=== PATIENT | female | born 1955 | race Two or more races ===

== ENCOUNTER → 2020-06-17 09:55 | Outpatient (BNVA) | payer MEDICARE, SELFPAY | PROVIDERS: PCP Physician Assistant; Referring Provider Physician Assistant; Visit Provider Internal Medicine Gastroenterology | DX: K57.30 Diverticulosis of large intestine without perforation or abscess without bleeding (principal); K63.5 Polyp of colon; E53.8 Deficiency of other specified B group vitamins; Z98.890 Other specified postprocedural states | CPT/HCPCS: 99212 ==

== ENCOUNTER 2021-03-23 10:27 | Outpatient (REF) | payer MEDICARE, SELFPAY ==
--- NOTE | ~2021-03-23 | CT_ITS ---
EXAMINATION: CT CHEST SCREENING CLINICAL INFORMATION: Personal history of nicotine dependence. COMPARISON: 10/29/2019 TECHNIQUE: Multidetector volumetric CT imaging of the chest was performed without contrast using low-dose technique. Additional 2D coronal and sagittal reformatted images and axial 3D maximum intensity projection (MIP) images were generated on the CT workstation. This CT examination was performed using dose optimization techniques as appropriate, variously including the following: *Automated exposure control *Adjustment of mA and/or kV according to patient size (this includes techniques or standardized protocols for targeted exams where dose is matched to indication/reason for exam; i.e. extremities or head) *Use of iterative reconstruction technique DLP: 39 mGy-cm FINDINGS: LUNGS: Central airways are patent. No confluent airspace disease is identified. Mild changes of centrilobular emphysema seen in the upper lobes bilaterally. No significant interstitial thickening is seen. No bronchiectasis noted. Calcified granulomas are noted bilaterally. There are some sub-4 mm densities present. The patient has developed multiple bilateral small peripheral regions of ground-glass opacity which are likely due to endobronchial disease. Some of these densities/nodules are listed below: 5 mm noncalcified nodule within the right upper lobe on image 203 of 441. 6 mm noncalcified nodule posterior aspect of the right upper lobe on image 171 of 441. 4 mm noncalcified density within the right lower lobe on image 240 of 441. Subpleural 6 mm noncalcified density within the right upper lobe adjacent to the major fissure on image 139 of 441. 4 mm left upper lobe noncalcified density on image 149 of 441. 4 mm noncalcified nodule along the major fissure on the left on image 282 of 441. 4 mm noncalcified nodule within the left upper lobe on image 132 of 441. MEDIASTINUM: Heart normal size. No pericardial effusion. There are some coronary artery calcifications seen. Thyroid gland appears unremarkable. No evidence of mediastinal or hilar lymphadenopathy. No thoracic aortic aneurysm. PLEURA: There is no pleural effusion. No pleural mass or thickening. AXILLAE: No lymphadenopathy. UPPER ABDOMEN: Unremarkable. OSSEOUS STRUCTURES: No suspicious destructive bony lesions identified. CT/CT lung screening IMPRESSION: Old granulomatous disease. Numerous peripheral somewhat ill-defined densities, likely related to endobronchial disease, which may be inflammatory or infectious in etiology. ASSESSMENT: Lung-RADS category 4A: Suspicious. RECOMMENDATION: Short interval 3 month follow up low dose CT chest.
== END 2021-03-23 10:28 | disposition home or self-care (01) ==
LOC: HO.CT 10:27
PROVIDERS: Visit Provider Physician Assistant Medical
DX: Z12.2 Encounter for screening for malignant neoplasm of respiratory organs (principal); Z87.891 Personal history of nicotine dependence
CPT/HCPCS: 71271

== ENCOUNTER → 2021-04-13 08:45 | Outpatient (BNVA) | payer MEDICARE, SELFPAY | PROVIDERS: PCP Internal Medicine; Visit Provider Hospitalist | DX: J41.8 Mixed simple and mucopurulent chronic bronchitis (principal); R91.8 Other nonspecific abnormal finding of lung field; F17.200 Nicotine dependence, unspecified, uncomplicated; Z71.6 Tobacco abuse counseling; Z79.899 Other long term (current) drug therapy | CPT/HCPCS: 99202 ==

== ENCOUNTER 2021-04-15 10:21 | Outpatient (REF) | payer MEDICARE, SELFPAY ==
--- NOTE | ~2021-04-15 | MM_ITS ---
EXAMINATION: MM SCREENING DIGITAL BREAST TOMOSYNTHESIS, BILATERAL CLINICAL INFORMATION: Screening. Asymptomatic. Left stereotactic biopsy 11/12/2018 (Benign breast parenchyma with dense stroma and scattered foci of ductal hyperplasia, associated with a single, small focus showing microcalcification; deeper levels evaluated). The lifetime risk of breast cancer based on the Tyrer-Cuzick Model is 3%. COMPARISON: Mammography: 10/30/2019, 04/28/2019, 11/06/2018, 10/30/2018, 11/29/2015, 11/12/2015 TECHNIQUE: Digital breast tomosynthesis is performed in both the craniocaudal and mediolateral oblique views along with computer-aided detection (CAD). Synthesized 2D images are generated from the tomosynthesis. FINDINGS: There are scattered areas of fibroglandular density (ACR BI-RADS breast composition Category b). Breast tissue composition borders on heterogeneously dense. Parenchymal pattern is similar to prior studies. There is no developing density or interval mass or architectural abnormality. There is a biopsy clip marker anterior 12:00 left breast with stable adjacent calcifications. The axilla and skin contours are unremarkable. MM/MM tomosynthesis screening BI IMPRESSION: No significant changes from prior studies. ASSESSMENT: BI-RADS 2: Benign RECOMMENDATION: Routine annual mammography screening. This patient's information was entered into a reminder system with a target due date for their next mammogram.
== END 2021-04-15 10:22 | disposition home or self-care (01) ==
LOC: HO.MAMMO 10:21
PROVIDERS: Visit Provider Internal Medicine
DX: Z12.31 Encounter for screening mammogram for malignant neoplasm of breast (principal)
CPT/HCPCS: 77063; 77067

== ENCOUNTER 2021-07-06 09:00 | Outpatient (RCR) | payer MEDICARE, SELFPAY ==
--- NOTE | 2021-06-20 09:04 | MHC.PT.EP ---
[facility] [place] Office [place] Office [place] Office [address] [place] Peñaloza [address] [phone] F: [phone] F: [phone] F: [phone] F: [phone] Physical Therapy Plan of Care Date of Evaluation: Date of Surgery: Diagnosis: dizziness Assessment: The patient was + for upbeating torsional nystagmus. She tolerated CRM well for the right side. Pt will benefit from balance assessment and vor assessment once BPPV is resolved. Frequency and Duration: The patient will be seen 1x/week x 4 weeks. Short Term Goals: 1.Pt to be negative for nystagmus in all diagnostic positions for BPPV to facilitate improved functional movements. Stopboard Assembler Goals: 1. For the patient to be negative for nystagmus or reports of vertigo in all diagnostic positions bilaterally to resolution of BPPV in 4 weeks. 2. For the patient to be able to functionally move in all planes and directions without provocation of dizziness to show return to PLOF. 3.For the patient to be educated on symptoms and indications to return to therapy when needed in 4 weeks. Treatment Plan: Modalities to reduce pain, spasms and effusion. Manual therapy to restore motion and function. Therapeutic exercise to improve strength and flexibility. Neuromuscular re-education for posture and balance. Therapeutic activities to return to functional activities of daily living. Electronically signed by: Gauri Escoto PT DPT Please sign and return to therapist. Thank you for your referral.
== END 2021-07-10 08:00 | disposition home or self-care (01) ==
LOC: HO.PT 09:00
PROVIDERS: PCP Internal Medicine; Visit Provider Internal Medicine
DX: R42 Dizziness and giddiness (principal)
CPT/HCPCS: 95992; 97033; 97112; 97161

== ENCOUNTER 2021-07-11 10:57 | Outpatient (REF) | payer MEDICARE, SELFPAY ==
--- NOTE | ~2021-07-11 | CT_ITS ---
EXAMINATION: CT CHEST SCREENING CLINICAL INFORMATION: Nicotine dependence. COMPARISON: CT lung screening 03/23/2021. TECHNIQUE: Multidetector volumetric CT imaging of the chest is performed without contrast using low-dose technique. Additional 2D coronal and sagittal reformatted images and axial 3D maximum intensity projection (MIP) images are generated on the CT workstation. This CT examination was performed using dose optimization techniques as appropriate, variously including the following: *Automated exposure control *Adjustment of mA and/or kV according to patient size (this includes techniques or standardized protocols for targeted exams where dose is matched to indication/reason for exam; i.e. extremities or head) *Use of iterative reconstruction technique DLP: 38 mGy-cm FINDINGS: LUNGS: Mild emphysematous lungs or hyperinflation seen. No acute pneumonic consolidation. There are a few calcified scattered granulomas seen in the left lower lobe and lingular segments. Previously described noncalcified pulmonary nodules in the right upper lobe and right lower lobe are not visualized at this time. MEDIASTINUM: The thyroid lobes are symmetric and normal. The central trachea and the bronchi are widely patent. Heart size and the great vessels are normal caliber. No pericardial effusion is seen. No abnormal mediastinal or hilar lymph nodes are visualized. PLEURA: There is no pleural effusion. No pleural mass or thickening. AXILLAE: No lymphadenopathy. UPPER ABDOMEN: Visualized liver, spleen, pancreas and bilateral adrenal glands are unremarkable. OSSEOUS STRUCTURES: There is mild spondylosis of the dorsal spine. No lytic or sclerotic process is seen. CT/CT lung screen follow up IMPRESSION: Interval resolution of several 4 mm noncalcified nodules in both upper lobes and the right lower lobe. Those were inflammatory nodules and have resolved. No change in the punctate calcified granulomas in left lower lobe. No new pulmonary nodules seen. No abnormal mediastinal or hilar lymphadenopathy. ASSESSMENT: Lung-RADS category 2: Benign RECOMMENDATION: Low-dose annual CT chest.
== END 2021-07-11 10:58 | disposition home or self-care (01) ==
LOC: HO.CT 10:57
PROVIDERS: PCP Internal Medicine; Visit Provider Physician Assistant Medical
DX: Z12.2 Encounter for screening for malignant neoplasm of respiratory organs (principal); Z87.891 Personal history of nicotine dependence
CPT/HCPCS: 71250

== ENCOUNTER → 2021-07-22 10:27 | Outpatient (BNVA) | payer MEDICARE, SELFPAY | PROVIDERS: PCP Internal Medicine; Visit Provider Surgery | DX: R91.8 Other nonspecific abnormal finding of lung field (principal); Z79.899 Other long term (current) drug therapy; F17.210 Nicotine dependence, cigarettes, uncomplicated | CPT/HCPCS: 99212 ==

== ENCOUNTER 2021-09-15 10:29 | Outpatient (REF) | payer MEDICARE, SELFPAY ==
[2021-09-15 10:54] LABS: MANUAL DIFF FLAG NO
[2021-09-15 11:35] LABS: Basophils Percent Auto 0.5 % (0-2); Eosinophils Absolute Auto 1.2 X10*3/uL (0.0-0.4); Eosinophils Percent Auto 15.2 % (0-4); Hematocrit 41.9 % (37.0-47.0); Hemoglobin 13.8 g/dl (12.0-16.0); Imm Gran Abs Auto 0.02 X10*3/uL (0.00-0.03); Imm Gran Pct Auto 0.3 % (0.0-0.4); Lymphocytes Absolute Auto 2.4 X10*3/uL (1.2-4.9); Lymphocytes Percent Auto 30.7 % (20-40); Mean Corpuscular HGB Conc 32.9 g/dl (31.0-35.0); Mean Corpuscular Hemoglobin 32.2 pg (27.0-33.0); Mean Corpuscular Volume 97.9 fL (80.0-98.0); Mean Platelet Volume 11.9 fL (9.4-12.3); Monocytes Absolute Auto 0.4 X10*3/uL (0.1-1.2); Monocytes Percent Auto 5.3 % (2-11); Neutrophils Absolute Auto 3.7 x10*3/uL (2.0-8.3); Platelet Count 263 X10*3/uL (160-400); Red Blood Count 4.28 X10*6/uL (4.20-5.50); Red Cell Distribution Width 14.4 % (11.0-16.0); White Blood Count 7.8 X10*3/uL (4.8-10.8)
[2021-09-15 11:44] LABS: Estimated Average Glucose 114 mg/dL; Hemoglobin A1c % 5.6 %
[2021-09-15 12:02] LABS: Alanine Aminotransferase 11 U/L (0-31); Albumin Level 4.3 g/dL (3.5-5.0); Alkaline Phosphatase 110 U/L (39-117); Anion Gap 12 (12-20); Aspartate Amino Transferase 14 U/L (5-31); Bilirubin Total 0.3 mg/dL (0.0-1.0); Blood Urea Nitrogen 14 mg/dL (9-16); Carbon Dioxide 28 mmol/L (22-29); Chloride 103 mmol/L (96-108); Cholesterol 240 mg/dL; Estimated Glomerular Filt Rate 60; Glucose Random 97 mg/dL (60-115); HDL Cholesterol 56 mg/dL; LDL Cholesterol Calculated 145 mg/dl; Potassium 4.5 mmol/L (3.3-5.1); Sodium 138 mmol/L (135-145); Total Protein 7.6 g/dL (6.5-8.0); Triglycerides 199 mg/dL
[2021-09-15 12:25] LABS: Free T4 (Free Thyroxine) 0.85 ng/dL (0.71-1.85); Thyroid Stimulating Hormone 3.38 uIU/mL (0.32-4.0); Vitamin D 25-OH Total 14.7 ng/mL (>30)
[2021-09-15 12:33] LABS: Folate 14.2 ng/mL (> or = 4.0); Vitamin B12 199 pg/mL (200-900)
[2021-09-19 22:47] LABS: Intrinsic Factor Antibodies Negative (Negative)
[2021-09-21 14:07] LABS: Parietal Cell Antibody <=20.0 Unit (<=20.0)
== END 2021-09-15 10:30 | disposition home or self-care (01) ==
LOC: HO.LAB 10:29
PROVIDERS: Internal Medicine Gastroenterology; PCP Internal Medicine; Visit Provider Internal Medicine
DX: E78.00 Pure hypercholesterolemia, unspecified (principal); R73.02 Impaired glucose tolerance (oral)
CPT/HCPCS: 36415; 80053; 80061; 82306; 82607; 82746; 83036; 83516; 84439; 84443; 85025; 86340

== ENCOUNTER 2021-09-23 13:28 | Outpatient (REF) | payer MEDICARE, SELFPAY ==
--- NOTE | ~2021-09-23 | MM_ITS ---
EXAMINATION: BONE DENSITOMETRY CLINICAL INDICATION: Osteoporosis. COMPARISON: Previous BD dated 05/30/2019 and baseline BD dated 06/18/2009. TECHNIQUE: Using a [employer] DXA System (software version: 13.1) manufactured by [employer], dual-energy x-ray absorptiometry was performed of the lumbar spine and left hip. The images are of good technical quality. Summary results are attached. FINDINGS: AP SPINE L1-L4: Current: BMD 0.859 g/cm2, Z-score -0.9, T-score -2.7, osteoporosis, 1.7% decrease from previous, 2.3% increase from baseline (<5% change is not significant). Prior: BMD 0.874 g/cm2. Baseline: BMD 0.840 g/cm2. LEFT FEMUR, NECK: Current: BMD 0.653 g/cm2, Z-score -1.1, T-score -2.8, osteoporosis. Prior: BMD 0.658 g/cm2. Baseline: BMD 0.670 g/cm2. LEFT FEMUR, TOTAL: Current: BMD 0.701 g/cm2, Z-score -1.0, T-score -2.4, osteopenia, 0.6% decrease from previous, 0.1% decrease from baseline (<5% change is not significant). Prior: BMD 0.705 g/cm2. Baseline: BMD 0.702 g/cm2. IDENTIFIED RISK FACTORS: Early menopause, family history (parent hip fracture), osteoporosis, secondary osteoporosis. HISTORY OF FRACTURE: None listed. MEDICATIONS: None listed. MM/XR DEXA axial skeleton IMPRESSION: 1. DIAGNOSIS: Osteoporosis based on the lowest T-score value of -2.8 in the femoral neck applying World Health Organization criteria. 2. 10-YEAR FRACTURE RISK PREDICTION, FRAX: Major osteoporotic fracture (clinical spine, forearm, hip or shoulder) 15.6%. Hip fracture 4.4%. 3. Treatment Recommendations: NOF guidelines recommend consideration for treatment in postmenopausal women and men age 50 and older presenting with the following: -A hip or vertebral (clinical or morphometric) fracture. -T-score less than or equal to -2.5 at the femoral neck or spine after appropriate evaluation to exclude secondary causes. -Low bone mass at the hip or spine and a 10-year fracture probability by FRAX of greater than or equal to 3% for hip fracture or greater than or equal to 20% for major osteoporotic fracture based on the [place] adapted WHO algorithm. 4. Other Recommendations: All treatment decisions require clinical judgment and consideration of individual patient factors, including patient preferences, comorbidities, previous drug use, risk factors not captured in the FRAX model (e.g. frailty, falls, vitamin D deficiency, increased bone turnover, interval significant decline in bone density) and possible under or overestimation of fracture risk by FRAX. Additional medical evaluation for secondary cause of low bone mineral density may be appropriate. FUTURE SCAN RECOMMENDATION: People with diagnosed cases of osteoporosis or at high risk for fracture should have regular bone mineral density tests. For patients eligible for Medicare, routine testing is allowed once every 2 years. The testing frequency can be increased to one year for patients who have rapidly progressing disease, those who are receiving or discontinuing medical therapy to restore bone mass, or have additional risk factors.
== END 2021-09-23 13:29 | disposition home or self-care (01) ==
LOC: HO.MAMMO 13:28
PROVIDERS: PCP Internal Medicine; Visit Provider Internal Medicine
DX: Z13.820 Encounter for screening for osteoporosis (principal); M81.0 Age-related osteoporosis without current pathological fracture; Z78.0 Asymptomatic menopausal state; Z87.81 Personal history of (healed) traumatic fracture
CPT/HCPCS: 77080

== ENCOUNTER 2021-11-07 12:06 | Emergency (ER) | payer MEDICARE, SELFPAY ==
--- NOTE | ~2021-11-07 | CT_ITS ---
EXAMINATION: CT HEAD WITHOUT CONTRAST CLINICAL INFORMATION: Headache. Numbness in left hand. COMPARISON: None TECHNIQUE: Contiguous axial imaging was performed from the skull base to vertex without intravenous administration of contrast. Coronal and sagittal reformatted images are performed at CT scanner This CT examination was performed using dose optimization techniques as appropriate, variously including the following: *Automated exposure control *Adjustment of mA and/or kV according to patient size (this includes techniques or standardized protocols for targeted exams where dose is matched to indication/reason for exam; i.e. extremities or head) *Use of iterative reconstruction technique DLP: 721 mGy-cm FINDINGS: There is no evidence of acute intracranial hemorrhage or territorial infarction. No abnormal mass effect or midline shift is seen. Baeza to white matter differentiation is well preserved. No extra-axial fluid collections are identified. The ventricles are normal in size. There is no abnormal attenuation within the brain parenchyma. The osseous structures and soft tissues are normal. The mastoid air cells and visualized portions of the paranasal sinuses are well aerated. CT/CT head/brain wo con IMPRESSION: No acute intracranial pathology.
[2021-11-07 14:06] VITALS: BP 165/95; PULSE 90; RESP 18; TEMP 36.6; O2SAT 96; BMI 28.0
[2021-11-07 14:24] LABS: MANUAL DIFF FLAG NO
[2021-11-07 14:25] LABS: Basophils Absolute Auto 0.1 X10*3/uL (0.0-0.2); Eosinophils Absolute Auto 0.7 X10*3/uL (0.0-0.4); Eosinophils Percent Auto 7.8 % (0-4); Hematocrit 40.6 % (37.0-47.0); Hemoglobin 13.6 g/dl (12.0-16.0); Imm Gran Abs Auto 0.02 X10*3/uL (0.00-0.03); Imm Gran Pct Auto 0.2 % (0.0-0.4); Lymphocytes Absolute Auto 3.4 X10*3/uL (1.2-4.9); Lymphocytes Percent Auto 36.1 % (20-40); Mean Corpuscular HGB Conc 33.5 g/dl (31.0-35.0); Mean Corpuscular Hemoglobin 32.2 pg (27.0-33.0); Mean Platelet Volume 10.9 fL (9.4-12.3); Monocytes Absolute Auto 0.5 X10*3/uL (0.1-1.2); Monocytes Percent Auto 5.1 % (2-11); Neutrophils Absolute Auto 4.6 x10*3/uL (2.0-8.3); Neutrophils Percent Auto 49.8 % (45-73); Platelet Count 308 X10*3/uL (160-400); Red Blood Count 4.23 X10*6/uL (4.20-5.50); Red Cell Distribution Width 14.5 % (11.0-16.0); White Blood Count 9.3 X10*3/uL (4.8-10.8)
[2021-11-07 14:43] LABS: Anion Gap 17 (12-20); Blood Urea Nitrogen 14 mg/dL (9-16); Calcium 9.7 mg/dL (8.4-10.2); Carbon Dioxide 20 mmol/L (22-29); Chloride 104 mmol/L (96-108); Creatinine Clr Calc Pharmacy 48.3; Estimated Glomerular Filt Rate > 60; Glucose Random 93 mg/dL (60-115); Potassium 4.7 mmol/L (3.3-5.1); Sodium 136 mmol/L (135-145)
== END 2021-11-07 21:01 | disposition left against medical advice (07) ==
PROVIDERS: Emergency Provider Emergency Medicine; PCP Internal Medicine
DX: R20.0 Anesthesia of skin (principal); R51.9 Headache, unspecified; I10 Essential (primary) hypertension; F17.200 Nicotine dependence, unspecified, uncomplicated
CPT/HCPCS: 36415; 70450; 80048; 85025; 99282; 99284

== ENCOUNTER 2021-11-23 10:45 | Outpatient (REF) | payer MEDICARE, SELFPAY ==
[2021-11-23 12:24] LABS: Cholesterol 223 mg/dL; HDL Cholesterol 53 mg/dL; LDL Cholesterol Calculated 136 mg/dl; Triglycerides 172 mg/dL
== END 2021-11-23 10:46 | disposition home or self-care (01) ==
LOC: HO.LAB 10:45
PROVIDERS: PCP Internal Medicine; Visit Provider Nurse Practitioner Family
DX: E78.00 Pure hypercholesterolemia, unspecified (principal)
CPT/HCPCS: 36415; 80061

== ENCOUNTER 2022-02-09 11:47 | Emergency (ER) | payer MEDICARE, SELFPAY ==
--- NOTE | ~2022-02-09 | XR_ITS ---
EXAMINATION: XR CHEST CLINICAL INFORMATION: Cough COMPARISON: Play Back Operator film from CT dated 07/11/2021, chest film dated 10/23/2019 TECHNIQUE: 2 views of the chest were obtained. FINDINGS: There is no acute finding. The lung vee are felt to be grossly clear. No infiltrate. There is no effusion. The cardiac silhouette is comparable to previous. Tortuous versus ectatic arch and descending aorta. XR/XR chest 2V IMPRESSION: No acute finding.
[2022-02-09 12:08] VITALS: BP 104/80; PULSE 78; RESP 18; TEMP 36.9; O2SAT 100; BMI 26.9
--- NOTE | 2022-02-09 12:58 | ED_ITS ---
HPI - URI/Sore Throat General Chief Complaint: Upper Respiratory Symptoms Stated Complaint: headache, cold Time Seen by Provider: 02/09/22 12:39 Source: patient Mode of arrival: ambulatory Limitations: no limitations History of Present Illness HPI Narrative: 66-year-old female with a past medical history of COPD who is still smoking, history of generalized anxiety disorder and hyperlipidemia presents for 2 weeks of worsening cough. Patient also has had runny nose. Patient is using her albuterol inhaler 4 times a day, she does not usually uses this frequently. Patient denies fevers, sore throat, body aches, abdominal pain, vomiting, diarrhea, chest pain, shortness of breath. Patient saw her PCP on January 26, she had a cough then, PCP attributed this to her COPD. Related Data Previous Rx's Medication Instructions Recorded mecobalamin (vitamin B12) 1,000 1,000 mcg sublingual DAILY 30 days 06/17/20 mcg disintegrating #30 tabs tablet,sublingual albuterol sulfate 90 mcg/actuation 2 inh inhalation Q6H PRN shortness 09/27/21 aerosol inhaler of breath or wheezing 30 days #18 grams fluticasone furoate 100 1 inh inhalation DAILY 30 days #60 09/27/21 mcg-vilanterol 25 mcg/dose ea inhalation powder (Breo Ellipta) hydroxyzine HCl 25 mg tablet 25 mg PO TID PRN itching #30 tabs 09/27/21 sertraline 50 mg tablet 50 mg PO DAILY #90 tabs 09/27/21 melatonin 3 mg tablet 3 mg PO BEDTIME PRN sleep #30 tabs 11/24/21 alendronate 70 mg tablet 70 mg PO QWEEK #12 tabs 12/19/21 cholecalciferol (vitamin D3) 50 50 mcg PO DAILY #90 caps 12/30/21 mcg (2,000 unit) capsule (Vitamin D3) lisinopril 5 mg tablet 5 mg PO DAILY #90 tabs 01/26/22 trazodone 50 mg tablet 50 mg PO BEDTIME PRN sleep #30 tabs 01/26/22 albuterol sulfate 90 mcg/actuation 2 puff inhalation Q4-6H PRN 02/09/22 aerosol inhaler shortness of breath or wheezing #8.5 grams benzonatate 200 mg capsule 200 mg PO TID 5 days #15 caps 02/09/22 codeine 10 mg-guaifenesin 100 mg/5 5 ml PO Q6H PRN cough #120 mL 02/09/22 mL oral liquid doxycycline hyclate 100 mg tablet 100 mg PO BID 10 days #20 tabs 02/09/22 prednisone 20 mg tablet 40 mg PO DAILY 5 days #10 tabs 02/09/22 Allergies Allergy/AdvReac Type Severity Reaction Status Date / Time No Known Allergies Allergy Verified 01/26/22 13:01 [No Known Allergies*] Review of Systems Constitutional: Constitutional: Denies body ache(s), Denies chills, Denies fatigue, Denies fever(s), Denies headache(s), Denies malaise and Denies weakness Eyes: Eyes: Denies diplopia ENT: Denies vertigo, Denies dizziness, Denies otalgia, Denies headache(s), Denies mouth pain, Reports nasal congestion, Reports nasal discharge, Denies sinus pain, Denies sinus pressure, Denies sore throat and Denies throat swelling Cardiovascular: Cardiovascular: Denies chest pain, Denies syncope, Denies leg edema, Denies lightheadedness, Denies Loss of Consciousness, Denies palpitations and Denies dyspnea Respiratory: Respiratory: Denies chest congestion, Reports cough, Reports excessive phlegm production, Denies pain on inspiration, Denies pain with cough, Denies dyspnea, Denies stridor and Denies wheezing Gastrointestinal: Gastrointestinal: Denies abdominal pain, Denies hematochezia, Denies constipation, Denies diarrhea and Denies vomiting Musculoskeletal: Musculoskeletal: Reports no additional musculoskeletal complaints Neurologic: Denies confusion, Denies vertigo, Denies dizziness, Denies syncope, Denies headache(s) and Denies weakness Psychiatric: Psychiatric: Denies anxiety, Denies confusion and Denies depression Endocrine: Endocrine: Denies fatigue and Denies palpitations Allergic/Immunologic: Allergic/Immunologic: Denies throat swelling and Denies wheezing PMFSH Past Medical History Medical History Diverticulosis Insomnia Surgical History History of colonoscopy History of left breast biopsy Family History Family History Daughter Hx of cervical cancer Father Family hx of prostate cancer Mother Myocardial infarct Maternal Aunt Pancreatic cancer, Onset Age: 55 Social History Social History Household Members: Spouse Housing: Apartment Alcohol intake: current Alcohol intake frequency: holidays/special occasions only Patient Tobacco Use Status: Current everyday Tobacco user Tobacco use type: Cigarette Cigarettes Per Day: 5 Years Smoked: 17 years e-Cigarette/Vaping Use: Never Used Second Hand Smoke Exposure: Yes Advance Directives: No Advance Directives Information Provided: No service: No Current occupational status: retired Current occupational exposures/hazards: No Cognitive needs: No Hearing needs: No Vision needs: Yes Physical Exam Vital Signs: Vital Signs: Last Vital Signs Temp 98.4 F 02/09/22 12:08 Pulse 70 02/09/22 13:41 Resp 18 02/09/22 13:41 BP 104/80 02/09/22 12:08 Pulse Ox 100 02/09/22 12:08 O2 Del Method 02/09/22 12:08 BMI result Body Mass Index 26.9 Const: General: No confusion Nutritional Appearance: well nourished Orientation/consciousness: No confusion Limitations: no limitations HEENT: Head: Yes normal to inspection, Yes normocephalic and Yes atraumatic Ears: hearing grossly normal bilaterally, external ears normal, TM's normal bilaterally and EAC's normal General nose exam: Normal external nose present Face and sinus: Yes normal facial exam and Yes sinuses nontender Mouth: Normal oral and palatal mucosa present Throat: Yes posterior oropharynx normal Eyes: Conjunctivae: conjunctivae normal Pupils: Equal, round and reactive pupils present EOM: EOMs intact bilaterally Neck: Neck: Yes full ROM, Yes no lymphadenopathy and Yes supple Resp: Effort & Inspection: normal respiratory effort and able to speak in complete sentences Auscultation: no crackles, no rales, no rhonchi, no wheezes and diminished lung sounds (Mildly bilaterally) Cardio: Rate: regular rate Rhythm: regular rhythm Heart sounds: S1 normal heart sound present and S2 normal heart sound present GI: Inspection: Yes normal to inspection Palpation (GI): Soft to palpation, nontender, no guarding and not rigid Percussion: Yes normal to percussion Auscultation: normal bowel sounds Skin: General skin exam: no rashes or lesions noted Neuro: General: No confusion Cranial nerves: Yes Equal, round and reactive pupils present Extrem: General: Yes normal to inspection and Yes full ROM Psych: Appearance: grossly normal Affect: normal affect Attitude: cooperative Thought process: Normal thought process present Course Course Course Narrative: 66-year-old female presents with 2 weeks of worsening cough and runny nose, patient has past history of COPD and continues to smoke. Patient has had to use her inhalers more frequently. No fevers. On exam, patient has no wheezes or rhonchi, lungs are mildly diminished bilaterally, ENT exam is benign The patient has stable vitals, satting 100% on room air, not tachypneic Will get COVID, flu, chest x-ray, give nebulizer Anticipate COPD exacerbation, will treat accordingly Reevaluation(s) Reevaluation #1: On reexamination, patient is moving a little more air after her breathing treatment. Chest x-ray is negative. COVID and flu are negative. Because patient has had a persistent cough for over 2 weeks will treat with antibiotics, will also treat with prednisone, albuterol inhaler, Tessalon Perles, cough syrup for night Patient should call her primary care provider for follow-up appointment from today's emergency room visit FINDINGS: There is no acute finding. The lung vee are felt to be grossly clear. No infiltrate. There is no effusion. The cardiac silhouette is comparable to previous. Tortuous versus ectatic arch and descending aorta. XR/XR chest 2V IMPRESSION: No acute finding. MDM - URI/Sore Throat Lab Data Labs: Lab Results 02/09/22 02/09/22 Range/Units 12:43 12:43 COVID-19 (RAJESH) Negative (Negative) COVID-19 Clin Com See Note Influenza Type A (KYRA) Negative (Negative) Influenza Type B (KYRA) Negative (Negative) Influenza A & B Note See Note Discharge Plan Discharge Clinical Impression: Bronchitis, Acute exacerbation of chronic obstructive pulmonary disease Patient Disposition: Home, Self-Care Instructions: Acute Bronchitis (ED), COPD (Chronic Obstructive Pulmonary Disease) (ED) Additional Instructions: Please use your albuterol inhaler, 2 puffs every 4 hours while you are awake. Please take the benzonatate 3 times a day, these are pills for cough. Please take the cough syrup at nights he can sleep. Please start the antibiotic doxycycline today. Please take the prednisone I prescribed starting tomorrow, y ou had your prednisone today. Please call your primary care provider for follow-up appointment. If you have any worsening shortness of breath, cough, fevers, please return to emergency room Prescriptions: New doxycycline hyclate 100 mg tablet 100 mg PO BID 10 Days Qty: 20 0RF albuterol sulfate 90 mcg/actuation HFA aerosol inhaler 2 puff inhalation Q4-6H PRN (Reason: shortness of breath or wheezing) Qty: 8.5 0RF codeine-guaifenesin 10-100 mg/5 mL liquid 5 ml PO Q6H PRN (Reason: cough) Qty: 120 0RF prednisone 20 mg tablet 40 mg PO DAILY 5 Days Qty: 10 0RF benzonatate 200 mg capsule 200 mg PO TID 5 Days Qty: 15 0RF No Action alendronate 70 mg tablet 70 mg PO QWEEK Qty: 12 0RF Rx Instructions: every Sunday cholecalciferol (vitamin D3) [Vitamin D3] 50 mcg (2,000 unit) capsule 50 mcg PO DAILY Qty: 90 0RF lisinopril 5 mg tablet 5 mg PO DAILY Qty: 90 2RF trazodone 50 mg tablet 50 mg PO BEDTIME PRN (Reason: sleep) Qty: 30 3RF albuterol sulfate 90 mcg/actuation HFA aerosol inhaler 2 inh inhalation Q6H PRN (Reason: shortness of breath or wheezing) 30 Days Qty: 18 2RF Breo Ellipta 100-25 mcg/dose blister with device 1 inh inhalation DAILY 30 Days Qty: 60 2RF hydroxyzine HCl 25 mg tablet 25 mg PO TID PRN (Reason: itching) Qty: 30 0RF sertraline 50 mg tablet 50 mg PO DAILY Qty: 90 0RF melatonin 3 mg tablet 3 mg PO BEDTIME PRN (Reason: sleep) Qty: 30 0RF mecobalamin (vitamin B12) 1,000 mcg tablet,disintegrating 1,000 mcg sublingual DAILY 30 Days Qty: 30 3RF Rx Instructions: place tablet under tongue and allow to dissolve for at least30 secs before swallowing
[2022-02-09 13:30] LABS: Influenza A Negative (Negative); Influenza B2 Negative (Negative)
[2022-02-09 13:31] LABS: COVID-19 Test Negative (Negative); IDNOW Serial# 16C4AD1C
[2022-02-09] MEDS: Albuterol/Iprat 2.5/0.5MG 3 ML AMPUL.NEB INHALE (13:39)
[2022-02-09 13:41] VITALS: PULSE 70; RESP 18; O2SAT 98
[2022-02-09] MEDS: guaiFENesin 200 MG/10 ML 10 ML LIQUID PO (14:35)
[2022-02-09] MEDS: predniSONE 20 MG TABLET 60 MG PO (15:15)
== END 2022-02-09 15:40 | disposition home or self-care (01) ==
PROVIDERS: Physician Assistant; Emergency Provider Student in an Organized Health Care Education/Training Program; PCP Internal Medicine
DX: J44.1 Chronic obstructive pulmonary disease with (acute) exacerbation (principal); F17.210 Nicotine dependence, cigarettes, uncomplicated; Z20.822 Contact with and (suspected) exposure to COVID-19
CPT/HCPCS: 71046; 87502; 87635; 94640; 99284

== ENCOUNTER 2022-03-09 09:51 | Outpatient (REF) | payer MEDICARE, SELFPAY ==
--- NOTE | 2022-03-09 10:00 | EMG_ITS ---
Left median and ulnar motor and sensory studies were performed. Left radial sensory study was performed. Paraspinal muscles were tested with a needle. IMPRESSION: Mild left median neuropathy across carpal tunnel. MD KING Mejia/DUANE / [id number]
== END 2022-03-09 09:52 | disposition home or self-care (01) ==
LOC: HO.NEURO 09:51
PROVIDERS: PCP Internal Medicine; Visit Provider Nurse Practitioner Family
DX: R20.0 Anesthesia of skin (principal)
CPT/HCPCS: 95886; 95909

== ENCOUNTER 2022-04-17 10:12 | Outpatient (REF) | payer MEDICARE, SELFPAY ==
--- NOTE | ~2022-04-17 | MM_ITS ---
EXAMINATION: MM SCREENING DIGITAL BREAST TOMOSYNTHESIS, BILATERAL CLINICAL INFORMATION: Screening. Asymptomatic. The lifetime risk of breast cancer based on the Tyrer-Cuzick Model is 3%. COMPARISON: Mammography: 04/15/2021, 10/30/2019, 04/28/2019, 11/06/2018, 10/30/2018 TECHNIQUE: Digital breast tomosynthesis is performed in both the craniocaudal and mediolateral oblique views along with computer-aided detection (CAD). Synthesized 2D images are generated from the tomosynthesis. FINDINGS: There are scattered areas of fibroglandular density (ACR BI-RADS breast composition Category b). Breast tissue composition borders on heterogeneously dense. Parenchymal pattern is similar to prior exams. There is no developing density or interval mass or architectural abnormality. Biopsy clip marker with stable adjacent calcifications again noted anterior 12:00 left breast. The axilla and skin contours are unremarkable. No significant changes. MM/MM tomosynthesis screening BI IMPRESSION: No mammographic evidence of malignancy. No significant changes from prior exams. ASSESSMENT: BI-RADS 2: Benign RECOMMENDATION: Routine annual mammography screening. This patient's information was entered into a reminder system with a target due date for their next mammogram.
== END 2022-04-17 10:13 | disposition home or self-care (01) ==
LOC: HO.MAMMO 10:12
PROVIDERS: Visit Provider Internal Medicine
DX: Z12.31 Encounter for screening mammogram for malignant neoplasm of breast (principal)
CPT/HCPCS: 77063; 77067

== ENCOUNTER 2022-06-30 13:12 | Outpatient (REF) | payer MEDICARE, SELFPAY ==
--- NOTE | ~2022-06-30 | CT_ITS ---
EXAMINATION: CT CHEST SCREENING CLINICAL INFORMATION: Current smoker. 1 pack per day x17 years. COMPARISON: CT chest 07/11/2021 and 10/29/2019. TECHNIQUE: Multidetector volumetric CT imaging of the chest was performed without contrast using low-dose technique. Additional 2D coronal and sagittal reformatted images and axial 3D maximum intensity projection (MIP) images were generated on the CT workstation. This CT examination was performed using dose optimization techniques as appropriate, variously including the following: *Automated exposure control *Adjustment of mA and/or kV according to patient size (this includes techniques or standardized protocols for targeted exams where dose is matched to indication/reason for exam; i.e. extremities or head) *Use of iterative reconstruction technique DLP: 41 mGy-cm FINDINGS: LUNGS: The lungs are well expanded and clear of acute pneumonic process. There are no noncalcified pulmonary nodules, mass or consolidation. There is a 2 mm calcified granuloma left lower lobe (axial image 220/6, 282/6) and several punctate, 1 mm calcified granulomas in both lower lobes and the lingula. MEDIASTINUM: Thyroid lobes are symmetrical and normal. The central trachea and the bronchi are widely patent. Heart size and the great vessels are normal caliber. No abnormal-sized mediastinal or hilar lymph nodes are seen. There is no pericardial effusion. CORONARY ARTERY CALCIFICATION: None visualized on this study. PLEURA: There is no pleural effusion. No pleural mass or thickening. AXILLA: No lymphadenopathy. There are bilateral dense breast tissues with punctate calcifications. UPPER ABDOMEN: Visualized liver, spleen, pancreas and bilateral adrenal glands are unremarkable. OSSEOUS STRUCTURES: No aggressive lytic or sclerotic process is seen. There is mild ventral spondylosis of the dorsal spine. CT/CT lung screen follow up IMPRESSION: There are punctate, calcified granulomas in both lungs but no noncalcified nodules, mass or consolidation. ASSESSMENT: Lung-RADS category 2: Benign. RECOMMENDATION: Low-dose annual CT chest.
== END 2022-06-30 13:13 | disposition home or self-care (01) ==
LOC: HO.CT 13:12
PROVIDERS: Visit Provider Surgery
DX: Z12.2 Encounter for screening for malignant neoplasm of respiratory organs (principal); Z87.891 Personal history of nicotine dependence
CPT/HCPCS: 71250

== ENCOUNTER 2022-12-20 11:16 | Outpatient (REF) | payer MEDICARE, SELFPAY ==
[2022-12-20 11:35] LABS: MANUAL DIFF FLAG NO
[2022-12-20 11:59] LABS: Basophils Percent Auto 0.5 % (0-2); Eosinophils Absolute Auto 0.6 X10*3/uL (0.0-0.4); Eosinophils Percent Auto 7.9 % (0-4); Hematocrit 41.5 % (37.0-47.0); Hemoglobin 13.5 g/dl (12.0-16.0); Imm Gran Abs Auto 0.06 X10*3/uL (0.00-0.03); Imm Gran Pct Auto 0.8 % (0.0-0.4); Lymphocytes Absolute Auto 2.5 X10*3/uL (1.2-4.9); Lymphocytes Percent Auto 31.7 % (20-40); Mean Corpuscular HGB Conc 32.5 g/dl (31.0-35.0); Mean Corpuscular Volume 95.2 fL (80.0-98.0); Mean Platelet Volume 11.1 fL (9.4-12.3); Monocytes Absolute Auto 0.5 X10*3/uL (0.1-1.2); Neutrophils Absolute Auto 4.2 x10*3/uL (2.0-8.3); Neutrophils Percent Auto 53.1 % (45-73); Platelet Count 291 X10*3/uL (160-400); Red Blood Count 4.36 X10*6/uL (4.20-5.50); Red Cell Distribution Width 14.4 % (11.0-16.0)
[2022-12-20 12:21] LABS: Estimated Average Glucose 117 mg/dL; Hemoglobin A1c % 5.7 %
[2022-12-20 12:33] LABS: Alanine Aminotransferase 7 U/L (0-31); Albumin Level 4.2 g/dL (3.5-5.0); Alkaline Phosphatase 106 U/L (39-117); Anion Gap 12 (12-20); Aspartate Amino Transferase 12 U/L (5-31); Bilirubin Total 0.3 mg/dL (0.0-1.0); Blood Urea Nitrogen 14 mg/dL (9-16); Calcium 9.8 mg/dL (8.4-10.2); Carbon Dioxide 29 mmol/L (22-29); Chloride 106 mmol/L (96-108); Cholesterol 238 mg/dL; Estimated Glomerular Filt Rate 58; Glucose Random 119 mg/dL (60-115); HDL Cholesterol 50 mg/dL; LDL Cholesterol Calculated 149 mg/dl; Potassium 4.7 mmol/L (3.3-5.1); Sodium 142 mmol/L (135-145); Total Protein 7.1 g/dL (6.5-8.0); Triglycerides 195 mg/dL
[2022-12-20 12:54] LABS: Folate 7.8 ng/mL (> or = 4.0); Free T4 (Free Thyroxine) 0.94 ng/dL (0.71-1.85); Thyroid Stimulating Hormone 2.65 uIU/mL (0.32-4.0); Vitamin B12 283 pg/mL (200-900); Vitamin D 25-OH Total 43.7 ng/mL (>30)
== END 2022-12-20 11:17 | disposition home or self-care (01) ==
LOC: HO.LAB 11:16
PROVIDERS: PCP Internal Medicine; Visit Provider Internal Medicine
DX: R73.02 Impaired glucose tolerance (oral) (principal); E78.00 Pure hypercholesterolemia, unspecified; I10 Essential (primary) hypertension; M81.0 Age-related osteoporosis without current pathological fracture
CPT/HCPCS: 36415; 80053; 80061; 82306; 82607; 82746; 83036; 84439; 84443; 85025

== ENCOUNTER 2023-01-16 10:07 | Outpatient (REF) | payer MEDICARE, SELFPAY ==
--- NOTE | ~2023-01-16 | XR_ITS ---
EXAMINATION: XR CHEST CLINICAL INFORMATION: Cough COMPARISON: 02/09/2022 TECHNIQUE: 2 views of the chest were obtained. FINDINGS: No significant abnormality is noted involving the heart, lungs, mediastinum, bony thorax or soft tissues. XR/XR chest 2V IMPRESSION: Unremarkable examination.
== END 2023-01-16 10:08 | disposition home or self-care (01) ==
LOC: HO.MAMMO 10:07
PROVIDERS: PCP Internal Medicine; Visit Provider Internal Medicine
DX: R05.9 Cough, unspecified (principal)
CPT/HCPCS: 71046

== ENCOUNTER 2023-05-17 10:33 | Outpatient (AMB) | payer MEDICARE, SELFPAY ==
[2023-05-17 10:37] VITALS: BP 130/82; PULSE 98; O2SAT 99; BMI 27.9
--- NOTE | 2023-05-17 10:37 | A.OFFPC_ITS ---
Vital Signs 05/17/23 10:37 Height 4 ft 11 in Weight 138 lb BMI 27.9 BP 130/82 Blood Pressure Location Lt brachial Position Sitting Pulse 98 Pulse Source Pulse Oximeter Pulse Oximetry (%) 99 Oxygen Delivery Method Room Air Intake Visit Reasons: 3 month f/u Allergies No Known Allergies [No Known Allergies*] Allergy (Verified 05/17/23 10:38) Medication List - Last Reconciled 05/17/23 by Sofía Gallo MD albuterol sulfate 90 mcg/actuation 2 inhalations inhalation Q6H PRN 30 days alendronate 70 mg PO QWEEK cetirizine (Zyrtec) 10 mg PO DAILY cholecalciferol (vitamin D3) (Vitamin D3) 50 mcg PO DAILY zvtslnteffr-rnxsnlcez-dyuqdhhc 200-62.5-25 mcg (Trelegy Ellipta) 1 inh inhalation DAILY hydroxyzine HCl 25 mg PO TID PRN lisinopril 5 mg PO DAILY mecobalamin (vitamin B12) 1,000 mcg sublingual DAILY 30 days melatonin 3 mg PO BEDTIME PRN olopatadine 0.7% (Pataday Once Daily Relief) 1 drp ophthalmic (eye) DAILY sertraline 50 mg PO DAILY trazodone 100 mg PO BEDTIME PRN Tobacco use date assessed: 11/14/22 Fall risk assessment: No Falls in past year Last assessed Fall Risk: 05/17/23 Dental Screening Dental Screen Date: 05/17/23 Did you have a dental visit in the last 12 months?: Yes Did you have a dental problem in the last 6 months where you did not have access to dental care?: No Was dental information given to patient?: Patient has dentist HPI 3 month f/u HPI Details 68-year-old overweight female smoker wit h COPD hypertension impaired glucose tolerance hypercholesterolemia and generalized anxiety disorder last seen in December 2022. Patient has mammogram is due up-to-date with bone density and colonoscopy. Patient complained of a cough the last time x-ray was done revealing negative results. Patient is up-to-date with a CT scan of the chest for lung cancer screening done in June 2022. still smoking - 4 cigarettes a day patient complains of feeling tired and reviewed medications patient states has not been able to sleep at night was given trazodone but did not help. Will give zolpidem to try. The other problem is hydroxyzine. Patient is taking it during the daytime and advised to stop it is because this can cause drowsiness. Patient's last complete blood work was in December. With the tiredness will just check. [facility] Medical History (Updated 05/17/23 @ 11:38 by Sofía Gallo MD) Breast cancer screening by mammogram Allergic conjunctivitis and rhinitis Difficulty sleeping Lip numbness Numbness of fingers Osteoporosis Hypercholesterolemia Generalized anxiety disorder Tobacco dependence Pulmonary nodules COPD (chronic obstructive pulmonary disease) Personal history of nicotine dependence Vitamin B12 deficiency Diverticulosis Insomnia Osteoporosis Surgical History History of left breast biopsy History of colonoscopy Family History (Updated 11/21/22 @ 14:13 by LINA Alvarado) Daughter Hx of cervical cancer Father Family hx of prostate cancer Mother Myocardial infarct Maternal Aunt Pancreatic cancer, Onset Age: 55 Social History Household Members: Spouse Housing: Apartment Alcohol intake: current Alcohol intake frequency: holidays/special occasions only Patient Tobacco Use Status: Former Tobacco user Quit Date: 2 months ago Tobacco use type: Cigarette Cigarettes Per Day: 3 Years Smoked: 17 years e-Cigarette/Vaping Use: Never Used Second Hand Smoke Exposure: Yes service: No Current occupational status: retired Current occupational exposures/hazards: No Cognitive needs: No Hearing needs: No Vision needs: Yes Questionnaire Thrive Questionnaire Date Thrive assessed: 11/14/22 AUDIT C Alcohol Use Questionnaire (AUDIT-C) 1. How often do you have a drink containing alcohol?: Monthly or less 2. How many drinks containing alcohol do you have on a typical day when you are drinking?: 1 or 2 3. How often do you have six or more drinks on one occasion?: Never Total Score: 1 MAN-7 AMB Questionnaire MAN-7 Date MAN - 7 assessed: 01/09/23 Source: Developed by Drs. Leobardo Campos, Charlene Stoll, Syed Burk and colleagues, with an educational guera from [employer]. Physical exam (Primary Care) Vital Signs: Last Vital Signs Pulse 98 05/17/23 10:37 BP 130/82 05/17/23 10:37 Pulse Ox 99 05/17/23 10:37 Oxygen Delivery Method Room Air 05/17/23 10:37 BMI result Body Mass Index 27.9 Tobacco/Smoking Status: Tobacco use Status Tobacco use date assessed 11/14/22 05/17/23 10:41 Patient Tobacco Use Status Former Tobacco user 05/17/23 10:41 Tobacco use type Cigarette 05/17/23 10:41 e-Cigarette/Vaping Use Never Used 05/17/23 10:41 Thrive Assessment: Date of Thrive Assessment Date Thrive assessed 11/14/22 05/17/23 10:41 Const General: alert; No acute distress Eyes Conjunctivae: conjunctivae normal Resp Auscultation: clear to auscultation bilaterally Cardio Rate: regular rate Rhythm: regular rhythm GI Inspection: Yes normal to inspection Extrem General: Yes normal to inspection and No edema Assessment and Plan Assessment & Plan (1) Cough: Code(s): R05.9 - Cough, unspecified Plan: Chest x-ray done revealing negative results and a CT scan is done yearly. June 2022 last 1 (2) Tobacco abuse: Comment: stopped smoking 10/2022 Code(s): Z72.0 - Tobacco use Plan: Patient has been strongly advised to stop smoking! (3) Hypertension: Code(s): I10 - Essential (primary) hypertension Plan: Continue with blood pressure medication. Decrease salt intake and exercise a patient on lisinopril 5 mg once a day (4) Impaired glucose tolerance: Code(s): R73.02 - Impaired glucose tolerance (oral) Plan: Decrease the amount of carbohydrate intake, pasta, bread, rice and potatoes are all sugar and that is aside from all the sweet stuff, remember that fruits are good but they are Sweet also. Continue to monitor December 2022 last blood work (5) Hypercholesterolemia: Code(s): E78.00 - Pure hypercholesterolemia, unspecified Plan: Avoid fried foods, chicken skin, eggs, butter margarine, pastries and meat. Be it pork or beef they have a lot of cholesterol LDL goal of less than 130 and triglyceride of less than 150. Patient is on diet control right now will need to repeat blood work (6) Generalized anxiety disorder: Code(s): F41.1 - Generalized anxiety disorder Plan: Continue with hydroxyzine and sertraline (7) Pulmonary nodules: Comment: March 2021 CT scan, June 2022 Code(s): R91.8 - Other nonspecific abnormal finding of lung field Plan: CT scan continue to be monitored June 2022 (8) COPD (chronic obstructive pulmonary disease): Comment: Stopped smoking 10/2022 Code(s): J44.9 - Chronic obstructive pulmonary disease, unspecified Qualifiers: COPD type: chronic bronchitis Chronic bronchitis type: mixed simple and mucopurulent Qualified Code(s): J41.8 - Mixed simple and mucopurulent chronic bronchitis Plan: Continue with the inhaler Trelegy to rinse mouth after using it (9) Breast cancer screening by mammogram: Code(s): Z12.31 - Encounter for screening mammogram for malignant neoplasm of breast (10) Insomnia: Code(s): G47.00 - Insomnia, unspecified Orders: Orders Comprehensive Met. Panel Today I10 - Essential (primary) hypertension Complete Blood Count Auto Diff Today I10 - Essential (primary) hypertension Free T4 (Free Thyroxine) Today I10 - Essential (primary) hypertension Thyroid Stimulating Hormone Today I10 - Essential (primary) hypertension Hemoglobin A1c Today R73.02 - Impaired glucose tolerance (oral) Medications: New zolpidem 5 mg PO BEDTIME 14 tabs 0RF G47.00 - Insomnia, unspecified Changed From hydroxyzine HCl 25 mg PO TID PRN 30 tabs 0RF itching G47.00 - Insomnia, unspecified To hydroxyzine HCl 25 mg PO BEDTIME PRN 30 tabs 0RF itching G47.00 - Insomnia, unspecified Refilled cholecalciferol (vitamin D3) (Vitamin D3) 50 mcg PO DAILY 90 caps 0RF M81.0 - Age-related osteoporosis without current pathological fracture pwjyremvtwr-ygcurlndm-sudeufbl 200-62.5-25 mcg (Trelegy Ellipta) 1 inh inhalation DAILY 60 ea 3RF J41.8 - Mixed simple and mucopurulent chronic bronchitis albuterol sulfate 90 mcg/actuation 2 inhalations inhalation Q6H PRN 18 grams 2RF shortness of breath or wheezing 30 days J44.9 - Chronic obstructive pulmonary disease, unspecified Discontinued trazodone Discontinued Reason: Patient Refused 100 mg PO BEDTIME PRN 90 tabs 3RF sleep G47.00 - Insomnia, unspecified Coding Level of Care Code Est Pt Level 4 (45728) Diagnoses Cough R05.9 Tobacco abuse Z72.0 Hypertension I10 Impaired glucose tolerance R73.02 Hypercholesterolemia E78.00 Generalized anxiety disorder F41.1 Pulmonary nodules R91.8 Mixed simple and mucopurulent chronic bronchitis J41.8 COPD type: chronic bronchitis Chronic bronchitis type: mixed simple and mucopurulent Breast cancer screening by mammogram Z12.31 Insomnia G47.00
== END 2023-05-17 11:49 | disposition home or self-care (01) ==
PROVIDERS: Visit Provider Internal Medicine
DX: R05.9 Cough, unspecified (principal); I10 Essential (primary) hypertension; R73.02 Impaired glucose tolerance (oral); J41.8 Mixed simple and mucopurulent chronic bronchitis; E78.00 Pure hypercholesterolemia, unspecified; F41.1 Generalized anxiety disorder; R91.8 Other nonspecific abnormal finding of lung field; G47.00 Insomnia, unspecified
CPT/HCPCS: 99214

== ENCOUNTER 2023-05-29 13:58 | Emergency (ER) | payer MEDICARE, SELFPAY ==
[2023-05-29 15:56] VITALS: BP 156/76; PULSE 84; RESP 18; TEMP 36; O2SAT 99; BMI 28.4
--- NOTE | 2023-05-29 15:57 | ED.GENADULT ---
HPI - General Adult General Chief complaint: Animal Bite Stated complaint: dog bite Time Seen by Provider: 05/29/23 16:12 Source: patient, RN notes reviewed and old records reviewed Mode of arrival: ambulatory History of Present Illness HPI narrative: 68-year-old female with a past medical history of osteoporosis, HLD, anxiety, COPD, diverticulosis, presenting to the ED complaining of increasing swelling, erythema and pain to right hand s/p being bitten by her dog yesterday. Admits she has a chihuahua, is up-to-date on vaccinations. Patient is unsure when her last tetanus was. Denies injury to other area, admits to mild drainage. Denies fever/chills, numbness/tingling Onset (ago): day(s) Related Data Previous Rx's Medication Instructions Recorded melatonin 3 mg tablet 3 mg PO BEDTIME PRN sleep #30 tabs 11/24/21 alendronate 70 mg tablet 70 mg PO QWEEK #12 tabs 12/19/21 lisinopril 5 mg tablet 5 mg PO DAILY #90 tabs 01/26/22 olopatadine 0.7 % eye drops 1 drp ophthalmic (eye) DAILY #2.5 11/14/22 (Pataday Once Daily Relief) mL cetirizine 10 mg capsule (Zyrtec) 10 mg PO DAILY #10 caps 11/21/22 sertraline 50 mg tablet 50 mg PO DAILY #90 tabs 01/08/23 mecobalamin (vitamin B12) 1,000 1,000 mcg sublingual DAILY 30 days 01/09/23 mcg disintegrating #30 tabs tablet,sublingual albuterol sulfate 90 mcg/actuation 2 inh inhalation Q6H PRN shortness 05/17/23 aerosol inhaler of breath or wheezing 30 days #18 grams cholecalciferol (vitamin D3) 50 50 mcg PO DAILY #90 caps 05/17/23 mcg (2,000 unit) capsule (Vitamin D3) fluticasone fur. 200 mcg-umeclid 1 inh inhalation DAILY #60 ea 05/17/23 62.5 mcg-vilant 25 mcg inhalat.powder (Trelegy Ellipta) hydroxyzine HCl 25 mg tablet 25 mg PO BEDTIME PRN itching #30 05/17/23 tabs zolpidem 5 mg tablet 5 mg PO BEDTIME #14 tabs 05/17/23 amoxicillin 875 mg-potassium 1 tab PO BID 7 days #14 tabs 05/29/23 clavulanate 125 mg tablet Allergies Allergy/AdvReac Type Severity Reaction Status Date / Time No Known Allergies Allergy Verified 05/17/23 10:38 [No Known Allergies*] Review of Systems Review of Systems: Constitutional: No Fever, No Chills ENT/Mouth: No Ear Pain, No Nasal Congestion, No sore throat, No Rhinorrhea, No Swallowing Difficulty Cardiovascular: No Chest Pain, No SOB Respiratory: No Cough, No Sputum Gastrointestinal: No Nausea, No Vomiting, No Abdominal pain Genitourinary: No Dysuria, No Urinary Frequency, No Hematuria, No Flank Pain Musculoskeletal: +joint pain, No Myalgias, +Joint Swelling Skin: + Skin Lesions, No rash Neuro: No Weakness, No Numbness, No Paresthesias Yes all other systems are reviewed and are negative Constitutional: Constitutional: Reports as per [facility] Past Medical History Attestation statement: The following information was validated with the patient. Source: old records reviewed Medical History Breast cancer screening by mammogram Allergic conjunctivitis and rhinitis Difficulty sleeping Lip numbness Numbness of fingers Osteoporosis Hypercholesterolemia Generalized anxiety disorder Tobacco dependence Pulmonary nodules COPD (chronic obstructive pulmonary disease) Personal history of nicotine dependence Vitamin B12 deficiency Diverticulosis Insomnia Osteoporosis Surgical History History of left breast biopsy History of colonoscopy Family History Family History Daughter Hx of cervical cancer Father Family hx of prostate cancer Mother Myocardial infarct Maternal Aunt Pancreatic cancer, Onset Age: 55 Social History Social History Household Members: Spouse Housing: Apartment Alcohol intake: current Alcohol intake frequency: holidays/special occasions only Patient Tobacco Use Status: Former Tobacco user Quit Date: 2 months ago Tobacco use type: Cigarette Cigarettes Per Day: 3 Years Smoked: 17 years e-Cigarette/Vaping Use: Never Used Second Hand Smoke Exposure: Yes Advance Directives: No Advance Directives Information Provided: No service: No Current occupational status: retired Current occupational exposures/hazards: No Cognitive needs: No Hearing needs: No Vision needs: Yes Physical Exam ED Vital Signs: Vital Signs - 24 hr 05/29/23 15:56 Temperature 96.8 F Pulse Rate 84 Respiratory Rate 18 Blood Pressure 156/76 H Pulse Oximetry 99 Oxygen Delivery Method Room Air BMI result Body Mass Index 28.4 Const General: cooperative, healthy appearing and no acute distress Orientation/consciousness: patient oriented x3 Limitations: no limitations HENMT Head: Yes normal to inspection and Yes atraumatic Ears: hearing grossly normal bilaterally General nose exam: Normal external nose present Face and sinus: Yes normal facial exam Eyes General: appearance normal, both eyes and all related structures EOM: EOMs intact bilaterally Neck Neck: Yes normal visual inspection and Yes no meningeal signs Resp Effort & Inspection: normal respiratory effort and no respiratory distress Cardio Rate: regular rate Peripheral pulses: radial pulses present and ulnar radial pulses present Skin Rashes: no rashes Neuro General: patient oriented x3, tone normal and no meningeal signs Cranial nerves: Yes CN's II-XII intact bilaterally Gait exam (Neuro): Normal gait present Extrem Other: Please refer to images above. Bite/puncture wound noted to 2nd MCP with surrounding swelling and erythema. Minimal drainage expressed. +ttp. No lymphangitis. Full range of motion to wrist and digits intact. Neurovascularly intact Course Course Course Narrative: This is an RME: Additional HPI, ROS, PE not included below will be deferred to primary provider. This is a [id number]-female presenting to the emergency department with a complaint of dog bite on right hand which occurred yesterday. Patient reports that her trauma bit her in the right hand. She has had increased swelling and pain to her right hand. She is right handed. Dogs rabies shots are up-to-date. Patient is unsure when her last tetanus shot was. Patient with tenderness to palpation over right second and third distal MCP. No fevers or chills. Plan: X-ray, Tdap -1641--case discussed with orthopedic OLAF Silverio who reports p.o. antibiotics are okay, recommended warm water soaks at home. Low suspicion for tenosynovitis at this time with swelling localized to the dorsum of hand -1720--mild leukocytosis of 11.5. CRP mildly elevated XR hand RT min 3V IMPRESSION: 1. No acute fractures or malalignment. 2. 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 Results discussed with patient including worrisome signs and symptoms and strict return precautions, and when to return to the emergency department. They verbalized understanding and feel safe for discharge at this time. Medical Decision Making Medical Decision Making [facility] Narrative: 68-year-old female with a past medical history of osteoporosis, HLD, anxiety, COPD, diverticulosis, presenting to the ED complaining of increasing swelling, erythema and pain to right hand s/p being bitten by her dog yesterday. On exam vital signs stable, NAD, nontoxic appearing, please refer to images above of noted puncture wound to right 2nd digit MCP with surrounding erythema and swelling. Minimal amount of drainage. Full range of motion and neurovascularly intact. Concern for cellulitis versus early tenosynovitis. Low suspicion for osteo, fracture, retained foreign body, septic joint/arthritis Plan: X-ray, labs including blood cultures, consult Orthopedics Please refer to course for remaining clinical decision making, interpretation of labs/imaging results, and discussions with consultants and/or family members. Differential Diagnosis Differential Diagnoses: The differential diagnosis associated with the presentation includes As above Admission/Observation Consideration of admission/observation: Escalation of care including admission/observation considered Consult Healthcare Provider Management of the patient was discussed with: Silo Operator (Orthopedics) Lab Data [facility] Lab Attestation statement: I reviewed the patient's lab results. 05/29/23 16:40 05/29/23 16:40 Labs: Lab Results 05/29/23 Range/Units 16:40 WBC 11.5 H (4.8-10.8) X10*3/uL RBC 4.28 (4.20-5.50) X10*6/uL Hgb 13.4 (12.0-16.0) g/dl Hct 41.4 (37.0-47.0) % MCV 96.7 (80.0-98.0) fL MCH 31.3 (27.0-33.0) pg MCHC 32.4 (31.0-35.0) g/dl RDW 14.4 (11.0-16.0) % Plt Count 304 (160-400) X10*3/uL MPV 11.2 (9.4-12.3) fL Immature Gran % (Auto) 0.3 (0.0-0.4) % Neut % (Auto) 48.7 (45-73) % Lymph % (Auto) 37.4 (20-40) % [place] % (Auto) 6.2 (2-11) % Eos % (Auto) 6.9 H (0-4) % Baso % (Auto) 0.5 (0-2) % Lymph # (Auto) 4.3 (1.2-4.9) X10*3/uL [place] # (Auto) 0.7 (0.1-1.2) X10*3/uL Eos # (Auto) 0.8 H (0.0-0.4) X10*3/uL Baso # (Auto) 0.1 (0.0-0.2) X10*3/uL Abs Immat Gran (auto) 0.03 (0.00-0.03) X10*3/uL Absolute Neuts (auto) 5.6 (2.0-8.3) x10*3/uL Absolute Nucleated RBC 0.000 (0.0-0.012) X10*3/uL Nucleated RBC % (auto) 0.0 (0.0-0.2) /100WBC Smear Tech's Comments VERIFIED Sodium 139 (135-145) mmol/L Potassium 4.2 (3.3-5.1) mmol/L Chloride 105 (96-108) mmol/L Carbon Dioxide 24 (22-29) mmol/L Anion Gap 14 (12-20) BUN 11 (9-16) mg/dL Creatinine 0.99 (0.5-1.4) mg/dL Estim Creat Clear Calc 42.8 Estimated GFR 55 Random Glucose 101 (60-115) mg/dL Calcium 9.8 (8.4-10.2) mg/dL C-Reactive Protein 1.08 H (< or = 0.50) mg/dL Radiology Impression Discussion of test interpretation with radiology: I have reviewed the radiologist's reading. External Record Review External record reviewed: Inpatient record, Office record, Outpatient record, Prior outpatient labs, Prior outpatient radiology, Primary care record and Outside ED record Tests considered The following testing was considered but not selected: As above Prescription Management I considered prescription management with: Pain Medication and Antibiotic Discharge Plan Discharge Clinical Impression: Dog bite, Cellulitis Patient Disposition: Home, Self-Care Instructions: Animal Bite (ED), Cellulitis (DC) Additional Instructions: IT IS IMPORTANT TO DO WARM WATER SOAKS AT HOME AUGMENTIN AN ANTIBIOTIC PLEASE TAKE PRESCRIBED YOU NEED TO HAVE CLOSE FOLLOW-UP WITH ORTHOPEDICS, CALL TOMORROW TO MAKE AN APPOINTMENT If area becomes more red, swollen, painful or has pus drainage or you have fever return to the ED immediately Take Tylenol and Motrin for pain Prescriptions: New amoxicillin-pot clavulanate 875-125 mg tablet 1 tab PO BID 7 Days Qty: 14 0RF No Action alendronate 70 mg tablet 70 mg PO QWEEK Qty: 12 0RF Rx Instructions: every Sunday sertraline 50 mg tablet 50 mg PO DAILY Qty: 90 1RF lisinopril 5 mg tablet 5 mg PO DAILY Qty: 90 2RF Hold Instructions: cough Zyrtec 10 mg capsule 10 mg PO DAILY Qty: 10 0RF Rx Instructions: Do not use Hydroxyzine when taking this medication. mecobalamin (vitamin B12) 1,000 mcg tablet,disintegrating 1,000 mcg sublingual DAILY 30 Days Qty: 30 3RF Rx Instructions: place tablet under tongue and allow to dissolve for at least30 secs before swallowing melatonin 3 mg tablet 3 mg PO BEDTIME PRN (Reason: sleep) Qty: 30 0RF Pataday Once Daily Relief 0.7 % drops 1 drp ophthalmic (eye) DAILY Qty: 2.5 0RF Rx Instructions: 1 Drop daily to both eyes for 7 days. cholecalciferol (vitamin D3) [Vitamin D3] 50 mcg (2,000 unit) capsule 50 mcg PO DAILY Qty: 90 0RF Trelegy Ellipta 200-62.5-25 mcg blister with device 1 inh inhalation DAILY Qty: 60 3RF albuterol sulfate 90 mcg/actuation HFA aerosol inhaler 2 inh inhalation Q6H PRN (Reason: shortness of breath or wheezing) 30 Days Qty: 18 2RF zolpidem 5 mg tablet 5 mg PO BEDTIME Qty: 14 0RF hydroxyzine HCl 25 mg tablet 25 mg PO BEDTIME PRN (Reason: itching) Qty: 30 0RF Referrals: [facility] Orth[facility] Surgeons [Provider Group] - 2 days
[2023-05-29 17:32] VITALS: BP 136/84; PULSE 88; RESP 16; TEMP 36.6; O2SAT 99
--- NOTE | 2023-05-29 17:38 | PC.NURSE ---
pt medicated per MAR, tdap given right deltoid, pt tolerated well.
== END 2023-05-29 17:39 | disposition home or self-care (01) ==
PROVIDERS: Emergency Provider Emergency Medicine Emergency Medical Services; PCP Internal Medicine
DX: S61.451A Open bite of right hand, initial encounter (principal); S60.511A Abrasion of right hand, initial encounter; L03.113 Cellulitis of right upper limb; W54.0XXA Bitten by dog, initial encounter; Y93.9 Activity, unspecified; Y92.9 Unspecified place or not applicable; Y99.9 Unspecified external cause status; Z79.899 Other long term (current) drug therapy; Z87.891 Personal history of nicotine dependence; Z23 Encounter for immunization
CPT/HCPCS: 36415; 73130; 80048; 85025; 85652; 86140; 87040; 90471; 90715; 96372; 99284; J1885

== ENCOUNTER 2023-06-05 09:43 | Outpatient (AMB) | payer MEDICARE, SELFPAY ==
--- NOTE | 2023-06-05 09:44 | MHC.OFFVIS ---
Intake Vital Signs 06/05/23 09:47 Height 4 ft 11 in Weight 140 lb BMI 28.3 Intake Visit Reasons: New Pt - right hand pain, DOI 05/28/23 Intake Note: Brittany is a 68 year old right hand dominant who presents today as a new patient for a evaluation of her right hand pain, DOI 05/28/23. Patient reports getting bit from her dog. She states that her wrist is feeling better no discomfort. Allergies No Known Allergies [No Known Allergies*] Allergy (Verified 06/05/23 09:44) HPI New Pt - right hand pain, DOI 05/28/23 HPI Details 68-year-old right hand dominant female who presents in the office today, as a new patient, for an evaluation of right hand pain. The patient presented to the ED on 05/29/2023 status post being bitten by her dog on 05/28/2023. X-rays of the right hand were obtained. She was prescribed amoxicillin-pot clavulanate 875-125 PO BID. She reports her wrist is feeling better with no discomfort. She denies numbness or tingling. She is still taking her antibiotic. [facility] Medical History Breast cancer screening by mammogram Allergic conjunctivitis and rhinitis Difficulty sleeping Lip numbness Numbness of fingers Osteoporosis Hypercholesterolemia Generalized anxiety disorder Tobacco dependence Pulmonary nodules COPD (chronic obstructive pulmonary disease) Personal history of nicotine dependence Vitamin B12 deficiency Diverticulosis Insomnia Osteoporosis Surgical History History of left breast biopsy History of colonoscopy Family History Daughter Hx of cervical cancer Father Family hx of prostate cancer Mother Myocardial infarct Maternal Aunt Pancreatic cancer, Onset Age: 55 Social History Household Members: Spouse Housing: Apartment Alcohol intake: current Alcohol intake frequency: holidays/special occasions only Patient Tobacco Use Status: Former Tobacco user Quit Date: 2 months ago Tobacco use type: Cigarette Cigarettes Per Day: 3 Years Smoked: 17 years e-Cigarette/Vaping Use: Never Used Second Hand Smoke Exposure: Yes service: No Current occupational status: retired Current occupational exposures/hazards: No Cognitive needs: No Hearing needs: No Vision needs: Yes Review of Systems Const All systems reviewed & are unremarkable except as noted in HPI and below Physical Exam Vital Signs: BMI result Body Mass Index 28.3 Const General: cooperative and no acute distress Orientation/consciousness: patient oriented x3 Resp Effort & Inspection: normal respiratory effort and able to speak in complete sentences Cardio Peripheral pulses: Peripheral pulses 2+ throughout Skin General skin exam: no rashes or lesions noted Neuro General: patient oriented x3 Extrem Other: Right hand: Normal to inspection. No ecchymosis, erythema, or edema. Able to perform full finger flexion, extension, abduction, adduction, finger cross, okay sign, and thumbs up without deficit. Able to make a closed fist. Sensation intact. Capillary refill is brisk. Radial pulse intact. Small puncture wound over the 2nd MCP with healing eschar tissue. No surround erythema or edema. Assessment & Plan Assessment & Plan (1) Puncture wound of right hand: Code(s): S61.431A - Puncture wound without foreign body of right hand, initial encounter Qualifiers: Encounter type: initial encounter Foreign body presence: without foreign body Qualified Code(s): S61.431A - Puncture wound without foreign body of right hand, initial encounter (2) Dog bite of hand: Code(s): S61.459A - Open bite of unspecified hand, initial encounter; W54.0XXA - Bitten by dog, initial encounter Plan Ms. Harris is a 68-year-old right hand dominant female who presents in the office today, as a new patient, for an evaluation of right hand pain. The patient presented to the ED on 05/29/2023 status post being bitten by her dog on 05/28/2023. X-rays of the right hand were obtained. She was prescribed amoxicillin-pot clavulanate 875-125 PO BID. She reports her wrist is feeling better with no discomfort. She denies numbness or tingling. She is still taking her antibiotic. She was instructed to complete the course of antibiotic she was prescribed in the ED. She was educated on signs of infection, which are as follows but not limited to erythema, edema, drainage, or warmth. If she is to experience any of these symptoms she is to contact the office immediately or present to the ED. Follow up will be PRN, or sooner if needed. Patient Instructions: Scribed for Yvonne Shannon PA-C by Daphnie Means, medical field representative, on 06/05/2023 at 9:48 am, EST. Quality Reporting (2019) Adult ([facility] 138/10/11/68) Smoking risk assessment performed?: Yes Patient Tobacco Use Status: Former Tobacco user Coding Level of Care Code New Pt Level 4 (80062) Diagnoses Puncture wound of right hand without foreign body, initial encounter S61.431A Encounter type: initial encounter Foreign body presence: without foreign body Dog bite of hand S61.459A; W54.0XXA
[2023-06-05 09:47] VITALS: BMI 28.3
== END 2023-06-05 10:00 | disposition home or self-care (01) ==
PROVIDERS: PCP Internal Medicine; Visit Provider Physician Assistant
DX: S61.431A Puncture wound without foreign body of right hand, initial encounter (principal); S61.451A Open bite of right hand, initial encounter; W54.0XXA Bitten by dog, initial encounter
CPT/HCPCS: 99204

== ENCOUNTER → 2023-06-05 09:43 | Outpatient (BNVA) | payer MEDICARE, SELFPAY | PROVIDERS: PCP Internal Medicine; Visit Provider Physician Assistant ==

== ENCOUNTER 2023-08-31 09:37 | Outpatient (AMB) | payer MEDICARE, SELFPAY ==
[2023-08-31 09:46] VITALS: BP 148/98; PULSE 82; O2SAT 99; BMI 28.5
--- NOTE | 2023-08-31 09:46 | MHC.PC.OV ---
Vital Signs 08/31/23 09:46 Height 4 ft 11 in Weight 141 lb 4 oz BMI 28.5 BP 148/98 H Blood Pressure Location Lt brachial Position Sitting Pulse 82 Pulse Source Pulse Oximeter Pulse Oximetry (%) 99 Oxygen Delivery Method Room Air Intake Visit Reasons: insomnia, tiredness Artificial Fly Tier Required: No Analytical Lab Technician: Not Required per policy Accompanied by: Self / Same As Patient Allergies No Known Allergies [No Known Allergies*] Allergy (Verified 08/31/23 09:47) Tobacco use date assessed: 08/31/23 Fall risk assessment: No Falls in past year Last assessed Fall Risk: 08/31/23 Dental Screening Dental Screen Date: 08/31/23 Did you have a dental visit in the last 12 months?: No Did you have a dental problem in the last 6 months where you did not have access to dental care?: No Was dental information given to patient?: Patient has dentist HPI insomnia, tiredness HPI Details 68-year-old overweight female smoker with hypertension impaired glucose tolerance test hypercholesterolemia generalized anxiety disorder COPD coming in for follow-up. Last seen in April 2023 review of the notes patient has seen Orthopedics May 2023 due to a dog bite on the hand showing a puncture wound was placed on amoxicillin lab. R hand is better.complains of weakness , no n no v coughing occ productive,no b.b sx. Patient has gone back to smoking and has been coughing specially at night. FOR[facility]LY [facility] Medical History Breast cancer screening by mammogram Allergic conjunctivitis and rhinitis Difficulty sleeping Lip numbness Numbness of fingers Osteoporosis Hypercholesterolemia Generalized anxiety disorder Tobacco dependence Pulmonary nodules COPD (chronic obstructive pulmonary disease) Personal history of nicotine dependence Vitamin B12 deficiency Diverticulosis Insomnia Osteoporosis Surgical History History of left breast biopsy History of colonoscopy Family History Daughter Hx of cervical cancer Father Family hx of prostate cancer Mother Myocardial infarct Maternal Aunt Pancreatic cancer, Onset Age: 55 Social History Household Members: Spouse Housing: Apartment Alcohol intake: current Alcohol intake frequency: holidays/special occasions only Patient Tobacco Use Status: Former Tobacco user Quit Date: 2 months ago Tobacco use type: Cigarette Cigarettes Per Day: 3 Years Smoked: 17 years e-Cigarette/Vaping Use: Never Used Second Hand Smoke Exposure: Yes service: No Current occupational status: retired Current occupational exposures/hazards: No Cognitive needs: No Hearing needs: No Vision needs: Yes Questionnaire PHQ-9 Over the last 2 weeks, how often have you been bothered by any of the following problems? 1. Little interest or pleasure in doing things: more than half the days 2. Feeling down, depressed, or hopeless: more than half the days 3. Trouble falling or staying asleep, or sleeping too much: nearly every day 4. Feeling tired or having little energy: nearly every day 5. Poor appetite or overeating: not at all 6. Feeling bad about yourself - or that you are a failure or have let yourself or your family down: not at all 7. Trouble concentrating on things, such as reading the newspaper or watching television: not at all 8. Moving or speaking so slowly that other people could have noticed. Or the opposite - being so fidgety or restless that you have been moving around a lot more than usual: not at all 9. Thoughts that you would be better off or of hurting yourself in some way: not at all Total score: 10 Depression Screening Interpretation: Positive Depression Screening Done: Yes 05221 - PHQ-9 Billing: Yes Source: Developed by Drs. Leobardo Campos, Charlene Stoll, Syed Burk and colleagues, with an educational guera from [employer]. Thrive Questionnaire Date Thrive assessed: 08/31/23 I am a: Patient What is your living situation today?: I have a steady place to live Within the past 12 months, did the food you bought not last and you didn't have the money to get more?: Never true Within the past 12 months, did you worry whether your food would run out before you got money to buy more?: Never true Do you have trouble paying for medicines?: No Do you have trouble getting transportation to medical appointments?: No Do you have trouble paying your heating and electricity bill?: No Do you have trouble taking care of your child, family member or friend?: No Do you have trouble with day-to-day activities such as bathing, preparing meals, shopping, managing finances, etc.?: No Are you currently unemployed and looking for a job?: No Are you interested in more education?: No Please select the resources that you would like help with: None AUDIT C Alcohol Use Questionnaire (AUDIT-C) 1. How often do you have a drink containing alcohol?: Monthly or less 2. How many drinks containing alcohol do you have on a typical day when you are drinking?: 1 or 2 3. How often do you have six or more drinks on one occasion?: Never Total Score: 1 MAN-7 AMB Questionnaire MAN-7 Date MAN - 7 assessed: 08/31/23 Feeling nervous, anxious, or on edge: 0 = Not at all Not being able to stop or control worryin = Not at all Worrying too much about different things: 0 = Not at all Trouble relaxin = Not at all Being so restless that it is hard to sit still: 0 = Not at all Becoming easily annoyed or irritable: 0 = Not at all Feeling afraid as if something awful might happen: 0 = Not at all Total MAN-7 score (0-4 normal; 5-9 mild; 10-14 moderate; 15-21 severe): 0 Source: Developed by Drs. Leobardo Campos, Charlene Stoll, Syed Burk and colleagues, with an educational guera from [employer]. Physical exam (Primary Care) Vital Signs: Last Vital Signs Pulse 82 08/31/23 09:46 BP 148/98 H 08/31/23 09:46 Pulse Ox 99 08/31/23 09:46 Oxygen Delivery Method Room Air 08/31/23 09:46 BMI result Body Mass Index 28.5 Tobacco/Smoking Status: Tobacco use Status Tobacco use date assessed 08/31/23 08/31/23 09:48 Patient Tobacco Use Status Former Tobacco user 08/31/23 09:48 Tobacco use type Cigarette 08/31/23 09:48 e-Cigarette/Vaping Use Never Used 08/31/23 09:48 PHQ-9: PHQ-9 Score PHQ-9: Total score 10 08/31/23 10:18 Depression Screening Interpretation: Positive Thrive Assessment: Date of Thrive Assessment Date Thrive assessed 08/31/23 08/31/23 09:48 Const General: alert; No acute distress Eyes Conjunctivae: conjunctivae normal Resp Other: Decreased breath sounds with basal crackles Cardio Rate: regular rate Rhythm: regular rhythm GI Inspection: Yes normal to inspection Extrem General: Yes normal to inspection and No edema Assessment and Plan Assessment & Plan (1) Puncture wound of right hand: Code(s): S61.431A - Puncture wound without foreign body of right hand, initial encounter Qualifiers: Encounter type: initial encounter Foreign body presence: without foreign body Qualified Code(s): S61.431A - Puncture wound without foreign body of right hand, initial encounter Plan: Patient was seen by ortho and had antibiotics given. Resolved (2) Breast cancer screening by mammogram: Code(s): Z12.31 - Encounter for screening mammogram for malignant neoplasm of breast Plan: Patient is reminded about mammogram (3) Tobacco abuse: Comment: still smoking 08/2023 Code(s): Z72.0 - Tobacco use Plan: Patient has been enrolled in lung cancer screening program reminded about the CT scan that needs to be done. Patient has gone back to smoking and had a long discussion on the need to stop smoking (4) Hypertension: Code(s): I10 - Essential (primary) hypertension Plan: Continue with blood pressure medication. Decrease salt intake and exercise patient on lisinopril 5 mg once a day. Advised to monitor blood pressure at home and if the blood pressure continues to be elevated will need to adjust medication (5) Impaired glucose tolerance: Code(s): R73.02 - Impaired glucose tolerance (oral) Plan: Decrease the amount of carbohydrate intake, pasta, bread, rice and potatoes are all sugar and that is aside from all the sweet stuff, remember that fruits are good but they are Sweet also. (6) Hypercholesterolemia: Code(s): E78.00 - Pure hypercholesterolemia, unspecified Plan: Avoid fried foods, chicken skin, eggs, butter margarine, pastries and meat. Be it pork or beef they have a lot of cholesterol LDL goal of less than 130 and triglyceride of less than 150 presently diet controlled only (7) Pulmonary nodules: Comment: March 2021 CT scan, June 2022 Code(s): R91.8 - Other nonspecific abnormal finding of lung field Plan: Reminded about the CT scan that needs to be done for lung cancer screening (8) Generalized anxiety disorder: Code(s): F41.1 - Generalized anxiety disorder Plan: Continue with therapy (9) COPD (chronic obstructive pulmonary disease): Comment: still smoking 4 a day Code(s): J44.9 - Chronic obstructive pulmonary disease, unspecified Qualifiers: COPD type: chronic bronchitis Chronic bronchitis type: mixed simple and mucopurulent Qualified Code(s): J41.8 - Mixed simple and mucopurulent chronic bronchitis Plan: Albuterol inhaler as needed. Had a long discussion with the patient on the need to stop smoking. (10) Osteoporosis: Comment: (Bone Dexa - T-Score -2.7 femoral - 05/30/2019) September 2021 Code(s): M81.0 - Age-related osteoporosis without current pathological fracture Plan: Reminded about bone density test for September (11) Knee pain, left: Code(s): M25.562 - Pain in left knee Plan: X-ray requested discussed about most often problem is osteoarthritis. (12) Cough: Code(s): R05.9 - Cough, unspecified Plan: Chest x-ray requested concern about COPD exacerbation Zithromax prescription sent inhalers sent. Orders: Orders XR knee LT 2V Today M25.562 - Pain in left knee XR chest 2V Today J41.8 - Mixed simple and mucopurulent chronic bronchitis Free T4 (Free Thyroxine) Today J41.8 - Mixed simple and mucopurulent chronic bronchitis Thyroid Stimulating Hormone Today J41.8 - Mixed simple and mucopurulent chronic bronchitis XR DEXA axial skeleton 1 Month M81.0 - Age-related osteoporosis without current pathological fracture Complete Blood Count Auto Diff Today J41.8 - Mixed simple and mucopurulent chronic bronchitis Comprehensive Met. Panel Today J41.8 - Mixed simple and mucopurulent chronic bronchitis Magnesium Today J41.8 - Mixed simple and mucopurulent chronic bronchitis SARS-CoV2/FLU/RSV Today J41.8 - Mixed simple and mucopurulent chronic bronchitis Medications: New diclofenac sodium 1% (Voltaren Arthritis Pain) apply to single knee, ankle, foot; for foot includes sole/toes/top of foot 4 grams topical QID 100 grams 3RF M25.562 - Pain in left knee azithromycin (Zithromax) For 250 mg dose pack: take 500 mg today (day 1), then 250 mg for 4 days (days 2-5) PO 6 tabs 0RF J41.8 - Mixed simple and mucopurulent chronic bronchitis nicotine 1 patch transdermal DAILY 28 ea 0RF Z72.0 - Tobacco use nicotine (Nicoderm CQ) 1 patch transdermal Q24H 28 ea 1RF Z72.0 - Tobacco use Refilled albuterol sulfate 90 mcg/actuation 2 inhalations inhalation Q6H 30 days PRN 18 grams 0RF shortness of breath or wheezing J44.9 - Chronic obstructive pulmonary disease, unspecified cholecalciferol (vitamin D3) (Vitamin D3) 50 mcg PO DAILY 90 caps 0RF M81.0 - Age-related osteoporosis without current pathological fracture [id number] 200-62.5-25 mcg (Trelegy Ellipta) 1 inh inhalation DAILY 60 ea 3RF J41.8 - Mixed simple and mucopurulent chronic bronchitis Coding Level of Care Code Est Pt Level 4 (94921) Diagnoses Puncture wound of right hand without foreign body, initial encounter S61.431A Encounter type: initial encounter Foreign body presence: without foreign body Breast cancer screening by mammogram Z12.31 Tobacco abuse Z72.0 Hypertension I10 Impaired glucose tolerance R73.02 Hypercholesterolemia E78.00 Pulmonary nodules R91.8 Generalized anxiety disorder F41.1 Mixed simple and mucopurulent chronic bronchitis J41.8 COPD type: chronic bronchitis Chronic bronchitis type: mixed simple and mucopurulent Osteoporosis M81.0 Knee pain, left M25.562 Cough R05.9
== END 2023-08-31 10:45 | disposition home or self-care (01) ==
PROVIDERS: PCP Internal Medicine; Visit Provider Internal Medicine
DX: S61.431A Puncture wound without foreign body of right hand, initial encounter (principal); J41.8 Mixed simple and mucopurulent chronic bronchitis; Z12.31 Encounter for screening mammogram for malignant neoplasm of breast; Z72.0 Tobacco use; I10 Essential (primary) hypertension; R73.02 Impaired glucose tolerance (oral); E78.00 Pure hypercholesterolemia, unspecified; R91.8 Other nonspecific abnormal finding of lung field; F41.1 Generalized anxiety disorder; M81.0 Age-related osteoporosis without current pathological fracture; M25.562 Pain in left knee; R05.9 Cough, unspecified
CPT/HCPCS: 99214

== ENCOUNTER 2023-08-31 11:00 | Outpatient (REF) | payer MEDICARE, SELFPAY ==
--- NOTE | ~2023-08-31 | XR_ITS ---
EXAMINATION: XR KNEE, LEFT CLINICAL INFORMATION: Left knee pain COMPARISON: None available. TECHNIQUE: Four views of the left knee. FINDINGS: No fracture, dislocation or joint effusion. Mild patellar spurring. Mild medial knee joint narrowing. Vascular calcifications. XR/XR knee LT 2V IMPRESSION: No acute bony pathology
--- NOTE | ~2023-08-31 | XR_ITS ---
EXAMINATION: XR CHEST CLINICAL INFORMATION: Mixed simple and mucopurulent chronic bronchitis COMPARISON: 01/16/2023 TECHNIQUE: 2 views of the chest were obtained. FINDINGS: Heart, mediastinum and vascularity within normal limits. Mild diffusely increased interstitial markings. No vascular congestion, consolidations or effusions. Bony structures are intact. XR/XR chest 2V IMPRESSION: No acute cardiopulmonary disease or interval change.
[2023-08-31 11:19] LABS: MANUAL DIFF FLAG NO
[2023-08-31 12:08] LABS: Influenza A PCR NEGATIVE (Negative); Influenza B PCR NEGATIVE (Negative); Resp Syncy Virus RNA Qual PCR NEGATIVE (Negative); SARS COV2 PCR INHOUSE NEGATIVE (Negative)
[2023-08-31 13:32] LABS: Basophils Absolute Auto 0.1 X10*3/uL (0.0-0.2); Basophils Percent Auto 0.6 % (0-2); Eosinophils Absolute Auto 0.7 X10*3/uL (0.0-0.4); Hematocrit 40.8 % (37.0-47.0); Hemoglobin 13.2 g/dl (12.0-16.0); Imm Gran Abs Auto 0.02 X10*3/uL (0.00-0.03); Imm Gran Pct Auto 0.2 % (0.0-0.4); Lymphocytes Absolute Auto 4.5 X10*3/uL (1.2-4.9); Lymphocytes Percent Auto 46.4 % (20-40); Mean Corpuscular HGB Conc 32.4 g/dl (31.0-35.0); Mean Corpuscular Hemoglobin 30.8 pg (27.0-33.0); Mean Corpuscular Volume 95.1 fL (80.0-98.0); Mean Platelet Volume 12.2 fL (9.4-12.3); Monocytes Absolute Auto 0.5 X10*3/uL (0.1-1.2); Monocytes Percent Auto 5.4 % (2-11); Neutrophils Absolute Auto 3.9 x10*3/uL (2.0-8.3); Neutrophils Percent Auto 40.4 % (45-73); Platelet Count 274 X10*3/uL (160-400); Red Blood Count 4.29 X10*6/uL (4.20-5.50); Red Cell Distribution Width 14.6 % (11.0-16.0); White Blood Count 9.6 X10*3/uL (4.8-10.8)
[2023-08-31 14:17] LABS: Estimated Average Glucose 117 mg/dL; Hemoglobin A1c % 5.7 % (<6.0)
[2023-08-31 14:36] LABS: Alanine Aminotransferase 12 U/L (0-31); Albumin Level 4.2 g/dL (3.5-5.0); Alkaline Phosphatase 105 U/L (39-117); Anion Gap 12 (12-20); Aspartate Amino Transferase 17 U/L (5-31); Bilirubin Total 0.2 mg/dL (0.0-1.0); Blood Urea Nitrogen 10 mg/dL (9-16); Calcium 9.3 mg/dL (8.4-10.2); Carbon Dioxide 27 mmol/L (22-29); Chloride 105 mmol/L (96-108); Estimated Glomerular Filt Rate > 60; Glucose Random 96 mg/dL (60-115); Magnesium 1.9 mg/dL (1.6-2.6); Sodium 140 mmol/L (135-145); Total Protein 7.8 g/dL (6.5-8.0)
[2023-08-31 14:55] LABS: Free T4 (Free Thyroxine) 0.84 ng/dL (0.71-1.85); Thyroid Stimulating Hormone 0.84 uIU/mL (0.32-4.0)
== END 2023-08-31 11:01 | disposition home or self-care (01) ==
LOC: HO.XRAY 11:00
PROVIDERS: PCP Internal Medicine; Visit Provider Internal Medicine
DX: I10 Essential (primary) hypertension (principal); J41.8 Mixed simple and mucopurulent chronic bronchitis; R73.02 Impaired glucose tolerance (oral); M25.562 Pain in left knee; Z11.52 Encounter for screening for COVID-19; Z20.828 Contact with and (suspected) exposure to other viral communicable diseases
CPT/HCPCS: 0241U; 71046; 73560; 80053; 83036; 83735; 84439; 84443; 85025

== ENCOUNTER 2023-10-15 09:05 | Outpatient (REF) | payer MEDICARE, SELFPAY ==
--- NOTE | ~2023-10-15 | MM_ITS ---
EXAMINATION: MM SCREENING DIGITAL BREAST TOMOSYNTHESIS, BILATERAL CLINICAL INFORMATION: Screening. Asymptomatic. COMPARISON: Mammography: This study is compared with prior exams dating back to 2019. TECHNIQUE: Digital breast tomosynthesis is performed in both the craniocaudal and mediolateral oblique views along with computer-aided detection (CAD). Synthesized 2D images are generated from the tomosynthesis. FINDINGS: The breasts are heterogeneously dense, which may obscure small masses (ACR BI-RADS breast composition Category c). There are no significant masses, abnormal calcifications, or other abnormalities. There is a coarse, benign calcifications superior aspect of each breast. There is a tissue marker in the 12:00 region of the left breast from prior benign percutaneous biopsy. MM/MM tomosynthesis screening BI IMPRESSION: No mammographic evidence of malignancy. ASSESSMENT: BI-RADS BI-RADS 2 - Benign Findings RECOMMENDATION: Routine annual mammography screening. 1 year F/U This examination should not preclude the clinical evaluation of a suspicious palpable abnormality. This patient's information was entered into a reminder system with a target due date for their next mammogram.
== END 2023-10-15 09:06 | disposition home or self-care (01) ==
LOC: HO.MAMMO 09:05
PROVIDERS: Visit Provider Internal Medicine
DX: Z12.31 Encounter for screening mammogram for malignant neoplasm of breast (principal)
CPT/HCPCS: 77063; 77067

== ENCOUNTER → 2023-10-15 09:15 | Outpatient (BNV) | payer MEDICARE, SELFPAY | PROVIDERS: Visit Provider Radiology Diagnostic Radiology | DX: Z12.31 Encounter for screening mammogram for malignant neoplasm of breast (principal) | CPT/HCPCS: 77063; 77067 ==

== ENCOUNTER 2023-12-03 13:26 | Outpatient (AMB) | payer MEDICARE, SELFPAY ==
--- NOTE | 2023-12-03 13:27 | MHC.PC.OV ---
Vital Signs 12/03/23 13:28 Height 4 ft 11 in Weight 141 lb BMI 28.5 BP 138/88 Blood Pressure Location Lt brachial Position Sitting Pulse 87 Pulse Source Pulse Oximeter Pulse Oximetry (%) 94 Oxygen Delivery Method Room Air Intake Visit Reasons: COPD Allergies No Known Allergies [No Known Allergies*] Allergy (Verified 12/03/23 13:28) Medication List - Last Reconciled 12/03/23 by Sofía Gallo MD albuterol sulfate 90 mcg/actuation 2 inhalations inhalation Q6H PRN 30 days alendronate 70 mg PO QWEEK benzonatate 200 mg PO BID-TID PRN cetirizine (Zyrtec) 10 mg PO DAILY cholecalciferol (vitamin D3) (Vitamin D3) 50 mcg PO DAILY diclofenac sodium 1% (Voltaren Arthritis Pain) 4 grams topical QID [id number] 200-62.5-25 mcg (Trelegy Ellipta) 1 inh inhalation DAILY hydroxyzine HCl 25 mg PO BEDTIME PRN lisinopril 5 mg PO DAILY mecobalamin (vitamin B12) 1,000 mcg sublingual DAILY 30 days melatonin 3 mg PO BEDTIME PRN nicotine 1 patch transdermal DAILY nicotine (Nicoderm CQ) 1 patch transdermal Q24H sertraline 50 mg PO DAILY zolpidem 5 mg PO BEDTIME Tobacco use date assessed: 12/03/23 Fall risk assessment: No Falls in past year Last assessed Fall Risk: 12/03/23 Dental Screening Dental Screen Date: 12/03/23 Did you have a dental visit in the last 12 months?: Yes Did you have a dental problem in the last 6 months where you did not have access to dental care?: No Was dental information given to patient?: Patient has dentist HPI COPD HPI Details 68-year-old overweight female smoker with hypertension impaired glucose tolerance hypercholesterolemia generalized anxiety disorder COPD coming in for follow-up. Last seen in August 2023. Mammograms up-to-date, bone density is due. And colonoscopy is up-to-date 2019.. still smoking 3 cigarette a day PFSH Medical History Breast cancer screening by mammogram Allergic conjunctivitis and rhinitis Difficulty sleeping Lip numbness Numbness of fingers Osteoporosis Hypercholesterolemia Generalized anxiety disorder Tobacco dependence Pulmonary nodules COPD (chronic obstructive pulmonary disease) Personal history of nicotine dependence Vitamin B12 deficiency Diverticulosis Insomnia Osteoporosis Surgical History History of left breast biopsy History of colonoscopy Family History Daughter Hx of cervical cancer Father Family hx of prostate cancer Mother Myocardial infarct Maternal Aunt Pancreatic cancer, Onset Age: 55 Social History Household Members: Spouse Housing: Apartment Alcohol intake: current Alcohol intake frequency: holidays/special occasions only Patient Tobacco Use Status: Former Tobacco user Quit Date: 2 months ago Tobacco use type: Cigarette Cigarettes Per Day: 3 Years Smoked: 17 years e-Cigarette/Vaping Use: Never Used Second Hand Smoke Exposure: Yes service: No Current occupational status: retired Current occupational exposures/hazards: No Cognitive needs: No Hearing needs: No Vision needs: Yes Questionnaire PHQ-9 Over the last 2 weeks, how often have you been bothered by any of the following problems? 1. Little interest or pleasure in doing things: more than half the days 2. Feeling down, depressed, or hopeless: more than half the days 3. Trouble falling or staying asleep, or sleeping too much: nearly every day 4. Feeling tired or having little energy: nearly every day 5. Poor appetite or overeating: not at all 6. Feeling bad about yourself - or that you are a failure or have let yourself or your family down: not at all 7. Trouble concentrating on things, such as reading the newspaper or watching television: not at all 8. Moving or speaking so slowly that other people could have noticed. Or the opposite - being so fidgety or restless that you have been moving around a lot more than usual: not at all 9. Thoughts that you would be better off or of hurting yourself in some way: not at all Total score: 10 Depression Screening Interpretation: Positive Depression Screening Done: Yes 71474 - PHQ-9 Billing: Yes Source: Developed by Drs. Leobardo Campos, Charlene Stoll, Syed Burk and colleagues, with an educational guera from [employer]. Thrive Questionnaire Date Thrive assessed: 12/03/23 I am a: Patient What is your living situation today?: I have a steady place to live Within the past 12 months, did the food you bought not last and you didn't have the money to get more?: Never true Within the past 12 months, did you worry whether your food would run out before you got money to buy more?: Never true Do you have trouble paying for medicines?: No Do you have trouble getting transportation to medical appointments?: No Do you have trouble paying your heating and electricity bill?: No Do you have trouble taking care of your child, family member or friend?: No Do you have trouble with day-to-day activities such as bathing, preparing meals, shopping, managing finances, etc.?: No Are you currently unemployed and looking for a job?: No Are you interested in more education?: No Please select the resources that you would like help with: None Currently or been in a relationship where the following occur: no concerns reported THRIVE Score: 0 AUDIT C Alcohol Use Questionnaire (AUDIT-C) 1. How often do you have a drink containing alcohol?: Monthly or less 2. How many drinks containing alcohol do you have on a typical day when you are drinking?: 1 or 2 3. How often do you have six or more drinks on one occasion?: Never Total Score: 1 MAN-7 AMB Questionnaire MAN-7 Date MAN - 7 assessed: 12/03/23 Feeling nervous, anxious, or on edge: 0 = Not at all Not being able to stop or control worryin = Not at all Worrying too much about different things: 0 = Not at all Trouble relaxin = Not at all Being so restless that it is hard to sit still: 0 = Not at all Becoming easily annoyed or irritable: 0 = Not at all Feeling afraid as if something awful might happen: 0 = Not at all Total MAN-7 score (0-4 normal; 5-9 mild; 10-14 moderate; 15-21 severe): 0 Source: Developed by Drs. Leobardo Campos, Charlene Stoll, Syed Burk and colleagues, with an educational guera from [employer]. Physical exam (Primary Care) Vital Signs: Last Vital Signs Pulse 87 12/03/23 13:28 BP 138/88 12/03/23 13:28 Pulse Ox 94 12/03/23 13:28 Oxygen Delivery Method Room Air 12/03/23 13:28 BMI result Body Mass Index 28.5 Tobacco/Smoking Status: Tobacco use Status Tobacco use date assessed 12/03/23 12/03/23 13:33 Patient Tobacco Use Status Former Tobacco user 12/03/23 13:33 Tobacco use type Cigarette 12/03/23 13:33 e-Cigarette/Vaping Use Never Used 12/03/23 13:33 PHQ-9: PHQ-9 Score PHQ-9: Total score 10 12/03/23 13:33 Depression Screening Interpretation: Positive Thrive Assessment: Date of Thrive Assessment Date Thrive assessed 12/03/23 12/03/23 13:33 Currently or been in a relationship where the following occur: no concerns reported Const General: alert; No acute distress Eyes Conjunctivae: conjunctivae normal Resp Auscultation: clear to auscultation bilaterally Cardio Rate: regular rate Rhythm: regular rhythm GI Inspection: Yes normal to inspection Extrem General: Yes normal to inspection and No edema Assessment and Plan Assessment & Plan (1) Osteoporosis: Comment: (Bone Dexa - T-Score -2.7 femoral - 05/30/2019) September 2021 Code(s): M81.0 - Age-related osteoporosis without current pathological fracture Plan: Patient is reminded of bone density to be done this year. On alendronate once a week. (2) COPD (chronic obstructive pulmonary disease): Comment: still smoking 4 a day Code(s): J44.9 - Chronic obstructive pulmonary disease, unspecified Qualifiers: COPD type: chronic bronchitis Chronic bronchitis type: mixed simple and mucopurulent Qualified Code(s): J41.8 - Mixed simple and mucopurulent chronic bronchitis Plan: Patient was advised strongly to stop smoking. Continue with albuterol as well as Trelegy (3) Hypercholesterolemia: Code(s): E78.00 - Pure hypercholesterolemia, unspecified Plan: Avoid fried foods, chicken skin, eggs, butter margarine, pastries and meat. Be it pork or beef they have a lot of cholesterol LDL goal of less than 130 and triglyceride of less than 150 last blood work was done in December 2022. (4) Generalized anxiety disorder: Code(s): F41.1 - Generalized anxiety disorder Plan: Continue with sertraline (5) Impaired glucose tolerance: Code(s): R73.02 - Impaired glucose tolerance (oral) Plan: Decrease the amount of carbohydrate intake, pasta, bread, rice and potatoes are all sugar and that is aside from all the sweet stuff, remember that fruits are good but they are Sweet also. August 2023 last blood work A1c (6) Hypertension: Code(s): I10 - Essential (primary) hypertension Plan: Continue with blood pressure medication. Decrease salt intake and exercise takes lisinopril 5 mg once a day (7) Tobacco abuse: Comment: still smoking 08/2023 Code(s): Z72.0 - Tobacco use Plan: Patient is strongly advised to stop smoking summation point. Reminded about the CT scan Orders: Orders Comprehensive Met. Panel Today E78.00 - Pure hypercholesterolemia, unspecified Lipid Panel Today E78.00 - Pure hypercholesterolemia, unspecified Vitamin B12 and Folate Today E78.00 - Pure hypercholesterolemia, unspecified Hemoglobin A1c Today R73.02 - Impaired glucose tolerance (oral) Complete Blood Count Auto Diff Today E78.00 - Pure hypercholesterolemia, unspecified Free T4 (Free Thyroxine) Today E78.00 - Pure hypercholesterolemia, unspecified Thyroid Stimulating Hormone Today E78.00 - Pure hypercholesterolemia, unspecified Vitamin D 25-OH Total Today E78.00 - Pure hypercholesterolemia, unspecified Medications: New benzonatate 200 mg PO BID-TID PRN 30 caps 0RF cough J41.8 - Mixed simple and mucopurulent chronic bronchitis Refilled albuterol sulfate 90 mcg/actuation 2 inhalations inhalation Q6H 30 days PRN 18 grams 0RF shortness of breath or wheezing J44.9 - Chronic obstructive pulmonary disease, unspecified Coding Level of Care Code Est Pt Level 4 (49344) Diagnoses Osteoporosis M81.0 Mixed simple and mucopurulent chronic bronchitis J41.8 COPD type: chronic bronchitis Chronic bronchitis type: mixed simple and mucopurulent Hypercholesterolemia E78.00 Generalized anxiety disorder F41.1 Impaired glucose tolerance R73.02 Hypertension I10 Tobacco abuse Z72.0
[2023-12-03 13:28] VITALS: BP 138/88; PULSE 87; O2SAT 94; BMI 28.5
== END 2023-12-03 14:31 | disposition home or self-care (01) ==
PROVIDERS: PCP Internal Medicine; Visit Provider Internal Medicine
DX: M81.0 Age-related osteoporosis without current pathological fracture (principal); J41.8 Mixed simple and mucopurulent chronic bronchitis; E78.00 Pure hypercholesterolemia, unspecified; F41.1 Generalized anxiety disorder; R73.02 Impaired glucose tolerance (oral); I10 Essential (primary) hypertension; Z72.0 Tobacco use
CPT/HCPCS: 99214

== ENCOUNTER 2024-04-15 14:35 | Outpatient (AMB) | payer MEDICARE, SELFPAY ==
[2024-04-15 14:49] VITALS: BP 138/88; PULSE 92; O2SAT 94; BMI 27.5
--- NOTE | 2024-04-15 14:49 | A.OFFPC_ITS ---
Vital Signs 04/15/24 14:49 Height 4 ft 11 in Weight 136 lb BMI 27.5 BP 138/88 Blood Pressure Location Lt brachial Position Sitting Pulse 92 Pulse Source Pulse Oximeter Pulse Oximetry (%) 94 Oxygen Delivery Method Room Air Intake Visit Reasons: COPD, Allergies No Known Allergies [No Known Allergies*] Allergy (Verified 04/15/24 14:49) Tobacco use date assessed: 12/03/23 Fall risk assessment: No Falls in past year Last assessed Fall Risk: 04/15/24 Dental Screening Dental Screen Date: 12/03/23 HPI COPD, HPI Details 69-year-old overweight female smoker wit h a history of osteoporosis COPD hypercholesterolemia generalized anxiety disorder impaired glucose tolerance hypertension coming in for follow-up. Last seen in 12/08/2023. Up-to-date with mammogram and colonoscopy. [facility] Medical History Breast cancer screening by mammogram Allergic conjunctivitis and rhinitis Difficulty sleeping Lip numbness Numbness of fingers Osteoporosis Hypercholesterolemia Generalized anxiety disorder Tobacco dependence Pulmonary nodules COPD (chronic obstructive pulmonary disease) Personal history of nicotine dependence Vitamin B12 deficiency Diverticulosis Insomnia Osteoporosis Surgical History History of left breast biopsy History of colonoscopy Family History Daughter Hx of cervical cancer Father Family hx of prostate cancer Mother Myocardial infarct Maternal Aunt Pancreatic cancer, Onset Age: 55 Social History Household Members: Spouse Housing: Apartment Alcohol intake: current Alcohol intake frequency: holidays/special occasions only Patient Tobacco Use Status: Former Tobacco user Tobacco use type: Cigarette Cigarettes Per Day: 3 Years Smoked: 17 years e-Cigarette/Vaping Use: Never Used Second Hand Smoke Exposure: Yes service: No Current occupational status: retired Current occupational exposures/hazards: No Cognitive needs: No Hearing needs: No Vision needs: Yes Questionnaire PHQ-9 Over the last 2 weeks, how often have you been bothered by any of the following problems? 1. Little interest or pleasure in doing things: more than half the days 2. Feeling down, depressed, or hopeless: more than half the days 3. Trouble falling or staying asleep, or sleeping too much: nearly every day 4. Feeling tired or having little energy: nearly every day 5. Poor appetite or overeating: not at all 6. Feeling bad about yourself - or that you are a failure or have let yourself or your family down: not at all 7. Trouble concentrating on things, such as reading the newspaper or watching television: not at all 8. Moving or speaking so slowly that other people could have noticed. Or the opposite - being so fidgety or restless that you have been moving around a lot more than usual: not at all 9. Thoughts that you would be better off or of hurting yourself in some way: not at all Total score: 10 Depression Screening Interpretation: Positive Depression Screening Done: Yes [id number] - PHQ-9 Billing: Yes Source: Developed by Drs. Leobardo Campos, Charlene Stoll, Syed Burk and colleagues, with an educational guera from [employer]. Thrive Questionnaire Date Thrive assessed: 12/03/23 AUDIT C Alcohol Use Questionnaire (AUDIT-C) 1. How often do you have a drink containing alcohol?: Monthly or less 2. How many drinks containing alcohol do you have on a typical day when you are drinking?: 1 or 2 3. How often do you have six or more drinks on one occasion?: Never Total Score: 1 MAN-7 AMB Questionnaire MAN-7 Date MAN - 7 assessed: 12/03/23 Source: Developed by Drs. Leobardo Campos, Charlene Stoll, Syed Burk and colleagues, with an educational guera from [employer]. Physical exam (Primary Care) Vital Signs: Last Vital Signs Pulse 92 04/15/24 14:49 BP 138/88 04/15/24 14:49 Pulse Ox 94 04/15/24 14:49 Oxygen Delivery Method Room Air 04/15/24 14:49 BMI result Body Mass Index 27.5 Tobacco/Smoking Status: Tobacco use Status Tobacco use date assessed 12/03/23 04/15/24 14:52 Patient Tobacco Use Status Former Tobacco user 04/15/24 14:52 Tobacco use type Cigarette 04/15/24 14:52 e-Cigarette/Vaping Use Never Used 04/15/24 14:52 PHQ-9: PHQ-9 Score PHQ-9: Total score 10 04/15/24 15:06 Depression Screening Interpretation: Positive Thrive Assessment: Date of Thrive Assessment Date Thrive assessed 12/03/23 04/15/24 14:52 Const General: alert; No acute distress Eyes Conjunctivae: conjunctivae normal Resp Auscultation: clear to auscultation bilaterally Cardio Rate: regular rate Rhythm: regular rhythm GI Inspection: Yes normal to inspection Extrem General: Yes normal to inspection and No edema Assessment and Plan Assessment & Plan (1) Tobacco abuse: Comment: still smoking 08/2023 Code(s): Z72.0 - Tobacco use Plan: Patient is strongly advised to stop smoking! (2) Hypertension: Code(s): I10 - Essential (primary) hypertension Plan: Continue with blood pressure medication. Decrease salt intake and exercise patient takes lisinopril 5 mg once a day. change BP med to losartan on account of cough (3) Impaired glucose tolerance: Code(s): R73.02 - Impaired glucose tolerance (oral) Plan: Decrease the amount of carbohydrate intake, pasta, bread, rice and potatoes are all sugar and that is aside from all the sweet stuff, remember that fruits are g ood but they are Sweet also. (4) Hypercholesterolemia: Code(s): E78.00 - Pure hypercholesterolemia, unspecified Plan: Avoid fried foods, chicken skin, eggs, butter margarine, pastries and meat. Be it pork or beef they have a lot of cholesterol LDL goal of less than 130 and triglyceride of less than 150 patient was advised to get blood work (5) COPD (chronic obstructive pulmonary disease): Comment: still smoking 4 a day Code(s): J44.9 - Chronic obstructive pulmonary disease, unspecified Qualifiers: COPD type: chronic bronchitis Chronic bronchitis type: mixed simple and mucopurulent Qualified Code(s): J41.8 - Mixed simple and mucopurulent chronic bronchitis Plan: On albuterol and Trelegy. Patient is strongly advised to stop smoking. (6) Osteoporosis: Comment: (Bone Dexa - T-Score -2.7 femoral - 05/30/2019) September 2021 Code(s): M81.0 - Age-related osteoporosis without current pathological fracture Plan: Reminded about bone density patient is on alendronate (7) Cough: Code(s): R05.9 - Cough, unspecified Plan: chest xray done and stopped lisinopril Orders: Orders XR DEXA axial skeleton Today M81.0 - Age-related osteoporosis without current pathological fracture XR chest 2V Today R05.9 - Cough, unspecified Referrals Lung Cancer Screening Referral Z72.0 - Tobacco use Medications: New losartan 50 mg PO DAILY 30 tabs 3RF I10 - Essential (primary) hypertension Discontinued lisinopril Discontinued Reason: Doctor's Order 5 mg PO DAILY 90 tabs 2RF I10 - Essential (primary) hypertension Coding Level of Care Code Est Pt Level 4 (33923) Diagnoses Tobacco abuse Z72.0 Hypertension I10 Impaired glucose tolerance R73.02 Hypercholesterolemia E78.00 Mixed simple and mucopurulent chronic bronchitis J41.8 COPD type: chronic bronchitis Chronic bronchitis type: mixed simple and mucopurulent Osteoporosis M81.0 Cough R05.9
== END 2024-04-15 15:19 | disposition home or self-care (01) ==
PROVIDERS: Visit Provider Internal Medicine
DX: Z72.0 Tobacco use (principal); I10 Essential (primary) hypertension; R73.02 Impaired glucose tolerance (oral); E78.00 Pure hypercholesterolemia, unspecified; J41.8 Mixed simple and mucopurulent chronic bronchitis; M81.0 Age-related osteoporosis without current pathological fracture; R05.9 Cough, unspecified
CPT/HCPCS: 99214

== ENCOUNTER 2024-04-15 15:25 | Outpatient (REF) | payer MEDICARE, SELFPAY ==
--- NOTE | ~2024-04-15 | XR_ITS ---
EXAMINATION: XR CHEST CLINICAL INFORMATION: Cough COMPARISON: Prior chest August 2023 TECHNIQUE: 2 views of the chest were obtained. FINDINGS: No significant abnormality is noted involving the heart, lungs, mediastinum, bony thorax or soft tissues. XR/XR chest 2V IMPRESSION: Unremarkable examination. Electronically signed by: Jakob Tinsley MD 05/06/2024 07:34 AM EDT RP
== END 2024-04-15 15:26 | disposition home or self-care (01) ==
LOC: HO.XRAY 15:25
PROVIDERS: PCP Internal Medicine; Visit Provider Internal Medicine
DX: R05.9 Cough, unspecified (principal)
CPT/HCPCS: 71046

== ENCOUNTER 2024-04-28 11:50 | Outpatient (AMB) | payer MEDICARE, SELFPAY ==
--- NOTE | 2024-04-28 11:51 | A.OFFPC_ITS ---
Intake Visit Reasons: COVID Pos. Ad Compositor Required: No Allergies No Known Allergies [No Known Allergies*] Allergy (Verified 04/28/24 11:51) Tobacco use date assessed: 12/03/23 Fall risk assessment: No Falls in past year Last assessed Fall Risk: 04/28/24 Dental Screening Dental Screen Date: 12/03/23 HPI COVID Pos. HPI Details 69-year-old female smoker with hypertens ion hypercholesterolemia COPD impaired glucose tolerance calling in because of COVID-19 infection.lighheaded runny, no fevers, no cough , no sore thrat, , mild sob PFSH Medical History Breast cancer screening by mammogram Allergic conjunctivitis and rhinitis Difficulty sleeping Lip numbness Numbness of fingers Osteoporosis Hypercholesterolemia Generalized anxiety disorder Tobacco dependence Pulmonary nodules COPD (chronic obstructive pulmonary disease) Personal history of nicotine dependence Vitamin B12 deficiency Diverticulosis Insomnia Osteoporosis Surgical History History of left breast biopsy History of colonoscopy Family History Daughter Hx of cervical cancer Father Family hx of prostate cancer Mother Myocardial infarct Maternal Aunt Pancreatic cancer, Onset Age: 55 Social History Household Members: Spouse Housing: Apartment Alcohol intake: current Alcohol intake frequency: holidays/special occasions only Patient Tobacco Use Status: Former Tobacco user Tobacco use type: Cigarette Cigarettes Per Day: 3 Years Smoked: 17 years e-Cigarette/Vaping Use: Never Used Second Hand Smoke Exposure: Yes service: No Current occupational status: retired Current occupational exposures/hazards: No Cognitive needs: No Hearing needs: No Vision needs: Yes Questionnaire Thrive Questionnaire Date Thrive assessed: 12/03/23 MAN-7 AMB Questionnaire MAN-7 Date MAN - 7 assessed: 12/03/23 Source: Developed by Drs. Leobardo Campos, Charlene Stoll, Syed Burk and colleagues, with an educational guera from [employer]. Physical exam (Primary Care) Tobacco/Smoking Status: Tobacco use Status Tobacco use date assessed 12/03/23 04/28/24 11:52 Patient Tobacco Use Status Former Tobacco user 04/28/24 11:52 Tobacco use type Cigarette 04/28/24 11:52 e-Cigarette/Vaping Use Never Used 04/28/24 11:52 Thrive Assessment: Date of Thrive Assessment Date Thrive assessed 12/03/23 04/28/24 11:52 Telehealth Telehealth Telehealth Platform: Telephone Location of provider rendering services: practice address Location of patient: address on file Patient Identification confirmed using: Name, : Yes Telehealth method: video Patient verbally consented to treatment: Yes Patient verbally consented to billing insurance company: Yes Patient informed of any privacy concerns related to visit: Yes Minutes spent on Phone/Video with Pt.: 15 Assessment and Plan Assessment & Plan (1) COVID-19 virus infection: Comment: 04/27/2024 Code(s): U07.1 - COVID-19 Plan: Antiviral sent in For the sore throat can take Cepacol lozenges, discussed about Delsym to help with dry cough so she can rest and advised to increase oral fluids. Patient also can take Tylenol for chills and fever. Medications: New nirmatrelvir-ritonavir 300 mg (150 mg x 2)-100 mg (Paxlovid) take TWO 150 mg tablets of nirmatrelvir with ONE 100 mg tablet of ritonavir twice daily for 5 days PO 30 ea 0RF Coding Level of Care Code Tele Est Pt Level 3 (42473) Diagnoses COVID-19 virus infection U07.1
== END 2024-04-28 13:19 | disposition home or self-care (01) ==
LOC: HO.HMGH 11:50
PROVIDERS: PCP Internal Medicine; Visit Provider Internal Medicine
DX: U07.1 COVID-19 (principal)
CPT/HCPCS: 99213

== ENCOUNTER 2024-05-20 14:03 | Outpatient (REF) | payer MEDICARE, SELFPAY ==
--- NOTE | ~2024-05-20 | MM_ITS ---
EXAMINATION: BONE DENSITOMETRY CLINICAL INDICATION: Age-related osteoporosis without current pathological fracture. COMPARISON: Previous BD dated 09/23/2021 and baseline BD dated 06/18/2009. TECHNIQUE: Using a [employer] DXA System (software version: 13.1) manufactured by [employer], dual-energy x-ray absorptiometry was performed of the lumbar spine and left hip. The images are of good technical quality. Summary results are attached. FINDINGS: LEFT FEMUR, NECK: Current: BMD 0.648 g/cm2, Z-score -1.0, T-score -2.8, osteoporosis. Prior: BMD 0.653 g/cm2. Baseline: BMD 0.670 g/cm2. LEFT FEMUR, TOTAL: Current: BMD 0.666 g/cm2, Z-score -1.1, T-score -2.7, osteoporosis, 5.0% decrease from previous, 5.1% decrease from baseline (<5% change is not significant). Prior: BMD 0.701 g/cm2. Baseline: BMD 0.702 g/cm2. AP SPINE L1-L4: Current: BMD 0.907 g/cm2, Z-score -0.5, T-score -2.3, osteopenia, 5.6% increase from previous, 8.0% increase from baseline (<5% change is not significant). Prior: BMD 0.859 g/cm2. Baseline: BMD 0.840 g/cm2. IDENTIFIED RISK FACTORS: Early menopause, secondary osteoporosis, current smoker. HISTORY OF FRACTURE: None listed. MEDICATIONS: Vitamin D. MM/XR DEXA axial skeleton IMPRESSION: 1. DIAGNOSIS: Osteoporosis based on the lowest T-score value of -2.8 in the femoral neck applying World Health Organization criteria. 2. 10-YEAR FRACTURE RISK PREDICTION, FRAX: According to the guidelines, FRAX calculation should only be performed on patients in the osteopenia bone density category. Therefore, FRAX was not performed on this patient. 3. Treatment Recommendations: NOF guidelines recommend consideration for treatment in postmenopausal women and men age 50 and older presenting with the following: -A hip or vertebral (clinical or morphometric) fracture. -T-score less than or equal to -2.5 at the femoral neck or spine after appropriate evaluation to exclude secondary causes. -Low bone mass at the hip or spine and a 10-year fracture probability by FRAX of greater than or equal to 3% for hip fracture or greater than or equal to 20% for major osteoporotic fracture based on the [place] adapted WHO algorithm. 4. Other Recommendations: All treatment decisions require clinical judgment and consideration of individual patient factors, including patient preferences, comorbidities, previous drug use, risk factors not captured in the FRAX model (e.g. frailty, falls, vitamin D deficiency, increased bone turnover, interval significant decline in bone density) and possible under or overestimation of fracture risk by FRAX. Additional medical evaluation for secondary cause of low bone mineral density may be appropriate. FUTURE SCAN RECOMMENDATION: People with diagnosed cases of osteoporosis or at high risk for fracture should have regular bone mineral density tests. For patients eligible for Medicare, routine testing is allowed once every 2 years. The testing frequency can be increased to one year for patients who have rapidly progressing disease, those who are receiving or discontinuing medical therapy to restore bone mass, or have additional risk factors. Electronically signed by: Wally Felton MD 06/02/2024 08:43 AM EDT
== END 2024-05-20 14:04 | disposition home or self-care (01) ==
LOC: HO.MAMMO 14:03
PROVIDERS: PCP Internal Medicine; Visit Provider Internal Medicine
DX: M81.0 Age-related osteoporosis without current pathological fracture (principal)
CPT/HCPCS: 77080

== ENCOUNTER 2024-06-06 15:42 | Outpatient (REF) | payer MEDICARE, SELFPAY ==
--- NOTE | ~2024-06-06 | CT_ITS ---
EXAMINATION: CT LOW-DOSE SCREENING CHEST WITHOUT CONTRAST CLINICAL INFORMATION: Personal history of nicotine dependence. The patient has a 26.5 pack-year history of smoking, having quit 1 year ago. COMPARISON: X-ray chest 04/15/2024. CT chest 06/30/2022. TECHNIQUE: Multidetector volumetric CT imaging of the chest is performed on a Siemens SOMATOM Definition scanner without contrast using low dose technique. Additional 2D coronal and sagittal reformatted images and axial 3D maximum intensity projection (MIP) images are generated on the CT workstation. This CT examination was performed using dose optimization techniques as appropriate, variously including the following: *Automated exposure control *Adjustment of mA and/or kV according to patient size (this includes techniques or standardized protocols for targeted exams where dose is matched to indication/reason for exam; i.e. extremities or head) *Use of iterative reconstruction technique TOTAL EXAM DLP: 38 mGy-cm. CTDIvol: 1.18 mGy. FINDINGS: PULMONARY NODULES: No suspicious pulmonary nodules. Scattered calcified granulomas are again seen. LUNGS: Lungs bilaterally symmetrically expanded. There is [id number] emphysema. Mild bronchial thickening is seen without bronchiectasis. No effusion or pneumothorax. Central airways patent. MEDIASTINUM: No mediastinal, hilar or axillary adenopathy or free fluid collection. CORONARY ARTERY CALCIFICATION: None visualized on this study. THYROID GLAND: Unremarkable to the extent seen. CARDIOVASCULAR STRUCTURES: Aortic and heart size normal. No pericardial effusion. CHEST WALL/AXILLA: Unremarkable. UPPER ABDOMEN: Included portions of the solid organs in the upper abdomen unremarkable on noncontrast imaging. OSSEOUS STRUCTURES: No suspicious focal findings. CT/CT lung screening IMPRESSION: 1. No evidence of pulmonary malignancy. 2. Kvmf-sc-[id number] emphysema. ASSESSMENT: 1. Lung-RADS Category 1: Negative. There are no nodules or there are definitely benign nodules. N/A 2. Lung-RADS Category S: Negative. There are no clinically significant or potentially clinically significant findings not related to the lungs requiring urgent additional evaluation. RECOMMENDATION: Continued routine annual low-dose CT lung screening in 1 year is recommended. An order for CT CHEST LOW DOSE CANCER SCREENING ([id number]) can be placed. Electronically signed by: Nayan Boland MD 07/24/2024 03:41 PM [facility] [place]
== END 2024-06-06 15:43 | disposition home or self-care (01) ==
LOC: HO.CT 15:42
PROVIDERS: PCP Internal Medicine; Visit Provider Physician Assistant Medical
DX: Z12.2 Encounter for screening for malignant neoplasm of respiratory organs (principal); Z87.891 Personal history of nicotine dependence
CPT/HCPCS: 71271

== ENCOUNTER 2024-07-16 14:35 | Emergency (ER) | payer MEDICARE, SELFPAY ==
--- NOTE | 2024-07-16 14:56 | ED.NAVMDI ---
HPI - Nausea/Vomiting/Diarrhea General Chief complaint: Nausea/Vomiting/Diarrhea Stated complaint: diarrhea Time Seen by Provider: 07/16/24 20:39 History of Present Illness ED Provider: Titi GR Narrative: The patient is a 69-year-old female who says that she has had diarrhea for 3 days. She has had some abdominal pain during this 3 days but she has no abdominal pain at the time that I interviewed her. She has also had some blood with her bowel movements that she notes when she wipes herself after having a bowel movement. No actual blood in the toilet. She does not believe she is passing bloody diarrhea. No fever, sweats, chills. Related Data Previous Rx's ?Medication ?Instructions ?Recorded melatonin 3 mg tablet 3 mg PO BEDTIME PRN sleep #30 tabs 11/24/21 alendronate 70 mg tablet 70 mg PO QWEEK #12 tabs 12/19/21 cetirizine 10 mg capsule (Zyrtec) 10 mg PO DAILY #10 caps 11/21/22 mecobalamin (vitamin B12) 1,000 1,000 mcg sublingual DAILY 30 days 01/09/23 mcg disintegrating #30 tabs tablet,sublingual hydroxyzine HCl 25 mg tablet 25 mg PO BEDTIME PRN itching #30 05/17/23 tabs zolpidem 5 mg tablet 5 mg PO BEDTIME #14 tabs 05/17/23 sertraline 50 mg tablet 50 mg PO DAILY #90 tabs 07/06/23 diclofenac sodium 1 % topical gel 4 g topical QID #100 grams 08/31/23 (Voltaren Arthritis Pain) fluticasone fur. 200 mcg-umeclid 1 inh inhalation DAILY #60 ea 08/31/23 62.5 mcg-vilant 25 mcg inhalat.powder (Trelegy Ellipta) nicotine 14 mg/24 hr daily 1 patch transdermal DAILY #28 ea 08/31/23 transdermal patch nicotine 7 mg/24 hr daily 1 patch transdermal Q24H #28 ea 08/31/23 transdermal patch (Nicoderm CQ) benzonatate 200 mg capsule 200 mg PO BID-TID PRN cough #30 12/03/23 caps cholecalciferol (vitamin D3) 50 50 mcg PO DAILY #90 caps 02/29/24 mcg (2,000 unit) capsule (Vitamin D3) losartan 50 mg tablet 50 mg PO DAILY #30 tabs 04/15/24 nirmatrelvir 300 mg (150 mg See Rx Instructions PO .COMPLEX 04/28/24 x2)-ritonavir 100 mg tablet,dose #30 ea pack (Paxlovid) albuterol sulfate 90 mcg/actuation 2 inh inhalation Q6H PRN shortness 05/24/24 aerosol inhaler of breath or wheezing 30 days #18 grams hydrocortisone 2.5 % topical cream 1 appl RI BID PRN hemorrhoids #30 07/16/24 with perineal applicator grams (Proctosol HC) loperamide 2 mg capsule 2 mg PO QID PRN loose stool #14 07/16/24 caps Allergies Allergy/AdvReac Type Severity Reaction Status Date / Time No Known Allergies Allergy Verified 07/16/24 14:58 [No Known Allergies*] Review of Systems Review of Systems: Yes all other systems are reviewed and are negative [facility] Past Medical History Medical History (Updated 07/17/24 @ 00:01 by Marce Saenz) Allergic conjunctivitis and rhinitis Difficulty sleeping Lip numbness Numbness of fingers Osteoporosis Hypercholesterolemia Generalized anxiety disorder Pulmonary nodules COPD (chronic obstructive pulmonary disease) Personal history of nicotine dependence Vitamin B12 deficiency Diverticulosis Insomnia Osteoporosis Surgical History History of left breast biopsy History of colonoscopy Family History Family History Daughter Hx of cervical cancer Father Family hx of prostate cancer Mother Myocardial infarct Maternal Aunt Pancreatic cancer, Onset Age: 55 Social History Social History Household Members: Spouse Housing: Apartment Alcohol intake: current Alcohol intake frequency: holidays/special occasions only Patient Tobacco Use Status: Former Tobacco user Tobacco use type: Cigarette Cigarettes Per Day: 3 Years Smoked: 17 years e-Cigarette/Vaping Use: Never Used Second Hand Smoke Exposure: Yes Advance Directives: No Advance Directives Information Provided: Yes service: No Current occupational status: retired Current occupational exposures/hazards: No Cognitive needs: No Hearing needs: No Vision needs: Yes Physical Exam Vital Signs: Vital Signs: Last Vital Signs Temp 97.8 F 07/16/24 21:12 Pulse 89 07/16/24 21:12 Resp 16 07/16/24 21:12 BP 143/86 H 07/16/24 21:12 Pulse Ox 96 07/16/24 21:12 O2 Del Method Room Air 07/16/24 21:12 BMI result Body Mass Index 27.4 Const: Other: the patient is awake and alert and does not appear obviously ill or in distress. She is pleasant And cooperative. HEENT: Head: Yes normal to inspection Face and sinus: Yes normal facial exam Mouth: Normal oral and palatal mucosa present and moist mucous membranes Eyes: General: appearance normal, both eyes and all related structures Neck: Neck: Yes full ROM Resp: Effort & Inspection: normal respiratory effort Auscultation: clear to auscultation bilaterally Cardio: Rate: regular rate Rhythm: regular rhythm Heart sounds: S1 normal heart sound present and S2 normal heart sound present GI: Other: the abdomen is soft and nontender. Rectal exam revealed mildly inflamed but not particularly tender external hemorrhoid. No active bleeding. The rectal vault was empty of stool and there was no stool for Hemoccult testing. Skin: Other: Skin was dry and unremarkable. Neuro: Other: The patient was awake and alert appropriate. Grossly intact cranial nerves. Moving extremities normally. Gait normal. Extrem: Other: No peripheral edema Course Course Course Narrative: This is a Rapid Medical Exam performed in triage by Jenn Farris PA-C. Full HPI, ROS and PE to be performed by primary ED provider. 69yo F w/PMHx HTN, COPD, HLD presenting to the ED c/o abdominal pain & bright red bloody diarrhea x3 days. denies AC use. denies travel, suspicious food intake, lightheadedness/dizziness PE: Abdomen soft with lower abdominal tenderness, no rebound or guarding Plan: labs, occult stool Medications Administered Discontinued Medications Generic Name Dose Route Start Last Admin Trade Name Freq PRN Reason Stop Dose Admin Loperamide HCl 4 mg 07/16/24 20:59 07/16/24 21:11 Loperamide Hcl 2 Mg Capsule PO 07/16/24 21:00 4 mg ONCE ONE Administration Medical Decision Making Medical Decision Making [facility] Narrative: the patient is a 69-year-old woman who describes diarrhea over the last 3 days without significant abdominal pain. No fever or vomiting. She has notice blood when she wipes herself after using the toilet after episodes of diarrhea. Her abdominal exam is benign. Her rectal exam reveals but I think is a mildly inflamed hemorrhoid although there was no active bleeding at the time. There was no stool for examination in the rectal vault. The patient was not having any abdominal pain the time that I examined her. Her CBC shows normal white count, normal hemoglobin, unremarkable differential. I suspect patient is having hemorrhoidal bleeding. I do not think she has any acute surgical abdominal process. She was reassured. She will be prescribed Anusol and loperamide. Lab Data 07/16/24 15:14 07/16/24 15:14 Labs: Lab Results 07/16/24 Range/Units 15:14 WBC 9.3 (4.8-10.8) X10*3/uL RBC 4.57 (4.20-5.50) X10*6/uL Hgb 13.6 (12.0-16.0) g/dl Hct 41.7 (37.0-47.0) % MCV 91.2 (80.0-98.0) fL MCH 29.8 (27.0-33.0) pg MCHC 32.6 (31.0-35.0) g/dl RDW 16.6 H (11.0-16.0) % Plt Count 273 (160-400) X10*3/uL MPV 11.4 (9.4-12.3) fL Immature Gran % (Auto) 0.1 (0.0-0.4) % Neut % (Auto) 35.1 L (45-73) % Lymph % (Auto) 55.1 H (20-40) % [place] % (Auto) 5.9 (2-11) % Eos % (Auto) 3.4 (0-4) % Baso % (Auto) 0.4 (0-2) % Lymph # (Auto) 5.1 H (1.2-4.9) X10*3/uL [place] # (Auto) 0.6 (0.1-1.2) X10*3/uL Eos # (Auto) 0.3 (0.0-0.4) X10*3/uL Baso # (Auto) 0.0 (0.0-0.2) X10*3/uL Abs Immat Gran (auto) 0.01 (0.00-0.03) X10*3/uL Absolute Neuts (auto) 3.2 (2.0-8.3) x10*3/uL Absolute Nucleated RBC 0.000 (0.0-0.012) X10*3/uL Nucleated RBC % (auto) 0.0 (0.0-0.2) /100WBC Smear Tech's Comments VERIFIED PT 11.3 (10.9-12.4) SEC INR 1.0 (0.9-1.1) Sodium 141 (135-145) mmol/L Potassium 3.5 (3.3-5.1) mmol/L Chloride 109 H (96-108) mmol/L Carbon Dioxide 22 (22-29) mmol/L Anion Gap 14 (12-20) BUN 8 L (9-16) mg/dL Creatinine 0.87 (0.5-1.4) mg/dL Estim Creat Clear Calc 47.3 Estimated GFR > 60 Random Glucose 98 (60-115) mg/dL Calcium 9.2 (8.4-10.2) mg/dL Magnesium 1.8 (1.6-2.6) mg/dL Total Bilirubin 0.3 (0.0-1.0) mg/dL Direct Bilirubin 0.1 (0.0-0.5) mg/dL AST 19 (5-31) U/L ALT 12 (0-31) U/L Alkaline Phosphatase 107 (39-117) U/L C-Reactive Protein 1.50 H (< or = 0.50) mg/dL Total Protein 7.4 (6.5-8.0) g/dL Albumin 4.1 (3.5-5.0) g/dL Lipase 18 (8-78) U/L Discharge Plan Discharge Clinical Impression: Diarrhea, Bleeding hemorrhoid Patient Disposition: Home, Self-Care Instructions: Hemorrhoids (ED) Additional Instructions: I believe that the blood that you have seen has come from a bleeding hemorrhoid. I would recommend applying the hydrocortisone cream prescribed 2 times a day as needed for this hemorrhoid. You may use loperamide to help with the diarrhea. Please follow up with your regular doctor next week. Return to the emergency room if worse. Prescriptions: New hydrocortisone [Proctosol HC] 2.5 % cream with perineal applicator 1 appl RI BID PRN (Reason: hemorrhoids) Qty: 30 0RF loperamide 2 mg capsule 2 mg PO QID PRN (Reason: loose stool) Qty: 14 0RF No Action alendronate 70 mg tablet 70 mg PO QWEEK Qty: 12 0RF Rx Instructions: every Sunday sertraline 50 mg tablet 50 mg PO DAILY Qty: 90 1RF cholecalciferol (vitamin D3) [Vitamin D3] 50 mcg (2,000 unit) capsule 50 mcg PO DAILY Qty: 90 0RF albuterol sulfate 90 mcg/actuation HFA aerosol inhaler 2 inh inhalation Q6H PRN (Reason: shortness of breath or wheezing) 30 Days Qty: 18 0RF Zyrtec 10 mg capsule 10 mg PO DAILY Qty: 10 0RF Rx Instructions: Do not use Hydroxyzine when taking this medication. mecobalamin (vitamin B12) 1,000 mcg tablet,disintegrating 1,000 mcg sublingual DAILY 30 Days Qty: 30 3RF Rx Instructions: place tablet under tongue and allow to dissolve for at least30 secs before swallowing diclofenac sodium [Voltaren Arthritis Pain] 1 % gel 4 g topical QID Qty: 100 3RF Rx Instructions: apply to single knee, ankle, foot; for foot includes sole/toes/top of foot Trelegy Ellipta 200-62.5-25 mcg blister with device 1 inh inhalation DAILY Qty: 60 3RF nicotine 14 mg/24 hr patch 24 hour 1 patch transdermal DAILY Qty: 28 0RF nicotine [Nicoderm CQ] 7 mg/24 hr patch 24 hour 1 patch transdermal Q24H Qty: 28 1RF benzonatate 200 mg capsule 200 mg PO BID-TID PRN (Reason: cough) Qty: 30 0RF losartan 50 mg tablet 50 mg PO DAILY Qty: 30 3RF melatonin 3 mg tablet 3 mg PO BEDTIME PRN (Reason: sleep) Qty: 30 0RF zolpidem 5 mg tablet 5 mg PO BEDTIME Qty: 14 0RF hydroxyzine HCl 25 mg tablet 25 mg PO BEDTIME PRN (Reason: itching) Qty: 30 0RF Paxlovid 300 mg (150 mg x 2)-100 mg tablets,dose pack See Rx Instructions PO .COMPLEX Qty: 30 0RF Rx Instructions: take TWO 150 mg tablets of nirmatrelvir with ONE 100 mg tablet of ritonavir twice daily for 5 days PO Referrals: Po,Sofía Villaseñor MD [Primary Care Provider] - (Diarrhea, hemorrhoid) Interventions: ED Discharge Assessment Last Done: 07/16/24 21:12 Discharge Date/Time: 07/16/24 21:13 Print Language: [place] Island[place]
[2024-07-16 14:57] VITALS: BP 147/80; PULSE 98; RESP 16; TEMP 36.7; O2SAT 95; BMI 27.4
[2024-07-16 15:27] LABS: Basophils Percent Auto 0.4 % (0-2); Eosinophils Absolute Auto 0.3 X10*3/uL (0.0-0.4); Eosinophils Percent Auto 3.4 % (0-4); Hematocrit 41.7 % (37.0-47.0); Hemoglobin 13.6 g/dl (12.0-16.0); Imm Gran Abs Auto 0.01 X10*3/uL (0.00-0.03); Imm Gran Pct Auto 0.1 % (0.0-0.4); Lymphocytes Absolute Auto 5.1 X10*3/uL (1.2-4.9); Lymphocytes Percent Auto 55.1 % (20-40); MANUAL DIFF FLAG SCAN; Mean Corpuscular HGB Conc 32.6 g/dl (31.0-35.0); Mean Corpuscular Hemoglobin 29.8 pg (27.0-33.0); Mean Corpuscular Volume 91.2 fL (80.0-98.0); Mean Platelet Volume 11.4 fL (9.4-12.3); Monocytes Absolute Auto 0.6 X10*3/uL (0.1-1.2); Monocytes Percent Auto 5.9 % (2-11); Neutrophils Absolute Auto 3.2 x10*3/uL (2.0-8.3); Neutrophils Percent Auto 35.1 % (45-73); Platelet Count 273 X10*3/uL (160-400); Red Blood Count 4.57 X10*6/uL (4.20-5.50); Red Cell Distribution Width 16.6 % (11.0-16.0); SCAN SMEAR FLAG 1; White Blood Count 9.3 X10*3/uL (4.8-10.8)
[2024-07-16 15:37] LABS: Prothrombin Time 11.3 SEC (10.9-12.4)
[2024-07-16 15:50] LABS: Alanine Aminotransferase 12 U/L (0-31); Albumin Level 4.1 g/dL (3.5-5.0); Anion Gap 14 (12-20); Aspartate Amino Transferase 19 U/L (5-31); Bilirubin Direct 0.1 mg/dL (0.0-0.5); Bilirubin Total 0.3 mg/dL (0.0-1.0); Blood Urea Nitrogen 8 mg/dL (9-16); Calcium 9.2 mg/dL (8.4-10.2); Carbon Dioxide 22 mmol/L (22-29); Chloride 109 mmol/L (96-108); Creatinine Clr Calc Pharmacy 47.3; Estimated Glomerular Filt Rate > 60; Glucose Random 98 mg/dL (60-115); Lipase 18 U/L (8-78); Magnesium 1.8 mg/dL (1.6-2.6); Potassium 3.5 mmol/L (3.3-5.1); Sodium 141 mmol/L (135-145); Total Protein 7.4 g/dL (6.5-8.0)
[2024-07-16 16:02] LABS: Alkaline Phosphatase 107 U/L (39-117)
[2024-07-16 16:12] LABS: SLIDE REVIEW VERIFIED
[2024-07-16 20:32] VITALS: BP 143/86; PULSE 89; RESP 16; TEMP 36.6; O2SAT 96
[2024-07-16] MEDS: Loperamide HCl 2 MG CAPSULE 4 MG PO (21:11)
[2024-07-16 21:12] VITALS: BP 143/86; PULSE 89; RESP 16; TEMP 36.6; O2SAT 96
== END 2024-07-16 21:13 | disposition home or self-care (01) ==
PROVIDERS: Physician Assistant; Emergency Provider Emergency Medicine; PCP Internal Medicine
DX: R19.7 Diarrhea, unspecified (principal); K64.4 Residual hemorrhoidal skin tags; K62.5 Hemorrhage of anus and rectum; Z87.891 Personal history of nicotine dependence
CPT/HCPCS: 36415; 80048; 80076; 83690; 83735; 85025; 85610; 86140; 99283

== ENCOUNTER 2024-07-22 14:50 | Outpatient (AMB) | payer MEDICARE, SELFPAY ==
[2024-07-22 14:56] VITALS: BP 126/80; PULSE 88; O2SAT 94; BMI 27.1
--- NOTE | 2024-07-22 14:56 | A.OFFPC_ITS ---
Vital Signs 07/22/24 14:56 Height 4 ft 11 in Weight 134 lb BMI 27.1 BP 126/80 Blood Pressure Location Lt brachial Position Sitting Pulse 88 Pulse Source Pulse Oximeter Pulse Oximetry (%) 94 Oxygen Delivery Method Room Air Intake Visit Reasons: 3 mo HTN, Cough Allergies No Known Allergies [No Known Allergies*] Allergy (Verified 07/16/24 14:58) Medication List - Last Reconciled 07/22/24 by aMliha Fuchs PA-C albuterol sulfate 90 mcg/actuation 2 inhalations inhalation Q6H PRN 30 days alendronate 70 mg PO QWEEK benzonatate 200 mg PO BID-TID PRN cetirizine (Zyrtec) 10 mg PO DAILY cholecalciferol (vitamin D3) (Vitamin D3) 50 mcg PO DAILY diclofenac sodium 1% (Voltaren Arthritis Pain) 4 grams topical QID [id number] 200-62.5-25 mcg (Trelegy Ellipta) 1 inh inhalation DAILY hydrocortisone 2.5% (Proctosol HC) 1 appl OR BID PRN hydroxyzine HCl 25 mg PO BEDTIME PRN loperamide 2 mg PO QID PRN losartan 50 mg PO DAILY mecobalamin (vitamin B12) 1,000 mcg sublingual DAILY 30 days melatonin 3 mg PO BEDTIME PRN nicotine 1 patch transdermal DAILY nicotine (Nicoderm CQ) 1 patch transdermal Q24H nirmatrelvir-ritonavir 300 mg (150 mg x 2)-100 mg (Paxlovid) take TWO 150 mg tablets of nirmatrelvir with ONE 100 mg tablet of ritonavir twice daily for 5 days PO sertraline 50 mg PO DAILY zolpidem 5 mg PO BEDTIME Tobacco use date assessed: 12/03/23 Fall risk assessment: No Falls in past year Last assessed Fall Risk: 07/22/24 Dental Screening Dental Screen Date: 12/03/23 HPI 3 mo HTN, Cough HPI Details 69-year-old female with past medical his tory of hypertension, hypercholesterolemia, COPD, impaired glucose tolerance last seen April 2024 coming in for follow up. In review of the notes patient was seen in [facility] 07/16/2024 for abdominal pain diagnosed with bleeding hemorrhoid and given hydrocortisone cream and loperamide. Patient states she is still smoking cigarettes about 3-4 per day and is interested in stopping smoking. She her COPD is not well managed and she is using albuterol at least twice daily without nighttime awakenings. She has no other concerns today. [facility] Medical History (Updated 07/17/24 @ 00:01 by Marce Saenz) Allergic conjunctivitis and rhinitis Difficulty sleeping Lip numbness Numbness of fingers Osteoporosis Hypercholesterolemia Generalized anxiety disorder Pulmonary nodules COPD (chronic obstructive pulmonary disease) Personal history of nicotine dependence Vitamin B12 deficiency Diverticulosis Insomnia Osteoporosis Surgical History History of left breast biopsy History of colonoscopy Family History Daughter Hx of cervical cancer Father Family hx of prostate cancer Mother Myocardial infarct Maternal Aunt Pancreatic cancer, Onset Age: 55 Social History Household Members: Spouse Housing: Apartment Alcohol intake: current Alcohol intake frequency: holidays/special occasions only Patient Tobacco Use Status: Former Tobacco user Tobacco use type: Cigarette Cigarettes Per Day: 3 Years Smoked: 17 years e-Cigarette/Vaping Use: Never Used Second Hand Smoke Exposure: Yes service: No Current occupational status: retired Current occupational exposures/hazards: No Cognitive needs: No Hearing needs: No Vision needs: Yes Questionnaire Thrive Questionnaire Date Thrive assessed: 12/03/23 MAN-7 AMB Questionnaire MAN-7 Date MAN - 7 assessed: 12/03/23 Source: Developed by Drs. Leobardo Campos, Charlene Stoll, Syed Burk and colleagues, with an educational guera from [employer]. Review of Systems Const Denies body aches, Denies chills, Denies fever(s), Denies headache(s) and Denies poor appetite Eyes Reports no additional complaints ENT Denies dysphagia, Denies dizziness, Denies headache(s) and Denies odynophagia Card Denies chest pain, Denies syncope, Denies edema, Denies irregular heart rhythm, Denies lightheadedness and Reports dyspnea Resp Reports cough and Reports dyspnea GI Denies abdominal pain, Denies constipation, Denies dysphagia, Denies diarrhea, Denies nausea, Denies odynophagia and Denies vomiting Reports no additional complaints Musc Reports no additional complaints and Denies abnormal gait Skin/Breast Reports system reviewed and no additional complaints, except as documented Neuro Denies abnormal gait, Denies dizziness, Denies syncope and Denies headache(s) Psych Reports no additional complaints Physical exam (Primary Care) BMI result Body Mass Index 27.1 Tobacco/Smoking Status: Tobacco use Status Tobacco use date assessed 12/03/23 05/03/24 09:43 Patient Tobacco Use Status Former Tobacco user 05/03/24 09:43 Tobacco use type Cigarette 05/03/24 09:43 e-Cigarette/Vaping Use Never Used 05/03/24 09:43 Are you ready to quit: Yes Tobacco cessation counseling provided: Yes Items discussed: Nicotine replacement Relapse Prevention: discussed the importance of a supportive environment and discussed dietary, exercise and/or lifestyle changes Number of minutes spent counselin CPT code: 20530 - 4-10 Minutes Thrive Assessment: Date of Thrive Assessment Date Thrive assessed 12/03/23 05/03/24 09:43 Const General: cooperative, healthy appearing, comfortable and no acute distress Orientation/consciousness: patient oriented x3 HENMT Head: Yes normocephalic Ears: hearing grossly normal bilaterally General nose exam: Normal external nose present Eyes General: appearance normal, both eyes and all related structures Conjunctivae: conjunctivae normal Neck Neck: Yes full ROM and Yes no lymphadenopathy Resp Effort & Inspection: normal respiratory effort Auscultation: clear to auscultation bilaterally, no crackles, no rales, no rhonchi and no wheezes Cardio Rate: regular rate Rhythm: regular rhythm Skin General skin exam: no rashes or lesions noted Neuro General: patient oriented x3 Gait exam (Neuro): Normal gait present Extrem General: Yes normal to inspection, Yes full ROM and No edema Psych Affect: normal affect Attitude: cooperative Insight: Good insight present (Psych) Judgement: Good judgement present (Psych) Coding Level of Care Code Est Pt Level 4 (44911) Diagnoses Tobacco abuse Z72.0 Hypertension I10 Impaired glucose tolerance R73.02 Hypercholesterolemia E78.00 Mixed simple and mucopurulent chronic bronchitis J41.8 COPD type: chronic bronchitis Chronic bronchitis type: mixed simple and mucopurulent Additional Codes Vital Signs *Quality* - CPT code: 01869 - 4-10 Minutes ([id number]) Assessment & Plan Assessment & Plan (1) Tobacco abuse: Comment: still smoking 08/2023 Code(s): Z72.0 - Tobacco use Category: Medical Plan: Smoking cigarettes and the use of tobacco can be harmful. We discussed the importance of stopping and options to aid in smoking cessation. (2) Hypertension: Code(s): I10 - Essential (primary) hypertension Category: Medical Plan: Continue on current blood pressure medication. Avoid salt intake and encourage healthy diet and regular exercise. (3) Impaired glucose tolerance: Code(s): R73.02 - Impaired glucose tolerance (oral) Category: Medical Plan: Decrease the amount of carbohydrates such as pasta, bread, rice, and potatoes and limit the amount of sweets. Although fruits are generally healthy they should be eaten in moderation as they are still high in sugar. (4) Hypercholesterolemia: Code(s): E78.00 - Pure hypercholesterolemia, unspecified Category: Medical Plan: Avoid foods that are high in cholesterol such as red meat, fried foods, eggs and baked goods. Triglyceride goal of less than 150 and LDL goal of less than 130. (5) COPD (chronic obstructive pulmonary disease): Comment: still smoking 4 a day Code(s): J44.9 - Chronic obstructive pulmonary disease, unspecified Category: Medical Qualifiers: COPD type: chronic bronchitis Chronic bronchitis type: mixed simple and mucopurulent Qualified Code(s): J41.8 - Mixed simple and mucopurulent chronic bronchitis Plan: Strongly advised to stop smoking. Referral placed to pulmonology for further management of COPD. Continue on inhalers Plan This note was constructed using voice recognition software. While every effort has been made to ensure accuracy and product managent intern, still areas may have been included sometimes these areas may affect the content or meeting of the given symptoms. Total time spent caring for the patient today was 20 minutes. This includes time spent before the visit reviewing the chart, time spent during the visit, and time spent after the visit and documentation. Orders: Orders Free T4 (Free Thyroxine) Today E78.00 - Pure hypercholesterolemia, unspecified Lipid Panel Today E78.00 - Pure hypercholesterolemia, unspecified Thyroid Stimulating Hormone Today I10 - Essential (primary) hypertension Complete Blood Count Auto Diff Today E78.00 - Pure hypercholesterolemia, unspecified Comprehensive Met. Panel Today E78.00 - Pure hypercholesterolemia, unspecified Hemoglobin A1c Today R73.02 - Impaired glucose tolerance (oral) Vitamin B12 and Folate Today E78.00 - Pure hypercholesterolemia, unspecified Vitamin D 25-OH Total Today E78.00 - Pure hypercholesterolemia, unspecified Referrals Pulmonology Referral J41.8 - Mixed simple and mucopurulent chronic bronchitis Medications: Refilled nicotine 1 patch transdermal DAILY 28 ea 0RF Z72.0 - Tobacco use albuterol sulfate 90 mcg/actuation 2 inhalations inhalation Q6H 30 days PRN 18 grams 0RF shortness of breath or wheezing J44.9 - Chronic obstructive pulmonary disease, unspecified Discontinued nirmatrelvir-ritonavir 300 mg (150 mg x 2)-100 mg (Paxlovid) Discontinued Reason: Patient no longer taking take TWO 150 mg tablets of nirmatrelvir with ONE 100 mg tablet of ritonavir twice daily for 5 days PO 30 ea 0RF
== END 2024-07-22 15:14 | disposition home or self-care (01) ==
PROVIDERS: PCP Internal Medicine
DX: I10 Essential (primary) hypertension (principal); R73.02 Impaired glucose tolerance (oral); E78.00 Pure hypercholesterolemia, unspecified; J41.8 Mixed simple and mucopurulent chronic bronchitis; Z72.0 Tobacco use

== ENCOUNTER → 2024-07-22 14:50 | Outpatient (BNVA) | payer MEDICARE, SELFPAY | PROVIDERS: PCP Internal Medicine | DX: I10 Essential (primary) hypertension (principal); R73.02 Impaired glucose tolerance (oral); E78.00 Pure hypercholesterolemia, unspecified; J41.8 Mixed simple and mucopurulent chronic bronchitis; Z72.0 Tobacco use | CPT/HCPCS: 99212 ==

== ENCOUNTER 2024-07-29 15:13 | Outpatient (AMB) | payer MEDICARE, SELFPAY ==
[2024-07-29 15:16] VITALS: BP 150/88; PULSE 90; O2SAT 97; BMI 27.1
--- NOTE | 2024-07-29 15:16 | MHC.OFFVIS ---
Vital Signs 07/29/24 15:16 Height 4 ft 11 in Weight 134 lb 6 oz BMI 27.1 BP 150/88 H Blood Pressure Location Lt brachial Position Sitting Pulse 90 Pulse Source Pulse Oximeter Pulse Oximetry (%) 97 Oxygen Delivery Method Room Air Intake Visit Reasons: Mixed simple and mucopurulent chronic bronchitis Allergies No Known Allergies [No Known Allergies*] Allergy (Verified 07/29/24 15:19) HPI HPI Mixed simple and mucopurulent chronic bronchitis: Details: Brittany is a pleasant 69 year old female, current smoker with 54 pyh, with underlying COPD, chronic bronchitis, pulmonary nodules and osteoporosis. She was under the care of Dr. Harris but was lost to follow up, last visit 2020. She presents today to reestablish care. She reports persistent harsh cough with white sputum and dyspnea on exertion. She denies chest tightness or wheezing. She has been moderately controlled on Trelegy and albuterol MDI. She denies any visits to urgent care or hospitalizations in the last year related to respiratory distress. She has not required steroids or antibiotics in the last 6 months related to exacerbations. She continues to smoke however down to 1/4 ppd, not interested in quitting at this time. She is established with the lung cancer screening program, last LDCT 05/2024 RADS 2. Prior PFT 2016 normal spirometry, decreased DLCO. She denies seasonal allergies, has a dog at home. She denies any occupational exposures. She reports grandaughters with asthma, otherwise no pertinent family history. [facility] Medical History (Updated 07/29/24 @ 19:24 by Amparo Hubbard NP) Allergic conjunctivitis and rhinitis Difficulty sleeping Lip numbness Numbness of fingers Osteoporosis Hypercholesterolemia Generalized anxiety disorder Pulmonary nodules COPD (chronic obstructive pulmonary disease) Personal history of nicotine dependence Vitamin B12 deficiency Diverticulosis Insomnia Osteoporosis Surgical History History of left breast biopsy History of colonoscopy Family History Daughter Hx of cervical cancer Father Family hx of prostate cancer Mother Myocardial infarct Maternal Aunt Pancreatic cancer, Onset Age: 55 Social History (Updated 07/29/24 @ 15:21 by Mery Fiore CMA) Household Members: Spouse Housing: Apartment Alcohol intake: current Alcohol intake frequency: holidays/special occasions only Patient Tobacco Use Status: Current everyday Tobacco user Tobacco use type: Cigarette Cigarettes Per Day: 5 Years Smoked: 17 years e-Cigarette/Vaping Use: Never Used Second Hand Smoke Exposure: Yes service: No Current occupational status: retired Current occupational exposures/hazards: No Cognitive needs: No Hearing needs: No Vision needs: Yes Review of Systems Const Denies chills, Denies excessive sweating, Denies fever(s), Denies headache(s) and Denies night sweats Eyes Denies dry eyes, Denies irritation and Denies itchy eyes ENT Reports Normal hearing present, Denies headache(s), Denies nasal congestion, Denies nasal discharge, Denies post nasal drip and Denies sore throat Card Denies chest pain, Denies chest pain at rest, Denies chest pain with activity, Denies claudication, Denies leg edema, Denies orthopnea and Denies paroxysmal nocturnal dyspnea Resp Denies chest congestion, Denies excessive phlegm production, Denies pain on inspiration, Denies pain with cough, Denies stridor and Denies wheezing Musc Denies myalgias Neuro Reports Normal hearing present and Denies headache(s) Endo Denies excessive sweating Alex/Lymph Denies lymphadenopathy Aller/Immun Denies itchy eyes, Denies seasonal rhinorrhea and Denies wheezing Physical Exam Vital Signs: Last Vital Signs Pulse 90 07/29/24 15:16 BP 150/88 H 07/29/24 15:16 Pulse Ox 97 07/29/24 15:16 Oxygen Delivery Method Room Air 07/29/24 15:16 BMI result Body Mass Index 27.1 Const General: cooperative, healthy appearing, comfortable, no acute distress, well developed and alert Orientation/consciousness: patient oriented x3 Limitations: no limitations HEENT Head: Yes normal to inspection, Yes normocephalic and Yes atraumatic Ears: hearing grossly normal bilaterally and external ears normal Eyes General: appearance normal, both eyes and all related structures Eyelids: Yes eyelids normal Sclerae: sclerae normal EOM: EOMs intact bilaterally Neck Neck: Yes normal visual inspection and Yes no lymphadenopathy Lymphatic: no lymphadenopathy noted Chest Chest palpation & inspection: normal inspection of the chest Resp Other: rhonchi throughout Effort & Inspection: normal respiratory effort, able to speak in complete sentences, no audible wheezes, Actively coughing Quality: productive, no stridor, not tachypneic, no tripod positioning and no use of accessory muscles Auscultation: rhonchi and diminished lung sounds Cardio Jugular venous distension: no JVD Rate: regular rate Rhythm: regular rhythm Skin Other: warm, dry General skin exam: no rashes or lesions noted Neuro General: patient oriented x3 Cranial nerves: Yes Normal hearing present Cognition (Neuro): normal cognition Gait exam (Neuro): Normal gait present Extrem General: Yes normal to inspection, Yes capillary refill normal, Yes no clubbing, cyanosis or edema and Yes no pedal edema Psych Appearance: grossly normal and well kempt Speech and movement: Normal speech and movement present and Clear speech present Affect: normal affect Attitude: cooperative Thought process: Normal thought process present Thought content: Normal thought content present Insight: Good insight present (Psych) Judgement: Good judgement present (Psych) Quality Reporting (2019) Adult ([facility] 138/10/11/68) Smoking risk assessment performed?: Yes Patient Tobacco Use Status: Former Tobacco user Results Reviewed Results Reviewed: [address] [address] [address] Scan Report Signed Patient: Brittany Harris MR#: [id number] : 1955 Acct:[id number] Age/Sex: 69 / F ADM Date: 06/06/24 Loc: .CT Attending Dr: Aleena Caba PA-C Ordering Physician: Aleena Caba PA-C Date of Service: 06/06/24 Procedure(s): CT lung screening Accession Number(s): [id number] cc: Aleena Caba PA-C; Sofía Gallo MD~ EXAMINATION: CT LOW-DOSE SCREENING CHEST WITHOUT CONTRAST CLINICAL INFORMATION: Personal history of nicotine dependence. The patient has a 26.5 pack-year history of smoking, having quit 1 year ago. COMPARISON: X-ray chest 04/15/2024. CT chest 06/30/2022. TECHNIQUE: Multidetector volumetric CT imaging of the chest is performed on a Siemens SOMATOM Definition scanner without contrast using low dose technique. Additional 2D coronal and sagittal reformatted images and axial 3D maximum intensity projection (MIP) images are generated on the CT workstation. This CT examination was performed using dose optimization techniques as appropriate, variously including the following: *Automated exposure control *Adjustment of mA and/or kV according to patient size (this includes techniques or standardized protocols for targeted exams where dose is matched to indication/reason for exam; i.e. extremities or head) *Use of iterative reconstruction technique TOTAL EXAM DLP: 38 mGy-cm. CTDIvol: 1.18 mGy. FINDINGS: PULMONARY NODULES: No suspicious pulmonary nodules. Scattered calcified granulomas are again seen. LUNGS: Lungs bilaterally symmetrically expanded. There is [id number] emphysema. Mild bronchial thickening is seen without bronchiectasis. No effusion or pneumothorax. Central airways patent. MEDIASTINUM: No mediastinal, hilar or axillary adenopathy or free fluid collection. CORONARY ARTERY CALCIFICATION: None visualized on this study. THYROID GLAND: Unremarkable to the extent seen. CARDIOVASCULAR STRUCTURES: Aortic and heart size normal. No pericardial effusion. CHEST WALL/AXILLA: Unremarkable. UPPER ABDOMEN: Included portions of the solid organs in the upper abdomen unremarkable on noncontrast imaging. OSSEOUS STRUCTURES: No suspicious focal findings. CT/CT lung screening IMPRESSION: 1. No evidence of pulmonary malignancy. 2. Jigm-cy-dwnrmqub emphysema. ASSESSMENT: 1. Lung-RADS Category 1: Negative. There are no nodules or there are definitely benign nodules. N/A 2. Lung-RADS Category S: Negative. There are no clinically significant or potentially clinically significant findings not related to the lungs requiring urgent additional evaluation. RECOMMENDATION: Continued routine annual low-dose CT lung screening in 1 year is recommended. An order for CT CHEST LOW DOSE CANCER SCREENING ([id number]) can be placed. Electronically signed by: Nayan Boland MD 07/24/2024 03:41 PM [facility] Dictated By: Nayan Boland MD Signed By: <Electronically signed by Nayan Boland MD in OV> 07/24/24 1541 DD/ 1547 TD/TT: 06/06/24 1558 Operator Specialist Communications: SVEN Assessment & Plan Assessment & Plan (1) COPD (chronic obstructive pulmonary disease): Comment: still smoking 4 a day Code(s): J44.9 - Chronic obstructive pulmonary disease, unspecified Category: Medical Qualifiers: COPD type: chronic bronchitis Chronic bronchitis type: mixed simple and mucopurulent Qualified Code(s): J41.8 - Mixed simple and mucopurulent chronic bronchitis (2) Pulmonary nodules: Code(s): R91.8 - Other nonspecific abnormal finding of lung field Category: Medical (3) Tobacco dependence: Code(s): F17.200 - Nicotine dependence, unspecified, uncomplicated Category: Medical Plan Will treat patient with a zpak and prednisone. Will also give nebulizer for home use as well as acapella valve for CPT. She is aware symptoms have not improved to call office and seek emergent care if symptoms worsen. Will send for updated PFT. All questions were were answered and patient is in agreement of plan. Will follow-up in 4 weeks or sooner if needed. Medications: New ipratropium-albuterol 0.5 mg-3 mg(2.5 mg base)/3 mL 3 mL inhalation Q6H PRN 180 mL 3RF wheezing J41.8 - Mixed simple and mucopurulent chronic bronchitis azithromycin For 250 mg dose pack: take 500 mg today (day 1), then 250 mg for 4 days (days 2-5) PO 6 tabs 0RF prednisone see taper instructions; 40 mg Daily x3 days, 30 mg daily x3 days, 20 mg daily x3 days, 10 mg daily x3 days 10 mg PO DIRECTED 30 tabs 0RF Coding Level of Care Code New Pt Level 4 (16861) Diagnoses Mixed simple and mucopurulent chronic bronchitis J41.8 COPD type: chronic bronchitis Chronic bronchitis type: mixed simple and mucopurulent Pulmonary nodules R91.8 Tobacco dependence F17.200
== END 2024-07-29 15:46 | disposition home or self-care (01) ==
PROVIDERS: PCP Internal Medicine; Visit Provider Nurse Practitioner Family
DX: J41.8 Mixed simple and mucopurulent chronic bronchitis (principal); R91.8 Other nonspecific abnormal finding of lung field; F17.200 Nicotine dependence, unspecified, uncomplicated
CPT/HCPCS: 99204

== ENCOUNTER → 2024-07-29 15:13 | Outpatient (BNVA) | payer MEDICARE, SELFPAY | PROVIDERS: PCP Internal Medicine; Visit Provider Nurse Practitioner Family | DX: J41.8 Mixed simple and mucopurulent chronic bronchitis (principal); R91.8 Other nonspecific abnormal finding of lung field; F17.210 Nicotine dependence, cigarettes, uncomplicated | CPT/HCPCS: 99202 ==

== ENCOUNTER 2024-08-29 15:16 | Outpatient (AMB) | payer MEDICARE, SELFPAY ==
--- NOTE | 2024-08-29 15:15 | A.OFFVIS_ITS ---
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 Log Chain Feeder: Log Chain Feeder offered & declined Allergies No Known Allergies [No Known Allergies*] Allergy (Verified 08/29/24 15:27) Medication List - Last Reconciled 08/29/24 by Daylin Hardwick LPN albuterol sulfate 90 mcg/actuation 2 inhalations inhalation Q6H PRN 30 days alendronate 70 mg PO QWEEK benzonatate 200 mg PO BID-TID PRN cetirizine (Zyrtec) 10 mg PO DAILY cholecalciferol (vitamin D3) (Vitamin D3) 50 mcg PO DAILY diclofenac sodium 1% (Voltaren Arthritis Pain) 4 grams topical QID dlebugpsqrh-cvaovkihv-qvxjdqit 200-62.5-25 mcg (Trelegy Ellipta) 1 inh inhalation DAILY hydrocortisone 2.5% (Proctosol HC) 1 appl [place] BID PRN hydroxyzine HCl 25 mg PO BEDTIME PRN ipratropium-albuterol 0.5 mg-3 mg(2.5 mg base)/3 mL 3 mL inhalation Q6H PRN loperamide 2 mg PO QID PRN losartan 50 mg PO DAILY mecobalamin (vitamin B12) 1,000 mcg sublingual DAILY 30 days melatonin 3 mg PO BEDTIME PRN nicotine (Nicoderm CQ) 1 patch transdermal Q24H nicotine 1 patch transdermal DAILY sertraline 50 mg PO DAILY zolpidem 5 mg PO BEDTIME HPI HPI chronic bronchitis: Details: Brittany is a pleasant 69 year old female, current smoker with 54 pyh, with underlying COPD, chronic bronchitis, pulmonary nodules and osteoporosis. At baseline has been moderately controlled on Trelegy and albuterol MDI. She was seen on 07/29/24 for an acute visit reporting persistent harsh cough with white sputum and dyspnea on exertion and treated with a zpak as well as prednisone. Orders also placed for home nebulizer as well as Acapella valve. Since then she reports significant improvement and back to baseline intermittent dry cough and occasional wheezing. She has been using Duoneb BID however not using acapella. Of note, she is interested in smoking cessation with NRT. [facility] Medical History (Updated 07/29/24 @ 19:24 by Amparo Hubbard NP) Allergic conjunctivitis and rhinitis Difficulty sleeping Lip numbness Numbness of fingers Osteoporosis Hypercholesterolemia Generalized anxiety disorder Pulmonary nodules COPD (chronic obstructive pulmonary disease) Personal history of nicotine dependence Vitamin B12 deficiency Diverticulosis Insomnia Osteoporosis Surgical History History of left breast biopsy History of colonoscopy Family History Daughter Hx of cervical cancer Father Family hx of prostate cancer Mother Myocardial infarct Maternal Aunt Pancreatic cancer, Onset Age: 55 Social History (Updated 08/29/24 @ 15:32 by Daylin Hardwick LPN) Household Members: Spouse Housing: Apartment Alcohol intake: current Alcohol intake frequency: holidays/special occasions only Patient Tobacco Use Status: Current everyday Tobacco user Tobacco use type: Cigarette Cigarettes Per Day: 4 Years Smoked: 17 years e-Cigarette/Vaping Use: Never Used Second Hand Smoke Exposure: Yes service: No Current occupational status: retired Current occupational exposures/hazards: No Cognitive needs: No Hearing needs: No Vision needs: Yes Review of Systems Const Denies chills, Denies excessive sweating, Denies fever(s), Denies headache(s) and Denies night sweats Eyes Denies dry eyes, Denies irritation and Denies itchy eyes ENT Reports Normal hearing present, Denies headache(s), Denies nasal congestion, Denies nasal discharge, Denies post nasal drip and Denies sore throat Card Denies chest pain, Denies chest pain at rest, Denies chest pain with activity, Denies claudication, Denies leg edema, Reports dyspnea on exertion, Denies orthopnea and Denies paroxysmal nocturnal dyspnea Resp Denies chest congestion, Reports cough, Denies excessive phlegm production, Denies pain on inspiration, Denies pain with cough, Reports dyspnea on exertion, Denies stridor and Reports wheezing Musc Denies myalgias Neuro Reports Normal hearing present and Denies headache(s) Endo Denies excessive sweating Alex/Lymph Denies lymphadenopathy Aller/Immun Denies itchy eyes, Denies seasonal rhinorrhea and Reports wheezing Physical Exam Vital Signs: Last Vital Signs Pulse 82 08/29/24 15:20 BP 144/64 H 08/29/24 15:20 Pulse Ox 99 08/29/24 15:20 Oxygen Delivery Method Room Air 08/29/24 15:20 BMI result Body Mass Index 26.5 Const General: cooperative, healthy appearing, comfortable, no acute distress, well developed and alert Orientation/consciousness: patient oriented x3 Limitations: no limitations HEENT Head: Yes normal to inspection, Yes normocephalic and Yes atraumatic Ears: hearing grossly normal bilaterally and external ears normal Eyes General: appearance normal, both eyes and all related structures Eyelids: Yes eyelids normal Sclerae: sclerae normal EOM: EOMs intact bilaterally Neck Neck: Yes normal visual inspection and Yes no lymphadenopathy Lymphatic: no lymphadenopathy noted Chest Chest palpation & inspection: normal inspection of the chest Resp Effort & Inspection: normal respiratory effort, able to speak in complete sentences, no audible wheezes, Actively coughing, no stridor, not tachypneic, no tripod positioning and no use of accessory muscles Auscultation: no wheezes and diminished lung sounds Cardio Jugular venous distension: no JVD Rate: regular rate Rhythm: regular rhythm Skin Other: warm, dry General skin exam: no rashes or lesions noted Neuro General: patient oriented x3 Cranial nerves: Yes Normal hearing present Cognition (Neuro): normal cognition Gait exam (Neuro): Normal gait present Extrem General: Yes normal to inspection, Yes capillary refill normal, Yes no clubbing, cyanosis or edema and Yes no pedal edema Psych Appearance: grossly normal and well kempt Speech and movement: Normal speech and movement present and Clear speech present Affect: normal affect Attitude: cooperative Thought process: Normal thought process present Thought content: Normal thought content present Insight: Good insight present (Psych) Judgement: Good judgement present (Psych) Quality Reporting (2019) Adult ([facility] 138/10/11/68) Smoking risk assessment performed?: Yes Patient Tobacco Use Status: Current everyday Tobacco user Assessment & Plan Assessment & Plan (1) COPD (chronic obstructive pulmonary disease): Comment: still smoking 4 a day Code(s): J44.9 - Chronic obstructive pulmonary disease, unspecified Category: Medical Qualifiers: COPD type: chronic bronchitis Chronic bronchitis type: mixed simple and mucopurulent Qualified Code(s): J41.8 - Mixed simple and mucopurulent chronic bronchitis (2) Pulmonary nodules: Code(s): R91.8 - Other nonspecific abnormal finding of lung field Category: Medical Plan At this time she reports symptoms are well controlled on Trelegy, albuterol MDI and Duoneb. Encouraged use of Acapella valve. She is interested in smoking cessation, will send nicotine patches and follow up in 4 weeks. All questions were were answered and patient is in agreement of plan. Will follow-up in 4 weeks or sooner if needed. Medications: Refilled nicotine 1 patch transdermal DAILY 28 ea 0RF Z72.0 - Tobacco use Coding Level of Care Code Est Pt Level 4 (07897) Diagnoses Mixed simple and mucopurulent chronic bronchitis J41.8 COPD type: chronic bronchitis Chronic bronchitis type: mixed simple and mucopurulent Pulmonary nodules R91.8
[2024-08-29 15:20] VITALS: BP 144/64; PULSE 82; O2SAT 99; BMI 26.5
== END 2024-08-29 15:49 | disposition home or self-care (01) ==
PROVIDERS: PCP Internal Medicine; Visit Provider Nurse Practitioner Family
DX: J41.8 Mixed simple and mucopurulent chronic bronchitis (principal); R91.8 Other nonspecific abnormal finding of lung field
CPT/HCPCS: 99214

== ENCOUNTER → 2024-08-29 15:16 | Outpatient (BNVA) | payer MEDICARE, SELFPAY | PROVIDERS: PCP Internal Medicine; Visit Provider Nurse Practitioner Family | DX: J41.8 Mixed simple and mucopurulent chronic bronchitis (principal); R91.8 Other nonspecific abnormal finding of lung field | CPT/HCPCS: 99212 ==

== ENCOUNTER 2024-09-26 15:11 | Outpatient (AMB) | payer MEDICARE, SELFPAY ==
--- NOTE | 2024-09-26 15:21 | MHC.OFFVIS ---
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 Mink Farmer: Mink Farmer offered & declined Accompanied by: Self / Same As Patient Allergies No Known Allergies [No Known Allergies*] Allergy (Verified 09/26/24 15:23) Medication List - Last Reconciled 09/26/24 by Daylin Hardwick LPN albuterol sulfate 90 mcg/actuation 2 inhalations inhalation Q6H PRN 30 days alendronate 70 mg PO QWEEK benzonatate 200 mg PO BID-TID PRN cetirizine (Zyrtec) 10 mg PO DAILY cholecalciferol (vitamin D3) (Vitamin D3) 50 mcg PO DAILY diclofenac sodium 1% (Voltaren Arthritis Pain) 4 grams topical QID kveftmujcft-buyvywhtj-yfywnoze 200-62.5-25 mcg (Trelegy Ellipta) 1 inh inhalation DAILY hydrocortisone 2.5% (Proctosol HC) 1 appl [place] BID PRN hydroxyzine HCl 25 mg PO BEDTIME PRN ipratropium-albuterol 0.5 mg-3 mg(2.5 mg base)/3 mL 3 mL inhalation Q6H PRN loperamide 2 mg PO QID PRN losartan 50 mg PO DAILY mecobalamin (vitamin B12) 1,000 mcg sublingual DAILY 30 days melatonin 3 mg PO BEDTIME PRN nicotine (Nicoderm CQ) 1 patch transdermal Q24H nicotine 1 patch transdermal DAILY sertraline 50 mg PO DAILY zolpidem 5 mg PO BEDTIME HPI HPI chronic bronchitis: Details: Brittany is a pleasant 69 year old female, current 1/4 ppd smoker, with 54 pyh, with underlying COPD, chronic bronchitis, pulmonary nodules and osteoporosis. Today she is accompanied by daughter. At baseline she has been moderately controlled on Trelegy and albuterol MDI/neb, continues with baseline occasional cough, dyspnea and intermittent wheezing. She did note post nasal drip that may be contributing to night time cough. At the last visit, she was interested in smoking cessation, prescribed NRT, however she has not used yet. She reports she is not ready to quit at this time. She denies any visits to urgent care or hospitalizations related to respiratory distress since the last visit. [facility] Medical History (Updated 07/29/24 @ 19:24 by Amparo Hubbard NP) Allergic conjunctivitis and rhinitis Difficulty sleeping Lip numbness Numbness of fingers Osteoporosis Hypercholesterolemia Generalized anxiety disorder Pulmonary nodules COPD (chronic obstructive pulmonary disease) Personal history of nicotine dependence Vitamin B12 deficiency Diverticulosis Insomnia Osteoporosis Surgical History History of left breast biopsy History of colonoscopy Family History Daughter Hx of cervical cancer Father Family hx of prostate cancer Mother Myocardial infarct Maternal Aunt Pancreatic cancer, Onset Age: 55 Social History (Updated 08/29/24 @ 15:32 by Daylin Hardwick LPN) Household Members: Spouse Housing: Apartment Alcohol intake: current Alcohol intake frequency: holidays/special occasions only Patient Tobacco Use Status: Current everyday Tobacco user Tobacco use type: Cigarette Cigarettes Per Day: 4 Years Smoked: 17 years e-Cigarette/Vaping Use: Never Used Second Hand Smoke Exposure: Yes service: No Current occupational status: retired Current occupational exposures/hazards: No Cognitive needs: No Hearing needs: No Vision needs: Yes Review of Systems Const Denies chills, Denies excessive sweating, Denies fever(s), Denies headache(s) and Denies night sweats Eyes Denies dry eyes, Denies irritation and Denies itchy eyes ENT Reports Normal hearing present, Denies headache(s), Denies nasal congestion, Denies nasal discharge, Denies post nasal drip and Denies sore throat Card Denies chest pain, Denies chest pain at rest, Denies chest pain with activity, Denies claudication, Denies leg edema, Reports dyspnea on exertion, Denies orthopnea and Denies paroxysmal nocturnal dyspnea Resp Denies chest congestion, Reports cough, Denies excessive phlegm production, Denies pain on inspiration, Denies pain with cough, Reports dyspnea on exertion, Denies stridor and Reports wheezing Musc Denies myalgias Neuro Reports Normal hearing present and Denies headache(s) Endo Denies excessive sweating Alex/Lymph Denies lymphadenopathy Aller/Immun Denies itchy eyes, Denies seasonal rhinorrhea and Reports wheezing Physical Exam Vital Signs: Last Vital Signs Pulse 90 02/07/25 15:22 BP 112/62 09/26/24 15:22 Pulse Ox 96 09/26/24 15:22 Oxygen Delivery Method Room Air 09/26/24 15:22 BMI result Body Mass Index 25.9 Const General: cooperative, healthy appearing, comfortable, no acute distress, well developed and alert Orientation/consciousness: patient oriented x3 Limitations: no limitations HEENT Head: Yes normal to inspection, Yes normocephalic and Yes atraumatic Ears: hearing grossly normal bilaterally and external ears normal Eyes General: appearance normal, both eyes and all related structures Eyelids: Yes eyelids normal Sclerae: sclerae normal EOM: EOMs intact bilaterally Neck Neck: Yes normal visual inspection and Yes no lymphadenopathy Lymphatic: no lymphadenopathy noted Chest Chest palpation & inspection: normal inspection of the chest Resp Effort & Inspection: normal respiratory effort, able to speak in complete sentences, no audible wheezes, Actively coughing, no stridor, not tachypneic, no tripod positioning and no use of accessory muscles Auscultation: no wheezes and diminished lung sounds Cardio Rate: regular rate Rhythm: regular rhythm Skin Other: warm, dry General skin exam: no rashes or lesions noted Neuro General: patient oriented x3 Cranial nerves: Yes Normal hearing present Cognition (Neuro): normal cognition Gait exam (Neuro): Normal gait present Extrem General: Yes normal to inspection, Yes capillary refill normal, Yes no clubbing, cyanosis or edema and Yes no pedal edema Psych Appearance: grossly normal and well kempt Speech and movement: Normal speech and movement present and Clear speech present Affect: normal affect Attitude: cooperative Thought process: Normal thought process present Thought content: Normal thought content present Insight: Good insight present (Psych) Judgement: Good judgement present (Psych) Quality Reporting (2019) Adult ([facility] 138/10/11/68) Smoking risk assessment performed?: Yes Patient Tobacco Use Status: Current everyday Tobacco user Assessment & Plan Assessment & Plan (1) COPD (chronic obstructive pulmonary disease): Comment: still smoking 4 a day Code(s): J44.9 - Chronic obstructive pulmonary disease, unspecified Category: Medical Qualifiers: COPD type: chronic bronchitis Chronic bronchitis type: mixed simple and mucopurulent Qualified Code(s): J41.8 - Mixed simple and mucopurulent chronic bronchitis (2) Pulmonary nodules: Code(s): R91.8 - Other nonspecific abnormal finding of lung field Category: Medical Plan At this time she reports moderate control of respiratory symptoms on Trelegy, albuterol MDI and Duoneb, advised to continue. She continues to smoke and had long discussion regarding effects smoking has on respiratory function, however she is not ready to quit at this time. We did review need for PFT which she was agreeable, will enter order. She also noted cough possibly from PND at night time, advised to trial Flonase. All questions were were answered and patient is in agreement of plan. Will follow-up to review PFT results or sooner if needed. Orders: Orders PFT pulmonary function test Today J41.8 - Mixed simple and mucopurulent chronic bronchitis Medications: New fluticasone propionate 50 mcg/actuation (Flonase Allergy Relief) administer into each nostril 1 spray intranasal DAILY 16 grams 3RF Refilled albuterol sulfate 90 mcg/actuation 2 inhalations inhalation Q6H 30 days PRN 18 grams 0RF shortness of breath or wheezing J44.9 - Chronic obstructive pulmonary disease, unspecified albuterol sulfate 90 mcg/actuation 2 inhalations inhalation Q6H 30 days PRN 18 grams 3RF shortness of breath or wheezing J44.9 - Chronic obstructive pulmonary disease, unspecified Coding Level of Care Code Est Pt Level 4 (17832) Diagnoses Mixed simple and mucopurulent chronic bronchitis J41.8 COPD type: chronic bronchitis Chronic bronchitis type: mixed simple and mucopurulent Pulmonary nodules R91.8
[2024-09-26 15:22] VITALS: BP 112/62; PULSE 90; O2SAT 96; BMI 25.9
== END 2024-09-26 15:54 | disposition home or self-care (01) ==
PROVIDERS: PCP Internal Medicine; Visit Provider Nurse Practitioner Family
DX: J41.8 Mixed simple and mucopurulent chronic bronchitis (principal); R91.8 Other nonspecific abnormal finding of lung field
CPT/HCPCS: 99214

== ENCOUNTER → 2024-09-26 15:11 | Outpatient (BNVA) | payer MEDICARE, SELFPAY | PROVIDERS: PCP Internal Medicine; Visit Provider Nurse Practitioner Family | DX: J41.8 Mixed simple and mucopurulent chronic bronchitis (principal); R91.8 Other nonspecific abnormal finding of lung field; F17.210 Nicotine dependence, cigarettes, uncomplicated | CPT/HCPCS: 99212 ==

== ENCOUNTER 2024-10-31 14:36 | Outpatient (REF) | payer MEDICARE, SELFPAY ==
--- NOTE | 2024-10-31 14:40 | PFT_ITS ---
Flows: FEV1: 102 % of predicted at 1.78 L FVC: 100 % of predicted at 2.24 L FEV1/FVC: 79 % Bronchodilator response: Absent Volumes: Total lung capacity: 76 % of predicted at 3.04 L Residual volume: 55 % of predicted at 0.91 L Slow vital capacity: 90 % of predicted at 2.13 L Expiratory reserve volume: 56 % of predicted at 0.30 L Diffusion capacity: Moderately decreased Impression: Mild restrictive ventilatory defect with no bronchodilator response. Combination of restrictive ventilatory defect with decreased diffusion capacity suggests underlying pulmonary parenchymal disease. Clinical correlation is advised. MTDD
[2024-10-31 15:22] VITALS: PULSE 87
== END 2024-10-31 14:37 | disposition home or self-care (01) ==
LOC: HO.RESP 14:36
PROVIDERS: PCP Internal Medicine; Visit Provider Nurse Practitioner Family
DX: J41.8 Mixed simple and mucopurulent chronic bronchitis (principal)
CPT/HCPCS: 94010; 94640; 94727; 94729

== ENCOUNTER → 2024-10-31 14:40 | Outpatient (BNV) | payer MEDICARE, SELFPAY | PROVIDERS: PCP Internal Medicine; Visit Provider Internal Medicine Pulmonary Disease | DX: J41.8 Mixed simple and mucopurulent chronic bronchitis (principal) | CPT/HCPCS: 94060; 94727; 94729 ==

== ENCOUNTER 2024-11-04 14:35 | Outpatient (AMB) | payer MEDICARE, SELFPAY ==
[2024-11-04 14:43] VITALS: PULSE 101; O2SAT 99; BMI 26.3
--- NOTE | 2024-11-04 14:43 | A.OFFVIS_ITS ---
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 offered & declined Accompanied by: Self / Same As Patient Allergies No Known Allergies [No Known Allergies*] Allergy (Verified 11/05/24 14:02) Medication List - Last Reconciled 11/04/24 by Daylin Hardwick LPN albuterol sulfate 90 mcg/actuation 2 inhalations inhalation Q6H PRN 30 days alendronate 70 mg PO QWEEK benzonatate 200 mg PO BID-TID PRN cetirizine (Zyrtec) 10 mg PO DAILY cholecalciferol (vitamin D3) (Vitamin D3) 50 mcg PO DAILY diclofenac sodium 1% (Voltaren Arthritis Pain) 4 grams topical QID fluticasone propionate 50 mcg/actuation (Flonase Allergy Relief) 1 spray intranasal DAILY vfxmhfctuyd-dvengjath-ddhacuun 200-62.5-25 mcg (Trelegy Ellipta) 1 inh inhalation DAILY hydrocortisone 2.5% (Proctosol HC) 1 appl [place] BID PRN hydroxyzine HCl 25 mg PO BEDTIME PRN ipratropium-albuterol 0.5 mg-3 mg(2.5 mg base)/3 mL 3 mL inhalation Q6H PRN loperamide 2 mg PO QID PRN losartan 50 mg PO DAILY mecobalamin (vitamin B12) 1,000 mcg sublingual DAILY 30 days melatonin 3 mg PO BEDTIME PRN nicotine (Nicoderm CQ) 1 patch transdermal Q24H nicotine 1 patch transdermal DAILY sertraline 50 mg PO DAILY zolpidem 5 mg PO BEDTIME HPI HPI chronic bronchitis: Details: Brittany is a pleasant 69 year old female, current 1/4 ppd smoker, with 54 pyh, with underlying COPD, chronic bronchitis, pulmonary nodules and osteoporosis. At baseline she has been moderately controlled on Trelegy and albuterol MDI/neb, continues with baseline occasional cough, dyspnea and intermittent wheezing. She continues to report harsh cough with associated chest congestion, that is worse at night. She denies any fevers or chills. She continues to smoke but is not ready to quit at this time. She denies any visits to urgent care or hospitalizations related to respiratory distress since the last visit. [facility] Medical History (Updated 11/05/24 @ 14:25 by Sofía Gallo MD) Allergic conjunctivitis and rhinitis Difficulty sleeping Lip numbness Numbness of fingers Osteoporosis Hypercholesterolemia Generalized anxiety disorder Pulmonary nodules COPD (chronic obstructive pulmonary disease) Personal history of nicotine dependence Vitamin B12 deficiency Diverticulosis Insomnia Osteoporosis Surgical History History of left breast biopsy History of colonoscopy Family History Daughter Hx of cervical cancer Father Family hx of prostate cancer Mother Myocardial infarct Maternal Aunt Pancreatic cancer, Onset Age: 55 Social History (Updated 11/05/24 @ 14:09 by LINA Lamb) Household Members: Spouse Housing: Apartment Alcohol intake: current Alcohol intake frequency: holidays/special occasions only Patient Tobacco Use Status: Current everyday Tobacco user Tobacco use type: Cigarette Cigarettes Per Day: 4 Years Smoked: 17 years e-Cigarette/Vaping Use: Never Used Second Hand Smoke Exposure: Yes service: No Current occupational status: retired Current occupational exposures/hazards: No Cognitive needs: No Hearing needs: No Vision needs: Yes (Glasses) Review of Systems Const Denies chills, Denies excessive sweating, Denies fever(s), Denies headache(s) and Denies night sweats Eyes Denies dry eyes, Denies irritation and Denies itchy eyes ENT Reports Normal hearing present, Denies headache(s), Denies nasal congestion, Denies nasal discharge, Denies post nasal drip and Denies sore throat Card Denies chest pain, Denies chest pain at rest, Denies chest pain with activity, Denies claudication, Denies leg edema, Reports dyspnea on exertion, Denies orthopnea and Denies paroxysmal nocturnal dyspnea Resp Reports chest congestion, Reports cough, Denies hemoptysis, Denies excessive phlegm production, Denies pain on inspiration, Denies pain with cough, Reports dyspnea on exertion, Denies stridor and Reports wheezing Musc Denies myalgias Neuro Reports Normal hearing present and Denies headache(s) Endo Denies excessive sweating Alex/Lymph Denies lymphadenopathy Aller/Immun Denies itchy eyes, Denies seasonal rhinorrhea and Reports wheezing Physical Exam Vital Signs: Last Vital Signs Pulse 101 H 11/04/24 14:43 Pulse Ox 99 11/04/24 14:43 Oxygen Delivery Method Room Air 11/04/24 14:43 BMI result Body Mass Index 26.3 Const General: cooperative, healthy appearing, comfortable, no acute distress, well developed and alert Orientation/consciousness: patient oriented x3 Limitations: no limitations HEENT Head: Yes normal to inspection, Yes normocephalic and Yes atraumatic Ears: hearing grossly normal bilaterally and external ears normal Eyes General: appearance normal, both eyes and all related structures Eyelids: Yes eyelids normal Sclerae: sclerae normal EOM: EOMs intact bilaterally Neck Neck: Yes normal visual inspection and Yes no lymphadenopathy Lymphatic: no lymphadenopathy noted Chest Chest palpation & inspection: normal inspection of the chest Resp Effort & Inspection: normal respiratory effort, able to speak in complete sentences, no audible wheezes, Actively coughing, no stridor, not tachypneic, no tripod positioning and no use of accessory muscles Auscultation: no wheezes and diminished lung sounds Cardio Rate: regular rate Rhythm: regular rhythm Skin Other: warm, dry General skin exam: no rashes or lesions noted Neuro General: patient oriented x3 Cranial nerves: Yes Normal hearing present Cognition (Neuro): normal cognition Gait exam (Neuro): Normal gait present Extrem General: Yes normal to inspection, Yes capillary refill normal, Yes no clubbing, cyanosis or edema and Yes no pedal edema Psych Appearance: grossly normal and well kempt Speech and movement: Normal speech and movement present and Clear speech present Affect: normal affect Attitude: cooperative Thought process: Normal thought process present Thought content: Normal thought content present Insight: Good insight present (Psych) Judgement: Good judgement present (Psych) Assessment & Plan Assessment & Plan (1) COPD (chronic obstructive pulmonary disease): Comment: still smoking 4 a day Code(s): J44.9 - Chronic obstructive pulmonary disease, unspecified Category: Medical Qualifiers: COPD type: chronic bronchitis Chronic bronchitis type: mixed simple and mucopurulent Qualified Code(s): J41.8 - Mixed simple and mucopurulent chronic bronchitis (2) Pulmonary nodules: Code(s): R91.8 - Other nonspecific abnormal finding of lung field Category: Medical Plan Will treat bronchitic symptoms with Augmentin. Side effects reviewed and discussed using probiotic. Advised to continue Trelegy, albuterol MDI and Duoneb. Smoking cessation reviewed. Reviewed PFT which revealed mild restrictive ventilatory defect with no bronchodilator response. Combination of restrictive ventilatory defect with decreased diffusion capacity suggests underlying pulmonary parenchymal disease. Prior CT from 06/12 revealed emphysematous changes. Will have repeat LDCT 05/2025. All questions were were answered and patient is in agreement of plan. Will follow-up in 3 months or sooner if needed. Medications: New amoxicillin-pot clavulanate 875-125 mg 1 tab PO Q12H 20 tabs 0RF Coding Level of Care Code Est Pt Level 4 (00411) Diagnoses Mixed simple and mucopurulent chronic bronchitis J41.8 COPD type: chronic bronchitis Chronic bronchitis type: mixed simple and mucopurulent Pulmonary nodules R91.8
== END 2024-11-04 15:17 | disposition home or self-care (01) ==
LOC: HO.HPSW 14:36
PROVIDERS: PCP Internal Medicine; Visit Provider Nurse Practitioner Family
DX: J41.8 Mixed simple and mucopurulent chronic bronchitis (principal); R91.8 Other nonspecific abnormal finding of lung field
CPT/HCPCS: 99214

== ENCOUNTER → 2024-11-04 14:35 | Outpatient (BNVA) | payer MEDICARE, SELFPAY | PROVIDERS: PCP Internal Medicine; Visit Provider Nurse Practitioner Family | DX: J41.8 Mixed simple and mucopurulent chronic bronchitis (principal); R91.8 Other nonspecific abnormal finding of lung field; F17.210 Nicotine dependence, cigarettes, uncomplicated | CPT/HCPCS: 99212 ==

== ENCOUNTER 2024-11-05 13:57 | Outpatient (AMB) | payer MEDICARE, SELFPAY ==
--- NOTE | 2024-11-05 14:01 | MHC.PC.OV ---
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: Not Required per policy Accompanied by: Self / Same As Patient Allergies No Known Allergies [No Known Allergies*] Allergy (Verified 11/05/24 14:02) Medication List - Last Reconciled 11/05/24 by Sofía Gallo MD albuterol sulfate 90 mcg/actuation 2 inhalations inhalation Q6H PRN 30 days alendronate 70 mg PO QWEEK benzonatate 200 mg PO BID-TID PRN cetirizine (Zyrtec) 10 mg PO DAILY cholecalciferol (vitamin D3) (Vitamin D3) 50 mcg PO DAILY diclofenac sodium 1% (Voltaren Arthritis Pain) 4 grams topical QID fluticasone propionate 50 mcg/actuation (Flonase Allergy Relief) 1 spray intranasal DAILY uvteerntzra-[id number]-qgqmjelq 200-62.5-25 mcg (Trelegy Ellipta) 1 inh inhalation DAILY hydrocortisone 2.5% (Proctosol HC) 1 appl NE BID PRN hydroxyzine HCl 25 mg PO BEDTIME PRN ipratropium-albuterol 0.5 mg-3 mg(2.5 mg base)/3 mL 3 mL inhalation Q6H PRN loperamide 2 mg PO QID PRN mecobalamin (vitamin B12) 1,000 mcg sublingual DAILY 30 days melatonin 3 mg PO BEDTIME PRN nicotine (Nicoderm CQ) 1 patch transdermal Q24H nicotine 1 patch transdermal DAILY sertraline 50 mg PO DAILY zolpidem 5 mg PO BEDTIME Tobacco use date assessed: 11/05/24 Fall risk assessment: No Falls in past year Last assessed Fall Risk: 11/05/24 Dental Screening Dental Screen Date: 11/05/24 Did you have a dental visit in the last 12 months?: No Did you have a dental problem in the last 6 months where you did not have access to dental care?: No Was dental information given to patient?: No HPI f/u HLD and HTN HPI Details doing 1 months on patch and stopped 1 month PFSH Medical History (Updated 11/05/24 @ 14:25 by Sofía Gallo MD) Allergic conjunctivitis and rhinitis Difficulty sleeping Lip numbness Numbness of fingers Osteoporosis Hypercholesterolemia Generalized anxiety disorder Pulmonary nodules COPD (chronic obstructive pulmonary disease) Personal history of nicotine dependence Vitamin B12 deficiency Diverticulosis Insomnia Osteoporosis Surgical History History of left breast biopsy History of colonoscopy Family History Daughter Hx of cervical cancer Father Family hx of prostate cancer Mother Myocardial infarct Maternal Aunt Pancreatic cancer, Onset Age: 55 Social History (Updated 11/05/24 @ 14:09 by LINA Lamb) Household Members: Spouse Housing: Apartment Alcohol intake: current Alcohol intake frequency: holidays/special occasions only Patient Tobacco Use Status: Former Tobacco user Tobacco use type: Cigarette Cigarettes Per Day: 4 Years Smoked: 17 years Packs per year/per ci.00 e-Cigarette/Vaping Use: Never Used Second Hand Smoke Exposure: Yes service: No Current occupational status: retired Current occupational exposures/hazards: No Cognitive needs: No Hearing needs: No Vision needs: Yes (Glasses) Questionnaire PHQ-9 Over the last 2 weeks, how often have you been bothered by any of the following problems? 1. Little interest or pleasure in doing things: not at all 2. Feeling down, depressed, or hopeless: not at all 3. Trouble falling or staying asleep, or sleeping too much: not at all 4. Feeling tired or having little energy: not at all 5. Poor appetite or overeating: not at all 6. Feeling bad about yourself - or that you are a failure or have let yourself or your family down: not at all 7. Trouble concentrating on things, such as reading the newspaper or watching television: not at all 8. Moving or speaking so slowly that other people could have noticed. Or the opposite - being so fidgety or restless that you have been moving around a lot more than usual: not at all 9. Thoughts that you would be better off or of hurting yourself in some way: not at all Total score: 0 Depression Screening Interpretation: Negative Depression Screening Done: Yes Source: Developed by Drs. Leobardo Campos, Syed Brownlee and colleagues, with an educational guera from [employer]. Thrive Questionnaire Date Thrive assessed: 11/05/24 I am a: Patient What is your living situation today?: I have a steady place to live Within the past 12 months, did the food you bought not last and you didn't have the money to get more?: Never true Within the past 12 months, did you worry whether your food would run out before you got money to buy more?: Never true Do you have trouble paying for medicines?: No Do you have trouble getting transportation to medical appointments?: No Do you have trouble paying your heating and electricity bill?: No Do you have trouble taking care of your child, family member or friend?: No Do you have trouble with day-to-day activities such as bathing, preparing meals, shopping, managing finances, etc.?: No Are you currently unemployed and looking for a job?: No Are you interested in more education?: No Please select the resources that you would like help with: None Currently or been in a relationship where the following occur: No concerns reported THRIVE Score: 0 AUDIT C Alcohol Use Questionnaire (AUDIT-C) 1. How often do you have a drink containing alcohol?: Monthly or less 2. How many drinks containing alcohol do you have on a typical day when you are drinking?: 1 or 2 Total Score: 1 MAN-7 AMB Questionnaire AMN-7 Date MAN - 7 assessed: 11/05/24 Feeling nervous, anxious, or on edge: 0 = Not at all Not being able to stop or control worryin = Not at all Worrying too much about different things: 0 = Not at all Trouble relaxin = Not at all Being so restless that it is hard to sit still: 0 = Not at all Becoming easily annoyed or irritable: 0 = Not at all Feeling afraid as if something awful might happen: 0 = Not at all Total MAN-7 score (0-4 normal; 5-9 mild; 10-14 moderate; 15-21 severe): 0 Source: Developed by Charlene Nolasco Kurt Kroenke and colleagues, with an educational guera from [employer]. Physical exam (Primary Care) Vital Signs: Last Vital Signs Temp 97.3 F 11/05/24 14:03 Pulse 98 11/05/24 14:03 BP 120/80 11/05/24 14:03 Pulse Ox 95 11/05/24 14:03 Oxygen Delivery Method Room Air 11/05/24 14:03 BMI result Body Mass Index 26.5 Tobacco/Smoking Status: Tobacco use Status Tobacco use date assessed 11/05/24 11/05/24 14:10 Patient Tobacco Use Status Former Tobacco user 11/05/24 14:10 Tobacco use type Cigarette 11/05/24 14:10 e-Cigarette/Vaping Use Never Used 11/05/24 14:10 PHQ-9: PHQ-9 Score PHQ-9: Total score 0 11/05/24 14:10 Depression Screening Interpretation: Negative Thrive Assessment: Date of Thrive Assessment Date Thrive assessed 11/05/24 11/05/24 14:10 Currently or been in a relationship where the following occur: No concerns reported Const General: alert; No acute distress Eyes Conjunctivae: conjunctivae normal Resp Auscultation: clear to auscultation bilaterally Cardio Rate: regular rate Rhythm: regular rhythm GI Inspection: Yes normal to inspection Extrem General: Yes normal to inspection and No edema Coding Level of Care Code Est Pt Level 4 (48766) Complex EM visit Add On G2211 Diagnoses Tobacco abuse Z72.0 Hypertension I10 Impaired glucose tolerance R73.02 Hypercholesterolemia E78.00 Mixed simple and mucopurulent chronic bronchitis J41.8 COPD type: chronic bronchitis Chronic bronchitis type: mixed simple and mucopurulent Generalized anxiety disorder F41.1 Hemorrhoid K64.9 Assessment & Plan Assessment & Plan (1) Tobacco abuse: Comment: still smoking 08/2023, enrolled in the lung cancer screening July 2024 Code(s): Z72.0 - Tobacco use Category: Medical Plan: Patient is strongly advised to stop smoking. Patient follows up with Pulmonary patient does have chronic bronchitis on inhalers (2) Hypertension: Code(s): I10 - Essential (primary) hypertension Category: Medical Plan: Continue with blood pressure medication. Decrease salt intake and exercise takes losartan 50 mg once a day (3) Impaired glucose tolerance: Code(s): R73.02 - Impaired glucose tolerance (oral) Category: Medical Plan: Decrease the amount of carbohydrate intake, pasta, bread, rice and potatoes are all sugar and that is aside from all the sweet stuff, remember that fruits are good but they are Sweet also. (4) Hypercholesterolemia: Code(s): E78.00 - Pure hypercholesterolemia, unspecified Category: Medical Plan: Avoid fried foods, chicken skin, eggs, butter margarine, pastries and meat. Be it pork or beef they have a lot of cholesterol LDL goal of less than 130 and triglyceride of less than 150 (5) COPD (chronic obstructive pulmonary disease): Comment: still smoking 4 a day Code(s): J44.9 - Chronic obstructive pulmonary disease, unspecified Category: Medical Qualifiers: COPD type: chronic bronchitis Chronic bronchitis type: mixed simple and mucopurulent Qualified Code(s): J41.8 - Mixed simple and mucopurulent chronic bronchitis Plan: Continue with albuterol inhaler placed on Trelegy and on DuoNebs (6) Generalized anxiety disorder: Code(s): F41.1 - Generalized anxiety disorder Category: Medical Plan: Continue with present therapy and discussion about counseling (7) Hemorrhoid: Code(s): K64.9 - Unspecified hemorrhoids Category: Medical Plan History of Present Illness The patient is a 69-year-old female presenting for a follow-up for chronic medical conditions and preventive care screening. She has a significant history of Chronic Obstructive Pulmonary Disease (COPD) with pulmonary nodules and essential hypertension. Her management has included inhalers and efforts for smoking cessation due to her chronic bronchitis. Blood work from June showed stable renal and liver function and normal complete blood count, though potassium was slightly low. She maintains osteoporosis management, evidenced by up-to-date bone density screenings. Her cholesterol did not meet target goals in December 2022, requiring adjustment in her lipid management plan. The patient?s encounter with bleeding hemorrhoids resulted in emergency care in June 2024, with subsequent topical treatment. Despite a history of anxiety disorder, she manages it with medication including sertraline as needed. Hemorrhoidal issues have been persistent, and improvement on current therapy involves medicated creams. Her preventive care approach includes a planned mammogram for November 28, 2024, whereas the colonoscopic surveillance was last conducted in February 2020. Health Maintenance - Follow-up mammogram scheduled for November 28, 2024. - Bone density screening completed in May 2024. - Last colonoscopy conducted in February 2020. - Cholesterol management with targeted LDL goal of <130 mg/dL. - Request for fasting blood work for cholesterol and other values. - Pneumonia vaccine discussed and administered. - Recommendation of increased dietary fiber intake and hydration to manage hemorrhoids. Social History - Smoking: Active smoker with ongoing efforts for cessation. - Nutrition: Reports increased intake of water (approximately 2-4 bottles daily). - Medications: Utilizes inhalers for COPD and medications for allergies. Review of Systems - Respiratory: Reports chronic cough; denies new respiratory symptoms. - Gastrointestinal: Denies constipation. - Genitourinary: Denies urinary symptoms. Physical Exam Results - Pulmonary function test (November 03): Restrictive ventilatory defect, decreased diffusion capacity. - Cholesterol (December 2022): LDL of 149 mg/dL. - Complete Blood Count (June): Normal - Electrolytes (June): Normal, with low-normal potassium. Plan The management continues with focus on the chronic conditions including COPD, hypertension, and hypercholesterolemia while maintaining pertinent preventive care screenings. Ongoing symptomatic management of hemorrhoids includes topical treatments and dietary adjustment. Reinforcement on the importance of smoking cessation and medication adherence was provided, along with updated pneumococcal vaccination and upcoming mammogram scheduling. A comprehensive review of blood work is planned to refine her management strategy. Patient was informed and verbally consented to the use of an ambient scribe for clinic note documentation during this visit. Discussion Notes During this visit, I provided patient education regarding the benefits of smoking cessation, focusing on its impact on COPD management and overall lung health. We discussed the necessary preventive care measures, including upcoming mammogram and fasting blood work for lipid re-evaluation. I emphasized the importance of completing her pneumococcal vaccinations and explained the associated risks and benefits, obtaining her consent. For the management of hemorrhoids, I reviewed the use of topical agents and explored potential lifestyle changes including increased fiber intake. Completing the series of vaccinations and maintaining disease management were highlighted as a strategy to optimize her health outcomes. Patient Instructions - Continue with current inhalers?Trelegy, albuterol, and Duonibs. - Adhere to prescribed medications and ensure adequate dietary fiber intake. - Increase fluid intake for optimal bowel management. - Continue monitoring blood pressure at home and report any significant changes. - Schedule mammogram for November 28, 2024. - Follow up for fasting blood work as requested. - Employ warm sitz baths for hemorrhoid discomfort relief. - Receive second pneumococcal vaccination today. - Strive for smoking cessation for improved health outcomes. - Ensure adherence to scheduled preventive screenings and vaccinations. Orders: Orders Complete Blood Count Auto Diff Today E78.00 - Pure hypercholesterolemia, unspecified Comprehensive Met. Panel Today E78.00 - Pure hypercholesterolemia, unspecified Free T4 (Free Thyroxine) Today E78.00 - Pure hypercholesterolemia, unspecified Hemoglobin A1c Today R73.02 - Impaired glucose tolerance (oral) Lipid Panel Today E78.00 - Pure hypercholesterolemia, unspecified Vitamin B12 and Folate Today E78.00 - Pure hypercholesterolemia, unspecified Vitamin D 25-OH Total Today E78.00 - Pure hypercholesterolemia, unspecified Medications: Refilled benzonatate 200 mg PO BID-TID PRN 30 caps 0RF cough J41.8 - Mixed simple and mucopurulent chronic bronchitis diclofenac sodium 1% (Voltaren Arthritis Pain) apply to single knee, ankle, foot; for foot includes sole/toes/top of foot 4 grams topical QID 100 grams 3RF M25.562 - Pain in left knee ipratropium-albuterol 0.5 mg-3 mg(2.5 mg base)/3 mL 3 mL inhalation Q6H PRN 180 mL 3RF wheezing J41.8 - Mixed simple and mucopurulent chronic bronchitis zolpidem 5 mg PO BEDTIME 14 tabs 0RF G47.00 - Insomnia, unspecified cholecalciferol (vitamin D3) (Vitamin D3) 50 mcg PO DAILY 90 caps 0RF M81.0 - Age-related osteoporosis without current pathological fracture mecobalamin (vitamin B12) place tablet under tongue and allow to dissolve for at least30 secs before swallowing 1,000 mcg sublingual DAILY 30 days 30 tabs 3RF E53.8 - Deficiency of other specified B group vitamins hydrocortisone 2.5% (Proctosol HC) 1 appl NE BID PRN 30 grams 0RF hemorrhoids alendronate every Sunday 70 mg PO QWEEK 12 tabs 0RF cetirizine (Zyrtec) Do not use Hydroxyzine when taking this medication. 10 mg PO DAILY 90 caps 1RF H10.10 - Acute atopic conjunctivitis, unspecified eye, J30.9 - Allergic rhinitis, unspecified hydroxyzine HCl 25 mg PO BEDTIME PRN 30 tabs 0RF itching G47.00 - Insomnia, unspecified melatonin 3 mg PO BEDTIME PRN 30 tabs 0RF sleep sertraline 50 mg PO DAILY 90 tabs 1RF F17.200 - Nicotine dependence, unspecified, uncomplicated Discontinued amoxicillin-pot clavulanate 875-125 mg Discontinued Reason: Patient Completed Course 1 tab PO Q12H 20 tabs 0RF
[2024-11-05 14:03] VITALS: BP 120/80; PULSE 98; TEMP 36.3; O2SAT 95; BMI 26.5
== END 2024-11-05 15:12 | disposition home or self-care (01) ==
LOC: HO.HMCH 13:58
PROVIDERS: PCP Internal Medicine; Visit Provider Internal Medicine
DX: J41.8 Mixed simple and mucopurulent chronic bronchitis (principal); Z72.0 Tobacco use; I10 Essential (primary) hypertension; R73.02 Impaired glucose tolerance (oral); E78.00 Pure hypercholesterolemia, unspecified; F41.1 Generalized anxiety disorder; K64.9 Unspecified hemorrhoids; Z23 Encounter for immunization

== ENCOUNTER → 2024-11-05 13:57 | Outpatient (BNVA) | payer MEDICARE, SELFPAY | PROVIDERS: PCP Internal Medicine; Visit Provider Internal Medicine | DX: Z23 Encounter for immunization (principal); I10 Essential (primary) hypertension; E78.00 Pure hypercholesterolemia, unspecified; R73.02 Impaired glucose tolerance (oral); J41.8 Mixed simple and mucopurulent chronic bronchitis; F41.1 Generalized anxiety disorder; K64.9 Unspecified hemorrhoids; Z72.0 Tobacco use | CPT/HCPCS: 90471; 90677; 99212 ==

== ENCOUNTER → 2024-11-28 12:15 | Outpatient (BNV) | payer MEDICARE, SELFPAY | PROVIDERS: PCP Internal Medicine; Visit Provider Internal Medicine | DX: Z12.31 Encounter for screening mammogram for malignant neoplasm of breast (principal) | CPT/HCPCS: 77063; 77067 ==

== ENCOUNTER 2024-11-28 12:25 | Outpatient (REF) | payer MEDICARE, SELFPAY | END 2024-11-28 12:26 | disposition home or self-care (01) | LOC: HO.MAMMO 12:25 | PROVIDERS: PCP Internal Medicine; Visit Provider Internal Medicine | DX: Z12.31 Encounter for screening mammogram for malignant neoplasm of breast (principal) | CPT/HCPCS: 77063; 77067 ==

== ENCOUNTER 2024-12-15 19:24 | Inpatient (IN) | payer MEDICARE, SELFPAY ==
--- NOTE | 2024-12-15 | ECG_ITS ---
Test Reason : CHEST CONGESTION Blood Pressure : */* mmHG Vent. Rate : 113 BPM Atrial Rate : 113 BPM P-R Int : 128 ms QRS Dur : 66 ms QT Int : 338 ms P-R-T Axes : 43 28 50 degrees QTcB Int : 463 ms Sinus tachycardia Nonspecific ST and T wave abnormality Abnormal ECG No previous ECGs available Referred By: Selin Armstrong Electronically Signed By: Kenny Steele
--- NOTE | ~2024-12-15 | XR_ITS ---
CLINICAL HISTORY: cough 1 view chest x-ray Comparison: Chest x-ray from 04/15/2024 Findings: Mild bibasilar atelectasis and/or pneumonitis, right worse than left. Mild emphysematous changes are redemonstrated. No pneumothorax or pleural effusion. Imaged mediastinum is unchanged with mild tortuosity thoracic aorta. No osseous change in the [id number]. IMPRESSION: Mild bibasilar atelectasis/pneumonitis. This document has been electronically signed by: Itz Garrett MD on 12/15/2024 20:37:32
--- NOTE | ~2024-12-15 | CT_ITS ---
CLINICAL HISTORY: fever, cough, elevated BNP CT chest without contrast Comparison: Chest x-ray from 12/15/2024. Findings: Bilateral pulmonary opacities are nonspecific and can be seen with pulmonary edema and pneumonitis. These are superimposed on chronic lung disease given moderate to marked multifocal emphysematous changes mild bilateral peripheral scarring. Trace left pleural effusion present. No pneumothorax. Multiple mediastinal lymph nodes are nonspecific by noncontrast CT with right paratracheal measuring 7 mm short axis (imaged 40 of series 5). Vascular calcifications are multifocal including aorta, its branches, and coronary arteries. Small hiatal hernia. Mild mediastinal fluid. Mixed density of the diminutive thyroid without enlarged nodule or nodule greater than [address] Mild rib deformities appear old/chronic. Degenerative changes include imaged spine. Mild/minimal vertebral height losses appear old/chronic. Multiple hemangiomas and Schmorl's nodes noted. Facet arthropathy including mid and lower thoracic spine. IMPRESSION: 1. Mild bilateral pulmonary opacities are nonspecific and can be seen with pulmonary edema and pneumonitis. 2. Emphysematous changes again noted. This document has been electronically signed by: Itz Garrett MD on 12/16/2024 01:38:58
[2024-12-15 19:30] VITALS: BP 146/88; BP 149/68; PULSE 112; PULSE 120; RESP 40; TEMP 38; O2SAT 95; O2SAT 96; BMI 28.2
[2024-12-15 20:01] LABS: MANUAL DIFF FLAG NO
[2024-12-15 20:03] LABS: Basophils Percent Auto 0.3 % (0-2); Eosinophils Absolute Auto 0.1 X10*3/uL (0.0-0.4); Eosinophils Percent Auto 0.7 % (0-4); Hematocrit 38.6 % (37.0-47.0); Hemoglobin 13.2 g/dl (12.0-16.0); Imm Gran Abs Auto 0.03 X10*3/uL (0.00-0.03); Imm Gran Pct Auto 0.3 % (0.0-0.4); Lymphocytes Absolute Auto 3.6 X10*3/uL (1.2-4.9); Lymphocytes Percent Auto 41.5 % (20-40); Mean Corpuscular HGB Conc 34.2 g/dl (31.0-35.0); Mean Corpuscular Hemoglobin 31.2 pg (27.0-33.0); Mean Corpuscular Volume 91.3 fL (80.0-98.0); Monocytes Absolute Auto 0.6 X10*3/uL (0.1-1.2); Monocytes Percent Auto 6.7 % (2-11); Neutrophils Absolute Auto 4.4 x10*3/uL (2.0-8.3); Neutrophils Percent Auto 50.5 % (45-73); Platelet Count 196 X10*3/uL (160-400); Red Blood Count 4.23 X10*6/uL (4.20-5.50); Red Cell Distribution Width 14.7 % (11.0-16.0); White Blood Count 8.7 X10*3/uL (4.8-10.8)
--- NOTE | 2024-12-15 20:15 | ED.FEVER ---
HPI - Fever General Chief Complaint: Fever Stated Complaint: COUGH 2WEEKS [id number], ALTERED UNSTEADY Time Seen by Provider: 12/15/24 19:41 Source: patient and EMS Mode of arrival: EMS Limitations: no limitations History of Present Illness ED Provider: Dr. Amparo Shay HPI Narrative: patient comes to the emergency room via ambulance. Patient reports that she has been coughing for 2 weeks, reports fever for 3 days, patient reports a temperature of 101.6 degrees last night. Patient states that she was seen at urgent Care, was tachypneic and given her vital signs, she was sent to the emergency room for further evaluation. Patient denies chest pain. Patient admits that she still smokes. Related Data Previous Rx's ?Medication ?Instructions ?Recorded fluticasone fur. 200 mcg-umeclid 1 inh inhalation DAILY #60 ea 08/31/23 62.5 mcg-vilant 25 mcg inhalat.powder (Trelegy Ellipta) nicotine 7 mg/24 hr daily 1 patch transdermal Q24H #28 ea 08/31/23 transdermal patch (Nicoderm CQ) loperamide 2 mg capsule 2 mg PO QID PRN loose stool #14 07/16/24 caps nicotine 14 mg/24 hr daily 1 patch transdermal DAILY #28 ea 08/29/24 transdermal patch fluticasone propionate 50 1 spray intranasal DAILY #16 grams 09/26/24 mcg/actuation nasal spray,suspension (Flonase Allergy Relief) alendronate 70 mg tablet 70 mg PO QWEEK #12 tabs 11/05/24 benzonatate 200 mg capsule 200 mg PO BID-TID PRN cough #30 11/05/24 caps cetirizine 10 mg capsule (Zyrtec) 10 mg PO DAILY #90 caps 11/05/24 cholecalciferol (vitamin D3) 50 50 mcg PO DAILY #90 caps 11/05/24 mcg (2,000 unit) capsule (Vitamin D3) diclofenac sodium 1 % topical gel 4 g topical QID #100 grams 11/05/24 (Voltaren Arthritis Pain) hydrocortisone 2.5 % topical cream 1 appl AR BID PRN hemorrhoids #30 11/05/24 with perineal applicator grams (Proctosol HC) hydroxyzine HCl 25 mg tablet 25 mg PO BEDTIME PRN itching #30 11/05/24 tabs mecobalamin (vitamin B12) 1,000 1,000 mcg sublingual DAILY 30 days 11/05/24 mcg disintegrating #30 tabs tablet,sublingual melatonin 3 mg tablet 3 mg PO BEDTIME PRN sleep #30 tabs 11/05/24 sertraline 50 mg tablet 50 mg PO DAILY #90 tabs 11/05/24 zolpidem 5 mg tablet 5 mg PO BEDTIME #14 tabs 11/05/24 albuterol sulfate 90 mcg/actuation 2 inh inhalation Q6H PRN shortness 11/19/24 aerosol inhaler of breath or wheezing 30 days #18 grams ipratropium 0.5 mg-albuterol 3 mg 3 ml inhalation Q6H PRN wheezing 12/02/24 (2.5 mg base)/3 mL nebulization #180 mL soln Allergies Allergy/AdvReac Type Severity Reaction Status Date / Time No Known Allergies Allergy Verified 12/15/24 19:35 [No Known Allergies*] Review of Systems Review of Systems: Constitutional : No Weight loss, Complaining of fever and chills,No Night Sweats, No Fatigue, No Malaise ENT/Mouth : No Hearing loss, No Ear Pain, No Nasal Congestion, No Sinus Pain, No Hoarseness, No sore throat, No Rhinorrhea, No Swallowing Difficulty Eyes: No Eye Pain, No Swelling, No Redness, No Foreign Body, No Discharge, No Vision Changes Cardiovascular : No Chest Pain, No Orthopnea, No Edema, No Palpitations Respiratory : complaining of productive cough and wheezing, complaining of shortness of breath with exertion Gastrointestinal : No Nausea, No Vomiting, No Diarrhea, No Constipation, No abdominal Pain, No Hematochezia, No Melena Genitourinary : no irregular bleeding, No Dysuria, No Urinary Frequency, No Hematuria, No Urinary Incontinence, No Urgency, No Flank Pain, No Urinary Flow Changes, No Hesitancy Musculoskeletal : No joint pain, No Myalgias, No Joint Swelling Skin : No Skin Lesions, No rash Neuro : No Weakness, No Numbness, No Paresthesias, No Loss of Consciousness, No Dizziness, No Headache Psych : No Anxiety/Panic, No Depression, No SI/HI/AH/VH, No Social Issues, Heme/Lymph: No Bruising, No Bleeding,No Lymphadenopathy Endocrine : No Polyuria, No Polydipsia, No Temperature Intolerance PMFSH Past Medical History Medical History Allergic conjunctivitis and rhinitis Difficulty sleeping Lip numbness Numbness of fingers Osteoporosis Hypercholesterolemia Generalized anxiety disorder Pulmonary nodules COPD (chronic obstructive pulmonary disease) Personal history of nicotine dependence Vitamin B12 deficiency Diverticulosis Insomnia Osteoporosis Surgical History History of left breast biopsy History of colonoscopy Family History Family History Daughter Hx of cervical cancer Father Family hx of prostate cancer Mother Myocardial infarct Maternal Aunt Pancreatic cancer, Onset Age: 55 Social History Social History (Updated 11/05/24 @ 14:09 by LINA Lamb) Household Members: Spouse Housing: Apartment Alcohol intake: current Alcohol intake frequency: holidays/special occasions only Patient Tobacco Use Status: Current everyday Tobacco user Tobacco use type: Cigarette Cigarettes Per Day: 4 Years Smoked: 17 years Smoked in Last 30 Days: Yes e-Cigarette/Vaping Use: Never Used Second Hand Smoke Exposure: Yes Use of substances other than those prescribed or required for medical reasons: No Advance Directives: No Advance Directives Information Provided: No Do you have a plan to hurt others: No Plan service: No Current occupational status: retired Current occupational exposures/hazards: No Cognitive needs: No Hearing needs: No Vision needs: Yes (Glasses) Physical Exam Vital Signs: Vital Signs: Last Vital Signs Temp 98.2 F 12/15/24 23:38 Pulse 93 12/16/24 00:23 Resp 18 12/16/24 00:23 BP 145/49 H 12/16/24 00:23 Pulse Ox 94 12/16/24 00:23 O2 Del Method Room Air 12/16/24 00:23 BMI result Body Mass Index 28.2 Const: Other: Appearance: Alert. Oriented X3. No acute distress. Eyes: Pupils equal, round and reactive to light. ENT: Pharynx normal. Neck: Normal inspection. Neck supple. No lymph nodes noted. No crepitus CVS: Normal heart rate and rhythm. Pulses normal. Normal S1 and S2 Respiratory: No respiratory distress. no wheezing at this time, bilateral rales, no crackles Abdomen: Soft and nontender. No rigidity. No distention. Skin: Skin warm and dry. Normal skin color. Normal skin turgor. Extremities: No lower extremity edema. No Lacerations. No Rash Neuro: Oriented X 3. No motor deficit. No sensory deficit. Moving all extremities. No slurred speech. CN 2 through 12 grossly intact Psych: calm, cooperative, normal affect Course Course Course Narrative: patient has not oral temperature of 100.4 degrees, vitals stable, a bit tachycardic. Patient receiving IV fluids, ceftriaxone and azithromycin. At this time, 20:00, sepsis is not suspected. Patient is saturating 96% on room air Medications Administered Discontinued Medications Generic Name Dose Route Start Last Admin Trade Name Freq PRN Reason Stop Dose Admin Acetaminophen 650 mg 12/15/24 21:29 12/15/24 21:33 Acetaminophen 325 Mg Tablet PO 12/15/24 21:30 650 mg ONCE ONE Administration Acetaminophen 975 mg 12/15/24 21:35 12/15/24 21:38 Acetaminophen 325 Mg Tablet PO 12/15/24 21:36 Not Given ONCE ONE Ceftriaxone Sodium 1 gm 12/15/24 20:00 12/15/24 20:29 Ceftriaxone Sodium 1 Gm Vial IVPUSH 12/15/24 20:01 1 gm ONCE ONE Administration Azithromycin 500 mg/ Sodium 250 mls @ 125 mls/hr 12/15/24 20:00 12/15/24 22:40 Chloride IV 12/15/24 21:59 Infused ONCE ONE Infusion Sodium Chloride 1,000 mls @ 999 mls/hr 12/15/24 20:00 12/15/24 21:38 Ns IVCONT 12/15/24 21:00 Infused .Q1H1M ONE Infusion Methylprednisolone Sodium Succinate 125 mg 12/15/24 20:00 12/15/24 20:31 Methylprednisolone Sod Succ 125 Mg/2 Ml Vial IVPUSH 12/15/24 20:01 125 mg ONCE ONE Administration Medical Decision Making Medical Decision Making [facility] Narrative: my interpretation of labs: no significant abnormality in patient's hematology and chemistry, no significant abnormality in patient's blood gases, patient's troponin 25.3. Patient's BNP 916. Patient does not have any previous BNP is or history of CHF. Chest x-ray does not show any significant pulmonary edema. Patient was ambulated around the emergency room, patient oxygen saturation stayed between 94-96%. troponin x2 stable at 25.3 25.6. Likely secondary to elevated BNP of 916. Chest x-ray nonspecific. CT scan of the chest shows pneumonitis and mild pulmonary edema. To patient's knowledge, she does not ever been diagnosed with CHF. Is unclear what patient had fever, possibly pneumonitis secondary to a viral illness. Patient has no abdominal pain, urine is negative for UTI. patient does have history of chronic lung disease, patient was empirically treated with IV antibiotics. I discussed the patient with Dr. Jain, pt being admitted. patient remained stable, blood pressure 145/49, pulse 93, respirations 18, temperature 98.2 degrees, oxygen saturation 94% on room air. Sepsis not suspected Differential Diagnosis Differential Diagnoses: The differential diagnosis associated with the presentation includes ( Pneumonia, CHF, chronic lung disease) Admission/Observation Consideration of admission/observation: Escalation of care including admission/observation considered Consult Healthcare Provider Management of the patient was discussed with: Hospitalist Lab Data MDM Lab Attestation statement: I reviewed the patient's lab results. 12/15/24 19:48 12/15/24 19:48 Labs: Lab Results 12/15/24 12/15/24 12/15/24 Range/Units 19:48 19:57 20:24 WBC 8.7 (4.8-10.8) X10*3/uL RBC 4.23 (4.20-5.50) X10*6/uL Hgb 13.2 (12.0-16.0) g/dl Hct 38.6 (37.0-47.0) % MCV 91.3 (80.0-98.0) fL MCH 31.2 (27.0-33.0) pg MCHC 34.2 (31.0-35.0) g/dl RDW 14.7 (11.0-16.0) % Plt Count 196 D (160-400) X10*3/uL MPV 12.0 (9.4-12.3) fL Immature Gran % (Auto) 0.3 (0.0-0.4) % Neut % (Auto) 50.5 (45-73) % Lymph % (Auto) 41.5 H (20-40) % [place] % (Auto) 6.7 (2-11) % Eos % (Auto) 0.7 (0-4) % Baso % (Auto) 0.3 (0-2) % Lymph # (Auto) 3.6 (1.2-4.9) X10*3/uL [place] # (Auto) 0.6 (0.1-1.2) X10*3/uL Eos # (Auto) 0.1 (0.0-0.4) X10*3/uL Baso # (Auto) 0.0 (0.0-0.2) X10*3/uL Abs Immat Gran (auto) 0.03 (0.00-0.03) X10*3/uL Absolute Neuts (auto) 4.4 (2.0-8.3) x10*3/uL Absolute Nucleated RBC 0.000 (0.0-0.012) X10*3/uL Nucleated RBC % (auto) 0.0 (0.0-0.2) /100WBC VBG pH (7.32-7.43) VBG pCO2 mmHg VBG pO2 mmHg VBG HCO3 (22-26) mmol/L VBG O2 Saturation % VBG Base Excess mmol/L Sodium 137 (135-145) mmol/L Potassium 4.2 (3.3-5.1) mmol/L Chloride 103 (96-108) mmol/L Carbon Dioxide 22 (22-29) mmol/L Anion Gap 16 (12-20) BUN 13 (9-16) mg/dL Creatinine 1.07 (0.5-1.4) mg/dL Estim Creat Clear Calc 38.9 Estimated GFR 51 Random Glucose 106 (60-115) mg/dL Lactic Acid 1.2 (0.5-2.0) mmol/L Calcium 8.7 (8.4-10.2) mg/dL Total Bilirubin 0.4 (0.0-1.0) mg/dL AST 22 (5-31) U/L ALT 11 (0-31) U/L Alkaline Phosphatase 123 H (39-117) U/L Troponin I High Sens 25.3 H (<3.5-17.0) ng/L B-Natriuretic Peptide 916 H (<100) pg/mL Total Protein 7.5 (6.5-8.0) g/dL Albumin 4.1 (3.5-5.0) g/dL Urine Color Yellow Urine Appearance Clear Urine pH 5.5 (5.0-9.0) Ur Specific Baker 1.025 (1.005-1.025) Urine Protein 30 (1+) H (Neg-Trace) mg/dL Urine Glucose (UA) Negative (Negative) mg/dL Urine Ketones Trace (Negative) mg/dL Urine Blood Negative (Negative) Urine Nitrite Negative (Negative) Ur Leukocyte Esterase Negative (Negative) Urine RBC 0-2 (0-2) /HPF Urine WBC 0-5 (0-5) /HPF Ur Squamous Epith Cells 3-5 (0-2) /HPF Urine Bacteria None Seen (None Seen) Hyaline Casts 0-2 (0-2) /LPF Influenza Type A (PCR) NEGATIVE (Negative) Influenza Type B (PCR) NEGATIVE (Negative) RSV RNA Qual (PCR) NEGATIVE (Negative) SARS-CoV-2 RNA (RT-PCR) NEGATIVE (Negative) 12/15/24 12/15/24 Range/Units 20:33 23:44 WBC (4.8-10.8) X10*3/uL RBC (4.20-5.50) X10*6/uL Hgb (12.0-16.0) g/dl Hct (37.0-47.0) % MCV (80.0-98.0) fL MCH (27.0-33.0) pg MCHC (31.0-35.0) g/dl RDW (11.0-16.0) % Plt Count (160-400) X10*3/uL MPV (9.4-12.3) fL Immature Gran % (Auto) (0.0-0.4) % Neut % (Auto) (45-73) % Lymph % (Auto) (20-40) % [place] % (Auto) (2-11) % Eos % (Auto) (0-4) % Baso % (Auto) (0-2) % Lymph # (Auto) (1.2-4.9) X10*3/uL [place] # (Auto) (0.1-1.2) X10*3/uL Eos # (Auto) (0.0-0.4) X10*3/uL Baso # (Auto) (0.0-0.2) X10*3/uL Abs Immat Gran (auto) (0.00-0.03) X10*3/uL Absolute Neuts (auto) (2.0-8.3) x10*3/uL Absolute Nucleated RBC (0.0-0.012) X10*3/uL Nucleated RBC % (auto) (0.0-0.2) /100WBC VBG pH 7.41 (7.32-7.43) VBG pCO2 44 mmHg VBG pO2 30 mmHg VBG HCO3 28 H (22-26) mmol/L VBG O2 Saturation 37.0 % VBG Base Excess 3.5 mmol/L Sodium (135-145) mmol/L Potassium (3.3-5.1) mmol/L Chloride (96-108) mmol/L Carbon Dioxide (22-29) mmol/L Anion Gap (12-20) BUN (9-16) mg/dL Creatinine (0.5-1.4) mg/dL Estim Creat Clear Calc Estimated GFR Random Glucose (60-115) mg/dL Lactic Acid (0.5-2.0) mmol/L Calcium (8.4-10.2) mg/dL Total Bilirubin (0.0-1.0) mg/dL AST (5-31) U/L ALT (0-31) U/L Alkaline Phosphatase (39-117) U/L Troponin I High Sens 25.6 H (<3.5-17.0) ng/L B-Natriuretic Peptide (<100) pg/mL Total Protein (6.5-8.0) g/dL Albumin (3.5-5.0) g/dL Urine Color Urine Appearance Urine pH (5.0-9.0) Ur Specific [place] (1.005-1.025) Urine Protein (Neg-Trace) mg/dL Urine Glucose (UA) (Negative) mg/dL Urine Ketones (Negative) mg/dL Urine Blood (Negative) Urine Nitrite (Negative) Ur Leukocyte Esterase (Negative) Urine RBC (0-2) /HPF Urine WBC (0-5) /HPF Ur Squamous Epith Cells (0-2) /HPF Urine Bacteria (None Seen) Hyaline Casts (0-2) /LPF Influenza Type A (PCR) (Negative) Influenza Type B (PCR) (Negative) RSV RNA Qual (PCR) (Negative) SARS-CoV-2 RNA (RT-PCR) (Negative) Independent Interpretation I performed an independent interpretation of an: EKG, Plain X-Ray and CT Scan Critical Care Time Critical Care Time Critical Care Time: Yes Total Critical Care Time: 75 Attestation: I have personally provided critical care time. Time includes review of lab data, radiology results, discussion with consultants, and monitoring for potential decompensation. Intervention performed as documented. Discharge Plan Discharge Clinical Impression: Chronic lung disease, New onset of congestive heart failure Patient Disposition: Admitted As Inpatient Prescriptions: No Action albuterol sulfate 90 mcg/actuation HFA aerosol inhaler 2 inh inhalation Q6H PRN (Reason: shortness of breath or wheezing) 30 Days Qty: 18 3RF ipratropium-albuterol 0.5 mg-3 mg(2.5 mg base)/3 mL solution for nebulization 3 ml inhalation Q6H PRN (Reason: wheezing) Qty: 180 3RF loperamide 2 mg capsule 2 mg PO QID PRN (Reason: loose stool) Qty: 14 0RF Trelegy Ellipta 200-62.5-25 mcg blister with device 1 inh inhalation DAILY Qty: 60 3RF nicotine [Nicoderm CQ] 7 mg/24 hr patch 24 hour 1 patch transdermal Q24H Qty: 28 1RF fluticasone propionate [Flonase Allergy Relief] 50 mcg/actuation spray,suspension 1 spray intranasal DAILY Qty: 16 3RF Rx Instructions: administer into each nostril benzonatate 200 mg capsule 200 mg PO BID-TID PRN (Reason: cough) Qty: 30 0RF diclofenac sodium [Voltaren Arthritis Pain] 1 % gel 4 g topical QID Qty: 100 3RF Rx Instructions: apply to single knee, ankle, foot; for foot includes sole/toes/top of foot zolpidem 5 mg tablet 5 mg PO BEDTIME Qty: 14 0RF alendronate 70 mg tablet 70 mg PO QWEEK Qty: 12 0RF Rx Instructions: every Sunday Zyrtec 10 mg capsule 10 mg PO DAILY Qty: 90 1RF Rx Instructions: Do not use Hydroxyzine when taking this medication. cholecalciferol (vitamin D3) [Vitamin D3] 50 mcg (2,000 unit) capsule 50 mcg PO DAILY Qty: 90 0RF hydroxyzine HCl 25 mg tablet 25 mg PO BEDTIME PRN (Reason: itching) Qty: 30 0RF mecobalamin (vitamin B12) 1,000 mcg tablet,disintegrating 1,000 mcg sublingual DAILY 30 Days Qty: 30 3RF Rx Instructions: place tablet under tongue and allow to dissolve for at least30 secs before swallowing melatonin 3 mg tablet 3 mg PO BEDTIME PRN (Reason: sleep) Qty: 30 0RF sertraline 50 mg tablet 50 mg PO DAILY Qty: 90 1RF hydrocortisone [Proctosol HC] 2.5 % cream with perineal applicator 1 appl AR BID PRN (Reason: hemorrhoids) Qty: 30 0RF nicotine 14 mg/24 hr patch 24 hour 1 patch transdermal DAILY Qty: 28 0RF Print Language: Haitian
[2024-12-15 20:19] LABS: Alanine Aminotransferase 11 U/L (0-31); Albumin Level 4.1 g/dL (3.5-5.0); Alkaline Phosphatase 123 U/L (39-117); Anion Gap 16 (12-20); Aspartate Amino Transferase 22 U/L (5-31); Bilirubin Total 0.4 mg/dL (0.0-1.0); Blood Urea Nitrogen 13 mg/dL (9-16); Calcium 8.7 mg/dL (8.4-10.2); Carbon Dioxide 22 mmol/L (22-29); Chloride 103 mmol/L (96-108); Creatinine Clr Calc Pharmacy 38.9; Estimated Glomerular Filt Rate 51; Glucose Random 106 mg/dL (60-115); Potassium 4.2 mmol/L (3.3-5.1); Sodium 137 mmol/L (135-145); Total Protein 7.5 g/dL (6.5-8.0)
[2024-12-15 20:21] LABS: Lactic Acid 1.2 mmol/L (0.5-2.0)
[2024-12-15 20:28] LABS: Troponin-I High Sensitivity 25.3 ng/L (<3.5-17.0)
[2024-12-15] MEDS: 0.9 % Sodium Chloride 1,000 ML 999 ML IVCONT (20:28)
[2024-12-15] MEDS: cefTRIAXone sodium 1 GM VIAL IVPUSH (20:29)
[2024-12-15] MEDS: methylPREDNISolone Sod Succ 125 MG/2 ML VIAL IVPUSH (20:31)
[2024-12-15 20:34] VITALS: BP 163/87; PULSE 128; RESP 20; O2SAT 96
[2024-12-15 20:36] LABS: VBG Base Excess 3.5 mmol/L; VBG HCO3 28 mmol/L (22-26); VBG pCO2 44 mmHg; VBG pH 7.41 (7.32-7.43); VBG pO2 30 mmHg
[2024-12-15] MEDS: Azithromycin 500 MG in 0.9 % Sodium Chloride 250 ML 125 MG IV (20:36)
[2024-12-15 20:39] LABS: Venous Blood Gas Refer to POC result
[2024-12-15 20:42] LABS: Influenza A PCR NEGATIVE (Negative); Influenza B PCR NEGATIVE (Negative); Resp Syncy Virus RNA Qual PCR NEGATIVE (Negative); SARS COV2 PCR INHOUSE NEGATIVE (Negative)
[2024-12-15 20:44] LABS: Appearance Urine Clear; Color Urine Yellow; Glucose Urine UA Negative (Negative); Leukocyte Esterase Urine Negative (Negative); Nitrite Urine Negative (Negative); PH 5.5 (5.0-9.0); Specific Gravity - Urine 1.025 (1.005-1.025); UMIC TRIGGER UACC YES; Urine Blood Negative (Negative); Urine Ketones Trace mg/dL (Negative); Urine Protein 30 (1+) mg/dL (Neg-Trace)
[2024-12-15 20:50] LABS: Bacteria Urine None Seen (None Seen); Hyaline Casts Urine 0-2 /LPF (0-2); RBC Urine 0-2 /HPF (0-2); WBC Urine 0-5 /HPF (0-5)
[2024-12-15 20:57] LABS: B Type Natriuretic Peptide 916 pg/mL (<100)
[2024-12-15 21:09] VITALS: BP 136/71; PULSE 114; RESP 22; TEMP 39.1; O2SAT 96
[2024-12-15] MEDS: Acetaminophen 325 MG TABLET 650 MG PO (21:33)
[2024-12-15 22:12] VITALS: BP 123/69; PULSE 113; RESP 31; TEMP 38.1; O2SAT 95
[2024-12-15 22:57] VITALS: TEMP 37.2
[2024-12-15 23:38] VITALS: BP 127/56; PULSE 104; RESP 24; TEMP 36.8; O2SAT 96
[2024-12-16] VITALS (7 sets, daily range): BP systolic 105–145; BP diastolic 49–72; PULSE 86–105; RESP 18–39; TEMP 36.2–36.9; O2SAT 94–98; BMI 28.9
--- NOTE | 2024-12-16 | ECG_ITS ---
Test Reason : CHF Blood Pressure : */* mmHG Vent. Rate : 90 BPM Atrial Rate : 90 BPM P-R Int : 130 ms QRS Dur : 78 ms QT Int : 418 ms P-R-T Axes : 50 37 48 degrees QTcB Int : 511 ms Sinus rhythm with occasional Premature ventricular complexes Prolonged QT Abnormal ECG When compared to the previous EKG of prolonged QTc Referred By: Selin Armstrong Electronically Signed By: Kenny Steele
[2024-12-16 00:09] LABS: Troponin-I High Sensitivity 25.6 ng/L (<3.5-17.0)
--- NOTE | 2024-12-16 01:56 | PM.IMHP ---
History of Present Illness Date of Service: 12/16/24 Attending physician on admission: Nicole Jain Chief Complaint: SOB, weakness and fatigue Patient is a 69-year-old female speaks and understands Slovenian with past medical history of COPD/emphysema, tobacco dependence, COVID-19, DEBRA on CPAP, hyperlipidemia, depression/generalized anxiety disorder, osteoporosis presents to the emergency department via urgent care for cough x2 weeks. Patient noted a fever at home highest 101.6. Max temp in the ED was 102.4. No evidence of hypoxia this emergency room visit. Patient was 95% at the urgent care center on room air. Patient currently has no leukocytosis. Patient meets the criteria for sepsis based on fever, mild tachycardia and positive evidence of pneumonia/ pneumonitis. COPD exacerbation /Emphysema and new onset CHF with a BNP of 900 and possible pulmonary edema also concerning. Patient currently denies any chest pain, shortness of breath at rest but does report mild shortness of breath with exertion. Patient states she has been feeling weakness and fatigue for at least the last week. Patient normally follows with a icicle machine operator for her emphysema and continues to smoke 3-4 cigarettes per day and as of today would like to quit. In the emergency room patient was started on methylprednisolone, ceftriaxone and azithromycin and Tylenol for fever. BC X2 pending. UA neg for UTI. Patient currently on room air with a sat of 94%. Fever has resolved. All viral studies were negative. Review of Systems Review of Systems: Patient denies current chest pain, shortness of breath at rest, abdominal pain, nausea, vomiting, constipation, diarrhea. Patient states she is not a diabetic. Patient is reporting shortness of breath with exertion only. Patient has sleep apnea and uses CPAP at home and is willing to use CPAP in the hospital but did not bring her mask. Yes all other systems are reviewed and are negative [facility] Medical History Allergic conjunctivitis and rhinitis Difficulty sleeping Lip numbness Numbness of fingers Osteoporosis Hypercholesterolemia Generalized anxiety disorder Pulmonary nodules COPD (chronic obstructive pulmonary disease) Personal history of nicotine dependence Vitamin B12 deficiency Diverticulosis Insomnia Osteoporosis Cognitive capacity: Alert and orientated x3 Functional capacity: independent ambulation Family History Daughter Hx of cervical cancer Father Family hx of prostate cancer Mother Myocardial infarct Maternal Aunt Pancreatic cancer, Onset Age: 55 Surgical History History of left breast biopsy History of colonoscopy Social History Household Members: Spouse Housing: Apartment Alcohol intake: current Alcohol intake frequency: holidays/special occasions only Patient Tobacco Use Status: Current everyday Tobacco user Tobacco use type: Cigarette Cigarettes Per Day: 4 Years Smoked: 17 years Smoked in Last 30 Days: Yes e-Cigarette/Vaping Use: Never Used Second Hand Smoke Exposure: Yes Use of substances other than those prescribed or required for medical reasons: No Advance Directives: No Advance Directives Information Provided: No Do you have a plan to hurt others: No Plan service: No Current occupational status: retired Current occupational exposures/hazards: No Cognitive needs: No Hearing needs: No Vision needs: Yes (Glasses) Ebola Risk: Travel/Contact With Anyone From Affected Area/s: No Has Patient Experienced Ebola Symptoms: No Meds Allergies Allergy/AdvReac Type Severity Reaction Status Date / Time No Known Allergies Allergy Verified 12/15/24 19:35 [No Known Allergies*] Active Medications: Current Medications Acetaminophen (Acetaminophen 325 Mg Tablet) 650 mg PO Q6H PRN PRN Reason: Pain, Mild 1-3,fever,headache Albuterol/Ipratropium (Albuterol/Iprat 2.5/0.5mg 3 Ml Ampul.Neb) 3 ml INHALE Q4H PRN PRN Reason: Shortness of Breath/Wheezing Benzonatate (Benzonatate 100 Mg Capsule) 100 mg PO TID PRN PRN Reason: Cough Calcium Carbonate (Calcium Carbonate 750 Mg Tab.Chew) 750 mg PO Q4H PRN PRN Reason: Heartburn Ceftriaxone Sodium (Ceftriaxone Sodium 1 Gm Vial) 1 gm IVPUSH Q24H SANDOR Enoxaparin Sodium (Enoxaparin Sodium 40 Mg/0.4 Ml Syringe) 40 mg SUBCUT Q24H SANDOR Azithromycin 500 mg/ Sodium (Chloride) 250 mls @ 125 mls/hr IV Q24H SANDOR Magnesium Hydroxide (Milk Of Magnesia 30 Ml Oral.Susp) 30 ml PO DAILY PRN PRN Reason: Constipation Melatonin (Melatonin 3 Mg Tablet) 6 mg PO BEDTIME PRN PRN Reason: Insomnia Ondansetron HCl (Ondansetron Hcl 4 Mg/2 Ml Vial) 4 mg IVPUSH Q8H PRN PRN Reason: Nausea and Vomiting Senna (Sennosides 8.6 Mg Tablet) 17.2 mg PO BEDTIME SANDOR Sodium Chloride (0.9 % Sodium Chloride Flush 3 Ml Syringe) 3 ml IVFLUSH QSHIFT SANDOR Physical Exam Vital Signs and Narrative: Vital Signs: Last Vital Signs Temp 98.2 F 12/15/24 23:38 Pulse 93 12/16/24 00:23 Resp 18 12/16/24 00:23 BP 145/49 H 12/16/24 00:23 Pulse Ox 94 12/16/24 00:23 O2 Del Method Room Air 12/16/24 00:23 BMI result Body Mass Index 28.2 Alert and orientated X3, in NAD at rest Neuro: CN II-X11 intact, no deficits, visual acuity intact EYES: PERRLA, EOM intact ENT: hearing intact, no issues with swallowing observed, uvula midline, lips moist, nares patent no epistaxis Cardiac: S1 S2 RRR tachy, no murmur, no JVD, no edema in Lower ext Pulmonary: lungs diminished bilaterally, no rhonchi or wheeze noted Abdominal: BS active in all 4 quadrants, no guarding, tenderness, rebounding, mildly distended but soft MSK: strength 5/5 upper and lower extremities : no CVA tenderness no bladder distension Extremities: no edema in lower extremities, PT and DP pulses palpable +2 Psych: mood stable, judgement and insight good SKin: no open wounds noted Results Labs 12/15/24 19:48 12/15/24 19:48 Labs: Laboratory Results - last 24 hr 12/15/24 12/15/24 12/15/24 19:48 19:57 20:24 MCV 91.3 MCH 31.2 MCHC 34.2 RDW 14.7 Plt Count 196 D MPV 12.0 Immature Gran % (Auto) 0.3 Neut % (Auto) 50.5 Lymph % (Auto) 41.5 H [place] % (Auto) 6.7 Eos % (Auto) 0.7 Baso % (Auto) 0.3 Lymph # (Auto) 3.6 [place] # (Auto) 0.6 Eos # (Auto) 0.1 Baso # (Auto) 0.0 Abs Immat Gran (auto) 0.03 Absolute Neuts (auto) 4.4 Absolute Nucleated RBC 0.000 Nucleated RBC % (auto) 0.0 VBG pH VBG pCO2 VBG pO2 VBG HCO3 VBG O2 Saturation VBG Base Excess Anion Gap 16 Estim Creat Clear Calc 38.9 Estimated GFR 51 Random Glucose 106 Lactic Acid 1.2 Calcium 8.7 Total Bilirubin 0.4 AST 22 ALT 11 Alkaline Phosphatase 123 H B-Natriuretic Peptide 916 H Total Protein 7.5 Albumin 4.1 Urine Color Yellow Urine Appearance Clear Urine pH 5.5 Ur Specific [place] 1.025 Urine Protein 30 (1+) H Urine Glucose (UA) Negative Urine Ketones Trace Urine Blood Negative Urine Nitrite Negative Ur Leukocyte Esterase Negative Urine RBC 0-2 Urine WBC 0-5 Ur Squamous Epith Cells 3-5 Urine Bacteria None Seen Hyaline Casts 0-2 Influenza Type A (PCR) NEGATIVE Influenza Type B (PCR) NEGATIVE RSV RNA Qual (PCR) NEGATIVE SARS-CoV-2 RNA (RT-PCR) NEGATIVE 12/15/24 20:33 MCV MCH MCHC RDW Plt Count MPV Immature Gran % (Auto) Neut % (Auto) Lymph % (Auto) [place] % (Auto) Eos % (Auto) Baso % (Auto) Lymph # (Auto) [place] # (Auto) Eos # (Auto) Baso # (Auto) Abs Immat Gran (auto) Absolute Neuts (auto) Absolute Nucleated RBC Nucleated RBC % (auto) VBG pH 7.41 VBG pCO2 44 VBG pO2 30 VBG HCO3 28 H VBG O2 Saturation 37.0 VBG Base Excess 3.5 Anion Gap Estim Creat Clear Calc Estimated GFR Random Glucose Lactic Acid Calcium Total Bilirubin AST ALT Alkaline Phosphatase B-Natriuretic Peptide Total Protein Albumin Urine Color Urine Appearance Urine pH Ur Specific [place] Urine Protein Urine Glucose (UA) Urine Ketones Urine Blood Urine Nitrite Ur Leukocyte Esterase Urine RBC Urine WBC Ur Squamous Epith Cells Urine Bacteria Hyaline Casts Influenza Type A (PCR) Influenza Type B (PCR) RSV RNA Qual (PCR) SARS-CoV-2 RNA (RT-PCR) ECG Attestation: I personally reviewed and interpreted this ECG as follows: (Normal sinus rhythm with PVCs) Imaging Radiologist's Impressions: CT Chest Findings: Bilateral pulmonary opacities are nonspecific and can be seen with pulmonary edema and pneumonitis. These are superimposed on chronic lung disease given moderate to marked multifocal emphysematous changes mild bilateral peripheral scarring. Trace left pleural effusion present. No pneumothorax. Multiple mediastinal lymph nodes are nonspecific by noncontrast CT with right paratracheal measuring 7 mm short axis (imaged 40 of series 5). Vascular calcifications are multifocal including aorta, its branches, and coronary arteries. Small hiatal hernia. Mild mediastinal fluid. Mixed density of the diminutive thyroid without enlarged nodule or nodule greater than [address] Mild rib deformities appear old/chronic. Degenerative changes include imaged spine. Mild/minimal vertebral height losses appear old/chronic. Multiple hemangiomas and Schmorl's nodes noted. Facet arthropathy including mid and lower thoracic spine. IMPRESSION: 1. Mild bilateral pulmonary opacities are nonspecific and can be seen with pulmonary edema and pneumonitis. 2. Emphysematous changes again noted. CXR Findings: Mild bibasilar atelectasis and/or pneumonitis, right worse than left. Mild emphysematous changes are redemonstrated. No pneumothorax or pleural effusion. Imaged mediastinum is unchanged with mild tortuosity thoracic aorta. No osseous change in the [id number]. IMPRESSION: Mild bibasilar atelectasis/pneumonitis. Assessment and Plan (1) CAP (community acquired pneumonia): Status: Acute Plan Patient is a 69-year-old female speaks and understands Slovenian with past medical history of COPD/emphysema, tobacco dependence, COVID-19, DEBRA on CPAP, hyperlipidemia, depression/generalized anxiety disorder, osteoporosis presents to the emergency department via urgent care for cough x2 weeks. Patient being admitted for pneumonitis/pneumonia, COPD exacerbation with known emphysema and new onset CHF suspected with an elevated BNP and pulmonary edema. Pneumonitis/pneumonia/COPD exacerbation with evidence of sepsis but no hypoxia -patient is started on ceftriaxone azithromycin -all viral studies were negative -blood cultures pending -oxygen via nasal cannula as needed, patient currently on room air -duo nebs as needed, supportive care to include antitussives -incentive spirometry -continue telemetry, continuous pulse ox -continue methylprednisolone 60 mg b.i.d. New onset CHF with a BNP of 900 and pulmonary edema -Lasix 20 mg IV x1, patient is presenting euvolemic -echo ordered -cardiology consulted -continue telemetry -troponins are flat, highest 25.6 -EKG negative for ischemic changes -low-sodium diet -daily weights with strict I's and O's -fluid allowance of 1500 DEBRA -CPAP ordered Tobacco dependent -nicotine patch ordered DVT prophylaxis: Lovenox PPI prophylaxis: Omeprazole Med rec pending - Quality Stroke Does the patient have a stroke diagnosis?: No Reason for No Anti-thrombotic by Day Two: N/A - Med Ordered VTE Prior VTE?: No VTE Risk Level:: Medical - moderate - high VTE Device Contraindication: N/A - Device Ordered VTE Drug Contraindication: N/A - Med Ordered
[2024-12-16] MEDS: Furosemide 20 MG/2 ML VIAL IVPUSH (03:07)
--- NOTE | 2024-12-16 03:16 | PC.NURSE ---
Patient medicated per MAR.
[2024-12-16 04:51] LABS: MANUAL DIFF FLAG NO
[2024-12-16 04:55] LABS: Basophils Percent Auto 0.3 % (0-2); Hematocrit 38.4 % (37.0-47.0); Imm Gran Abs Auto 0.03 X10*3/uL (0.00-0.03); Imm Gran Pct Auto 0.4 % (0.0-0.4); Lymphocytes Absolute Auto 1.6 X10*3/uL (1.2-4.9); Lymphocytes Percent Auto 20.8 % (20-40); Mean Corpuscular HGB Conc 33.9 g/dl (31.0-35.0); Mean Corpuscular Hemoglobin 31.1 pg (27.0-33.0); Mean Corpuscular Volume 91.9 fL (80.0-98.0); Mean Platelet Volume 12.4 fL (9.4-12.3); Monocytes Absolute Auto 0.2 X10*3/uL (0.1-1.2); Monocytes Percent Auto 2.4 % (2-11); Neutrophils Absolute Auto 5.8 x10*3/uL (2.0-8.3); Neutrophils Percent Auto 76.1 % (45-73); Platelet Count 178 X10*3/uL (160-400); Red Blood Count 4.18 X10*6/uL (4.20-5.50); Red Cell Distribution Width 14.9 % (11.0-16.0); White Blood Count 7.6 X10*3/uL (4.8-10.8)
[2024-12-16 05:25] LABS: Alanine Aminotransferase 14 U/L (0-31); Albumin Level 3.9 g/dL (3.5-5.0); Alkaline Phosphatase 121 U/L (39-117); Anion Gap 16 (12-20); Aspartate Amino Transferase 29 U/L (5-31); Bilirubin Total 0.3 mg/dL (0.0-1.0); Blood Urea Nitrogen 13 mg/dL (9-16); Calcium 8.3 mg/dL (8.4-10.2); Carbon Dioxide 18 mmol/L (22-29); Chloride 108 mmol/L (96-108); Creatinine Clr Calc Pharmacy 46.3; Estimated Glomerular Filt Rate > 60; Glucose Random 183 mg/dL (60-115); Magnesium 1.9 mg/dL (1.6-2.6); Potassium 3.7 mmol/L (3.3-5.1); Sodium 138 mmol/L (135-145); Total Protein 7.5 g/dL (6.5-8.0)
[2024-12-16 05:40] LABS: Thyroid Stimulating Hormone 0.91 uIU/mL (0.32-4.0)
--- NOTE | 2024-12-16 07:00 | CA_ITS ---
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 There is mildly increased left ventricular wall thickness. The left ventricular systolic function is mild to moderately decreased. The visually estimated ejection fraction is between 35-40%. - Elevated filling pressures. - Normal right ventricular cavity size and systolic function. Findings Left Ventricle Normal left ventricular cavity size. There is mildly increased left ventricular wall thickness. The left ventricular systolic function is mild to moderately decreased. The visually estimated ejection fraction is between 35-40%. There is mild global hypokinesis. Abnormal diastolic function is noted. Spectral Doppler is indicative of an impaired relaxation filling pattern. Elevated filling pressures. Right Ventricle Normal right ventricular cavity size and systolic function. Atria The left atrium is normal in size. The right atrium is normal in size. Aortic Valve Normal aortic valve structure and function. There is no aortic valve stenosis. There is no aortic valve regurgitation. Mitral Valve The mitral valve appears normal. There is trace mitral valve regurgitation. There is no mitral valve stenosis. Pulmonic Valve The pulmonic valve is normal. There is no pulmonic valve regurgitation. Tricuspid Valve Normal tricuspid valve structure. There is no tricuspid valve regurgitation. Normal right atrial pressure. There is no evidence of pulmonary hypertension. Great Vessels All visible segments of the aorta are normal in size. The visualized portions of the pulmonary artery and branches are normal. Venous The inferior vena cava is normal in size and collapses greater than 50% with inspiration. Pericardium/Pleural There is no evidence of pericardial effusion. Prior Study Comparison No prior study available for comparison. Measurements 2D Linear Measurements IVSd: 1.13 0.6-0.9/0.6-1.0 cm LVIDd: 4.28 3.9-5.3/4.2-5.9 cm LVIDd Index: 2.68 2.4-3.2/2.2-3.1 cm/m2 LVIDs: 3.74 2.0-3.6 cm LVPWd: 1.01 0.7-1.1 cm Ao Root: 2.70 2.1-3.5 cm LA Diam: 3.40 2.7-3.8/3.0-4.0 cm LAIDs Index: 2.13 1.5-2.3 cm/m2 LV Mass: 193.65 67-162/88-224 g LV Mass Index: 121.03 43-95/49-115 g/m2 LVOT Diam: 2.20 3.0+(-)1.3 cm 2D Systolic Function EF 4C: 35.00 >55% EF 2C: 38.30 >55% EF BiP: 37.80 >55% Mitral Valve MV Pk E: 0.81 MV PK A: 0.98 MV Decel Time: 182.00 E/A: 0.80 E'Lateral: 3.70 E'Medial: 3.37 E/E' Med: 23.90 E/E' Lat: 21.80 PHT: 53.00 MVA PHT: 4.15 Decel [place]: 4.41 Aortic Valve AoV Pk Christopher: 0.89 AoV Pk Grad: 3.00 LVOT LVOT Pk Christopher: 0.64 LVOT Mn Christopher: 0.43 LVOT VTI: 0.11 LVOT Pk Grad: 2.00 LVOT Mn Grad: 1.00 LVOT Diam: 2.20 LVOT Area: 3.80 Diastolic Function MV Pk E: 0.81 MV Pk A: 0.98 E/A: 0.80 E'Medial: 3.37 E/E' Med: 23.90 E' Laterial: 3.70 E/E' Lat: 21.80 Right Ventricle TAPSE (mm): 13.40 TVS' Christopher: 8.16 Tricuspid Valve TR Pk Christopher: 1.92 TR Pk Grad: 15.00 RA Press: 3.00 RVSP: 18.00 Great Vessels Aorta Ao Root-2D: 2.70 2.0-3.7 cm Ao Asc: 3.20 2.1-3.4 cm Pulmonary Valve PV Pk Christopher: 0.54 Peak PV Grad: 1.00 Updated in Other Vendor System with Status of Final Kenny Steele MD electronically signed on 12/19/2024 2:48:06 PM with status of Final
--- NOTE | 2024-12-16 08:15 | PM.EVENT ---
Event Note Date of Service: 12/16/24 Event Note: 69-year-old female speaks and understands Vietnamese with past medical history of COPD/emphysema, tobacco dependence, COVID-19, DEBRA on CPAP, hyperlipidemia, depression/generalized anxiety disorder, osteoporosis presented to the emergency department via urgent care for cough x2 weeks. Patient being admitted for pneumonitis/pneumonia, COPD exacerbation with known emphysema and new onset CHF suspected with an elevated BNP and pulmonary edema. Pneumonitis/pneumonia/COPD exacerbation with evidence of sepsis but no hypoxia Flu, COVID, RSV negative oxygen via nasal cannula as needed, patient currently on room air, keep sats >90% duo nebs as needed, supportive care to include antitussives incentive spirometry ceftriaxone azithromycin continue methylprednisolone 60 mg b.i.d. New onset CHF with a BNP of 900 and pulmonary edema Lasix 20 mg IV x1 echo ordered cardiology consulted> hold off on diuretics for now appearing euvolemic continue telemetry daily weights with strict I's and O's fluid restriction of 1500 DEBRA CPAP ordered Tobacco dependent nicotine patch ordered DVT prophylaxis: Lovenox Full code Time Spent With Patient Time: Total time managing care of this patient today ____ minutes.
[2024-12-16] MEDS: 0.9 % Sodium Chloride Flush 3 ML SYRINGE IVFLUSH ×2 (09:20→17:22)
[2024-12-16] MEDS: methylPREDNISolone Sod Succ 125 MG/2 ML VIAL 60 MG IVPUSH ×2 (09:21→20:22)
[2024-12-16] MEDS: Enoxaparin Sodium 40 MG/0.4 ML SYRINGE SUBCUT (09:21)
[2024-12-16] MEDS: Nicotine 14 MG PATCH.TD24 TRANSDERMA (09:22)
--- NOTE | 2024-12-16 09:31 | MHC.CM.PN ---
IMM 12/16/24, Pt lives with her and grand dtr. She does not have home health services, or use DME. She said that she has HCP, but could not remember who is it. PCP is confirmed: Dr. Gallo. Pt is able to arrange transport home at [place]. DCP: home, self care. CM to follow for DC needs.
--- NOTE | 2024-12-16 09:32 | PC.NURSE ---
pt is alert and oriented, skin appropriate for ethnicity but slightly clammy to the touch, respirations even and unlabored, ls clear but pt does have an intermittent junky cough, pt is reporting 5/10 neck pain at this time, denies feeling sob, no peding edema and vs stable and ns on the monitor
--- NOTE | 2024-12-16 09:51 | PHA.MEDREC ---
Addendum entered by Clarissa Allen RPh 12/16/24 11:02: Med rec was reviewed by [facility]. Original Note: Pharmacy Consult ? Medication Reconciliation Pharmacy has completed the medication reconciliation. Spoke to patient to confirm to confirm med list. Patient states she is no longer on Fluticasone fur-200 mcg-umeclidmcg vilant 25 mcg, Nicotine 7 mg patch (patient is on 14 mg) and Zolpidem 5 mg. Patient confirmed Alendronate 70 mg is ever Sunday, last dose was 12/08/24.
--- NOTE | 2024-12-16 12:44 | P.CONCA_ITS ---
History of Present Illness History of Present Illness Date of Service: 12/16/24 Requesting physician: Flores Harris Chief complaint: PNA Narrative: 69-year-old female presenting with shortness of breath ongoing for 14 days. She said she was having some sore throat 2. With these symptoms she presented to emergency department. A chest x-ray and CTA is suggestive of bilateral infiltrates with question about pneumonitis versus congestive heart failure. Her BNP was elevated and she was given some diuretics. She is denying any symptoms currently. She is saying her breathing has improved significantly. She is on antibiotics for pneumonia. No chest discomfort. Overall improving clinically. [facility] Past Medical History Medical History Allergic conjunctivitis and rhinitis Difficulty sleeping Lip numbness Numbness of fingers Osteoporosis Hypercholesterolemia Generalized anxiety disorder Pulmonary nodules COPD (chronic obstructive pulmonary disease) Personal history of nicotine dependence Vitamin B12 deficiency Diverticulosis Insomnia Osteoporosis Family History Family History Daughter Hx of cervical cancer Father Family hx of prostate cancer Mother Myocardial infarct Maternal Aunt Pancreatic cancer, Onset Age: 55 Surgical History Surgical History History of left breast biopsy History of colonoscopy Social History Social History Household Members: Spouse Housing: Apartment Alcohol intake: current Alcohol intake frequency: holidays/special occasions only Patient Tobacco Use Status: Never used Tobacco Tobacco use type: Cigarette Cigarettes Per Day: 4 Years Smoked: 17 years Smoked in Last 30 Days: Yes e-Cigarette/Vaping Use: Never Used Second Hand Smoke Exposure: Yes Use of substances other than those prescribed or required for medical reasons: No Advance Directives: No Advance Directives Information Provided: No Do you have a plan to hurt others: No Plan Nutrition Risks: No Nutritional Risk service: No Current occupational status: retired Current occupational exposures/hazards: No Cognitive needs: No Hearing needs: No Vision needs: Yes (Glasses) Travel History Ebola Risk: Travel/Contact With Anyone From Affected Area/s: No Has Patient Experienced Ebola Symptoms: No Meds Allergies Allergy/AdvReac Type Severity Reaction Status Date / Time No Known Allergies Allergy Verified 12/15/24 19:35 [No Known Allergies*] Active Medications: Current Medications Acetaminophen (Acetaminophen 325 Mg Tablet) 650 mg PO Q6H PRN PRN Reason: Pain, Mild 1-3,fever,headache Albuterol/Ipratropium (Albuterol/Iprat 2.5/0.5mg 3 Ml Ampul.Neb) 3 ml INHALE Q4H PRN PRN Reason: Shortness of Breath/Wheezing Benzonatate (Benzonatate 100 Mg Capsule) 100 mg PO TID PRN PRN Reason: Cough Calcium Carbonate (Calcium Carbonate 750 Mg Tab.Chew) 750 mg PO Q4H PRN PRN Reason: Heartburn Ceftriaxone Sodium (Ceftriaxone Sodium 1 Gm Vial) 1 gm IVPUSH Q24H [facility] Enoxaparin Sodium (Enoxaparin Sodium 40 Mg/0.4 Ml Syringe) 40 mg SUBCUT Q24H [facility] Last Admin: 12/16/24 09:21 Dose: 40 mg Azithromycin 500 mg/ Sodium (Chloride) 250 mls @ 125 mls/hr IV Q24H [facility] Magnesium Hydroxide (Milk Of Magnesia 30 Ml Oral.Susp) 30 ml PO DAILY PRN PRN Reason: Constipation Melatonin (Melatonin 3 Mg Tablet) 6 mg PO BEDTIME PRN PRN Reason: Insomnia Methylprednisolone Sodium Succinate (Methylprednisolone Sod Succ 125 Mg/2 Ml Vial) 60 mg IVPUSH Q12H [facility] Last Admin: 12/16/24 09:21 Dose: 60 mg Nicotine (Nicotine 14 Mg Patch.Td24) 14 mg TRANSDERMA DAILY [facility] Last Admin: 12/16/24 09:22 Dose: 14 mg Ondansetron HCl (Ondansetron Hcl 4 Mg/2 Ml Vial) 4 mg IVPUSH Q8H PRN PRN Reason: Nausea and Vomiting Senna (Sennosides 8.6 Mg Tablet) 17.2 mg PO BEDTIME [facility] Sodium Chloride (0.9 % Sodium Chloride Flush 3 Ml Syringe) 3 ml IVFLUSH QSHIFT [facility] Last Admin: 12/16/24 09:20 Dose: 3 ml Home Medications ?Medication ?Instructions ?Recorded ?Confirmed ?Last Taken ?Type alendronate 70 mg tablet 70 mg PO MO 12/16/24 12/16/24 12/08/24 History diclofenac sodium 1 % topical gel 4 g topical QID PRN Pain 12/16/24 12/16/24 Unknown History (Voltaren Arthritis Pain) nicotine 14 mg/24 hr daily 1 patch transdermal DAILY PRN 12/16/24 12/16/24 12/15/24 History transdermal patch Smoking Cessation Physical Exam 2 Vital Signs: Vital Signs: Last Vital Signs Temp 97.2 F 12/16/24 08:21 Pulse 105 H 12/16/24 08:21 Resp 25 H 12/16/24 08:21 BP 116/72 12/16/24 08:21 Pulse Ox 97 12/16/24 08:21 O2 Del Method Room Air 12/16/24 08:21 BMI result Body Mass Index 28.9 GENERAL APPEARANCE: in no acute distress, pleasant. NECK: no carotid bruit, no jugular venous distention. SKIN: no suspicious lesions, warm and dry. HEART: no murmurs, regular rate and rhythm. LUNGS: clear to auscultation bilaterally. ABDOMEN: soft, nontender. EXTREMITIES: no edema. PERIPHERAL PULSES: equal. NEUROLOGIC: No gross deficits, AAO X 3 Objective Labs and Meds 12/16/24 04:07 12/16/24 04:07 Lab results: Laboratory Results - last 24 hr 12/15/24 12/15/24 12/15/24 19:48 19:57 20:24 WBC 8.7 RBC 4.23 Hgb 13.2 Hct 38.6 MCV 91.3 MCH 31.2 MCHC 34.2 RDW 14.7 Plt Count 196 D MPV 12.0 Immature Gran % (Auto) 0.3 Neut % (Auto) 50.5 Lymph % (Auto) 41.5 H Mora % (Auto) 6.7 Eos % (Auto) 0.7 Baso % (Auto) 0.3 Lymph # (Auto) 3.6 Mora # (Auto) 0.6 Eos # (Auto) 0.1 Baso # (Auto) 0.0 Abs Immat Gran (auto) 0.03 Absolute Neuts (auto) 4.4 Absolute Nucleated RBC 0.000 Nucleated RBC % (auto) 0.0 VBG pH VBG pCO2 VBG pO2 VBG HCO3 VBG O2 Saturation VBG Base Excess Sodium 137 Potassium 4.2 Chloride 103 Carbon Dioxide 22 Anion Gap 16 BUN 13 Creatinine 1.07 Estim Creat Clear Calc 38.9 Estimated GFR 51 Random Glucose 106 Lactic Acid 1.2 Calcium 8.7 Magnesium Total Bilirubin 0.4 AST 22 ALT 11 Alkaline Phosphatase 123 H Troponin I High Sens 25.3 H B-Natriuretic Peptide 916 H Total Protein 7.5 Albumin 4.1 TSH Urine Color Yellow Urine Appearance Clear Urine pH 5.5 Ur Specific Enterprise 1.025 Urine Protein 30 (1+) H Urine Glucose (UA) Negative Urine Ketones Trace Urine Blood Negative Urine Nitrite Negative Ur Leukocyte Esterase Negative Urine RBC 0-2 Urine WBC 0-5 Ur Squamous Epith Cells 3-5 Urine Bacteria None Seen Hyaline Casts 0-2 Influenza Type A (PCR) NEGATIVE Influenza Type B (PCR) NEGATIVE RSV RNA Qual (PCR) NEGATIVE SARS-CoV-2 RNA (RT-PCR) NEGATIVE 12/15/24 12/15/24 12/16/24 20:33 23:44 04:07 WBC 7.6 RBC 4.18 L Hgb 13.0 Hct 38.4 MCV 91.9 MCH 31.1 MCHC 33.9 RDW 14.9 Plt Count 178 MPV 12.4 H Immature Gran % (Auto) 0.4 Neut % (Auto) 76.1 H Lymph % (Auto) 20.8 Mora % (Auto) 2.4 Eos % (Auto) 0.0 Baso % (Auto) 0.3 Lymph # (Auto) 1.6 Mora # (Auto) 0.2 Eos # (Auto) 0.0 Baso # (Auto) 0.0 Abs Immat Gran (auto) 0.03 Absolute Neuts (auto) 5.8 Absolute Nucleated RBC 0.000 Nucleated RBC % (auto) 0.0 VBG pH 7.41 VBG pCO2 44 VBG pO2 30 VBG HCO3 28 H VBG O2 Saturation 37.0 VBG Base Excess 3.5 Sodium 138 Potassium 3.7 Chloride 108 Carbon Dioxide 18 L Anion Gap 16 BUN 13 Creatinine 0.90 Estim Creat Clear Calc 46.3 Estimated GFR > 60 Random Glucose 183 H Lactic Acid Calcium 8.3 L Magnesium 1.9 Total Bilirubin 0.3 AST 29 ALT 14 Alkaline Phosphatase 121 H Troponin I High Sens 25.6 H B-Natriuretic Peptide Total Protein 7.5 Albumin 3.9 TSH 0.91 Urine Color Urine Appearance Urine pH Ur Specific Enterprise Urine Protein Urine Glucose (UA) Urine Ketones Urine Blood Urine Nitrite Ur Leukocyte Esterase Urine RBC Urine WBC Ur Squamous Epith Cells Urine Bacteria Hyaline Casts Influenza Type A (PCR) Influenza Type B (PCR) RSV RNA Qual (PCR) SARS-CoV-2 RNA (RT-PCR) Assessment and Plan (1) New onset of congestive heart failure: Status: Acute Plan Pleasant 69 year female with mild congestive heart failure in the setting of pneumonia/pneumonitis. Overall she is improving with antibiotics and gentle diuresis. I do not think she needs regular doses of Lasix currently. She should monitor her weights daily at home and if she has 2-3 lb weight gain acutely or 1-2 days then we can consider low-dose diuretics. It is quite common to develop congestive heart failure in the setting of infections. Overall she appears to be fairly stable and feeling better and I think we do not need to do any aggressive changes in medications. Echocardiography to assess LV for any structural issues. Thank you for allowing me to participate in the care of your patient. Please feel free to contact me if you have any questions. Procedures Date of Service Date of Service: 12/16/24
--- NOTE | 2024-12-16 19:12 | PC.NURSE ---
this rn assumed care of pt, pt resting in stretcher, no acute distress noted, vss.
[2024-12-16] MEDS: Azithromycin 500 MG in 0.9 % Sodium Chloride 250 ML 125 MG IV (20:23)
[2024-12-16] MEDS: Sennosides 8.6 MG TABLET 17.2 MG PO (20:23)
[2024-12-16] MEDS: cefTRIAXone sodium 1 GM VIAL IVPUSH (20:23)
--- NOTE | 2024-12-16 20:26 | PC.NURSE ---
pt medicated per oct, tolerated well whole with water. pt offers no complaints at this time. antibiotics running.
--- NOTE | 2024-12-16 23:55 | PC.NURSE ---
rt at bedside placing pt on cpap for sleep at this time.
--- NOTE | 2024-12-17 00:58 | PC.NURSE ---
rt informed this rn that patient did not want cpap as she does not use it at home. dr. mitchell aware
[2024-12-17 06:00] VITALS: BMI 27.2
[2024-12-17 06:06] VITALS: BP 128/69; PULSE 97; RESP 16; TEMP 36.7; O2SAT 97
[2024-12-17] MEDS: 0.9 % Sodium Chloride Flush 3 ML SYRINGE IVFLUSH (07:16)
[2024-12-17] MEDS: Enoxaparin Sodium 40 MG/0.4 ML SYRINGE SUBCUT (07:16)
[2024-12-17 08:00] VITALS: BP 114/62; PULSE 87; RESP 18; TEMP 36.2; O2SAT 96
[2024-12-17 08:33] VITALS: BMI 27.2
[2024-12-17 08:55] LABS: B Type Natriuretic Peptide 440 pg/mL (<100)
[2024-12-17] MEDS: Nicotine 14 MG PATCH.TD24 TRANSDERMA (09:35)
[2024-12-17] MEDS: methylPREDNISolone Sod Succ 125 MG/2 ML VIAL 60 MG IVPUSH (09:36)
[2024-12-17] MEDS: Loratadine 10 MG TABLET PO (09:37)
[2024-12-17] MEDS: Sertraline HCL 50 MG TABLET PO (09:37)
--- NOTE | 2024-12-17 10:29 | PM.DS ---
DS: Providers Provider Date of Service: 12/17/24 Date of admission: 12/16/24 01:49 Date of discharge: 12/17/24 Primary care physician: Sofía Gallo MD Consults: 12/16/24 02:24 Consult to Cardiology Routine Consulting Provider: [facility] Reason for consultation: new onset CHF Has provider been notified: No DS: Diagnosis Discharge Diagnosis (1) New onset of congestive heart failure: Status: Acute DS: Summary Hospital Course Hospital Course: History and physical as per admitting provider. Patient is a 69-year-old female speaks and understands Mauritian with past medical history of COPD/emphysema, tobacco dependence, COVID-19, DEBRA on CPAP, hyperlipidemia, depression/generalized anxiety disorder, osteoporosis presents to the emergency department via urgent care for cough x2 weeks. Patient noted a fever at home highest 101.6. Max temp in the ED was 102.4. No evidence of hypoxia this emergency room visit. Patient was 95% at the urgent care center on room air. Patient currently has no leukocytosis. Patient meets the criteria for sepsis based on fever, mild tachycardia and positive evidence of pneumonia/ pneumonitis. COPD exacerbation /Emphysema and new onset CHF with a BNP of 900 and possible pulmonary edema also concerning. Patient currently denies any chest pain, shortness of breath at rest but does report mild shortness of breath with exertion. Patient states she has been feeling weakness and fatigue for at least the last week. Patient normally follows with a olericulture professor for her emphysema and continues to smoke 3-4 cigarettes per day and as of today would like to quit. In the emergency room patient was started on methylprednisolone, ceftriaxone and azithromycin and Tylenol for fever. BC X2 pending. UA neg for UTI. Patient currently on room air with a sat of 94%. Fever has resolved. All viral studies were negative. 69-year-old woman treated for pneumonia, asthma exacerbation without sepsis or hypoxia. Delete patient thought to have elevated BNP and was given 1 dose of Lasix however seen evaluated by Cardiology who did not feel this was related to fluid overload. Patient was treated with Rocephin and azithromycin as well as IV Solu-Medrol and scheduled DuoNebs. She will be discharged home to complete antibiotic treatment and short prednisone burst. Patient has not required oxygen. She will be discharged home with family. Obstructive sleep apnea. Continue CPAP Tobacco dependent. Discussed importance of smoking cessation Time Attestation Discharge Coordination Time (in mins): 40 Quality: Safe Use of Opioids Does Pt have an Active Cancer Diagnosis on the Problem List?: No Quality: Stroke Does the patient have a stroke diagnosis?: No Physical Exam Vital Signs: Vital Signs: Last Vital Signs Temp 97.1 F 12/17/24 08:00 Pulse 87 12/17/24 08:00 Resp 18 12/17/24 08:00 BP 114/62 12/17/24 08:00 Pulse Ox 96 12/17/24 08:00 O2 Del Method Room Air 12/17/24 08:00 BMI result Body Mass Index 27.2 Appearing in no acute distress head is normocephalic atraumatic eyes pupils are PERRLA sclera is anicteric mouth throat mucous membranes are intact and moist neck is supple no lymphadenopathy, no JVD noted lung sounds are clear to auscultation heart regular rate rhythm, clear S1, S2 positive bowel sounds, abdomen is soft, nontender neuro patient is alert x3, no focal deficits DS: Data Data Completed and Pending Labs on day of discharge: Laboratory Results - last 24 hr 12/17/24 08:13 B-Natriuretic Peptide 440 H Preliminary micro results at discharge 12/15/24 19:57 Blood Culture - Preliminary Blood - Venous No growth after 24 hours. 12/15/24 19:48 Blood Culture - Preliminary Blood - Venous No growth after 24 hours. Discharge Plan Discharge Anticipated Discharge Date/Time: 12/17/24 10:25 Patient Disposition: Home, Self-Care Discharge Diagnosis: Community-acquired pneumonia Asthma exacerbation Referrals: Po,Sofía Villaseñor MD [Primary Care Provider] - 1 Week Discharge Medications: New cefuroxime axetil 500 mg tablet 500 mg PO BID Qty: 8 0RF azithromycin 500 mg tablet 500 mg PO DAILY 4 Days Qty: 4 0RF prednisone 10 mg tablet 40 mg PO DIRECTED Qty: 16 0RF Rx Instructions: Take 40 mg daily for 4 days Continued albuterol sulfate 90 mcg/actuation HFA aerosol inhaler 2 inh inhalation Q6H PRN (Reason: shortness of breath or wheezing) 30 Days Qty: 18 3RF ipratropium-albuterol 0.5 mg-3 mg(2.5 mg base)/3 mL solution for nebulization 3 ml inhalation Q6H PRN (Reason: wheezing) Qty: 180 3RF loperamide 2 mg capsule 2 mg PO QID PRN (Reason: loose stool) Qty: 14 0RF alendronate 70 mg tablet 70 mg PO MO Rx Instructions: every Sunday diclofenac sodium [Voltaren Arthritis Pain] 1 % gel 4 g topical QID PRN (Reason: Pain) Rx Instructions: apply to single knee, ankle, foot; for foot includes sole/toes/top of foot nicotine 14 mg/24 hr patch 24 hour 1 patch transdermal DAILY PRN (Reason: Smoking Cessation) fluticasone propionate [Flonase Allergy Relief] 50 mcg/actuation spray,suspension 1 spray intranasal DAILY Qty: 16 3RF Rx Instructions: administer into each nostril Zyrtec 10 mg capsule 10 mg PO DAILY Qty: 90 1RF Rx Instructions: Do not use Hydroxyzine when taking this medication. cholecalciferol (vitamin D3) [Vitamin D3] 50 mcg (2,000 unit) capsule 50 mcg PO DAILY Qty: 90 0RF hydroxyzine HCl 25 mg tablet 25 mg PO BEDTIME PRN (Reason: itching) Qty: 30 0RF mecobalamin (vitamin B12) 1,000 mcg tablet,disintegrating 1,000 mcg sublingual DAILY 30 Days Qty: 30 3RF Rx Instructions: place tablet under tongue and allow to dissolve for at least30 secs before swallowing melatonin 3 mg tablet 3 mg PO BEDTIME PRN (Reason: sleep) Qty: 30 0RF sertraline 50 mg tablet 50 mg PO DAILY Qty: 90 1RF hydrocortisone [Proctosol HC] 2.5 % cream with perineal applicator 1 appl ID BID PRN (Reason: hemorrhoids) Qty: 30 0RF Discharge Orders: Discharge Order (Routine); Ordered 12/17/24 Ordered By: Flores Harris Diet: Advance to usual diet Activity on Discharge: As tolerated Stand Alone Forms: Patient Portal Discharge page Print Language: Mauritian Care Plan Goals: Complete antibiotic and steroid Health Concerns: Community-acquired pneumonia Asthma exacerbation Plan of Treatment: Follow up with primary care provider as needed Take all medications as prescribed Assessment: See discharge summary
--- NOTE | 2024-12-17 10:31 | MHC.CM.PN ---
[facility], she will go home via family transport, plan is self care.
== END 2024-12-17 11:49 | disposition home or self-care (01) | DRG 190 ==
LOC: HO.ED 12-16 01:57 → HO.EDOVER 12-16 02:01 → HO.IMC 12-17 06:52
PROVIDERS: Admitting Provider Nurse Practitioner Family; Emergency Provider Emergency Medicine; PCP Internal Medicine; Visit Provider Nurse Practitioner Acute Care
DX: J43.9 Emphysema, unspecified (principal); J18.9 Pneumonia, unspecified organism; J45.901 Unspecified asthma with (acute) exacerbation; G47.33 Obstructive sleep apnea (adult) (pediatric); F17.210 Nicotine dependence, cigarettes, uncomplicated; Z71.6 Tobacco abuse counseling; Z20.822 Contact with and (suspected) exposure to COVID-19; Z79.51 Long term (current) use of inhaled steroids; Z79.899 Other long term (current) drug therapy
CPT/HCPCS: 0241U; 36415; 71045; 71250; 80053; 81001; 82803; 83605; 83735; 83880; 84443; 84484; 85025; 87040; 93005; 93306; 99285; J0456; J0696; J1650; J1938; J2919

== ENCOUNTER → 2024-12-15 19:35 | Outpatient (BNV) | payer MEDICARE, SELFPAY | PROVIDERS: Admitting Provider Nurse Practitioner Family; Emergency Provider Emergency Medicine; PCP Internal Medicine; Visit Provider Internal Medicine Cardiovascular Disease | DX: R00.0 Tachycardia, unspecified (principal) | CPT/HCPCS: 93010 ==

== ENCOUNTER → 2024-12-15 19:40 | Outpatient (BNV) | payer MEDICARE, SELFPAY | PROVIDERS: Emergency Provider Emergency Medicine; PCP Internal Medicine; Visit Provider Radiology Neuroradiology | DX: J98.11 Atelectasis (principal) | CPT/HCPCS: 71045 ==

== ENCOUNTER → 2024-12-16 00:01 | Outpatient (BNV) | payer MEDICARE, SELFPAY | PROVIDERS: Admitting Provider Nurse Practitioner Family; Emergency Provider Emergency Medicine; PCP Internal Medicine; Visit Provider Radiology Neuroradiology | DX: J43.9 Emphysema, unspecified (principal) | CPT/HCPCS: 71250 ==

== ENCOUNTER → 2024-12-16 01:49 | Outpatient (BNV) | payer MEDICARE, SELFPAY | PROVIDERS: Admitting Provider Nurse Practitioner Family; Emergency Provider Emergency Medicine; PCP Internal Medicine; Visit Provider Nurse Practitioner Family | DX: J18.9 Pneumonia, unspecified organism (principal) | CPT/HCPCS: 99222; 99499 ==

== ENCOUNTER → 2024-12-16 01:49 | Outpatient (BNV) | payer MEDICARE, SELFPAY | PROVIDERS: Admitting Provider Nurse Practitioner Family; Emergency Provider Emergency Medicine; PCP Internal Medicine; Visit Provider Internal Medicine Cardiovascular Disease | DX: I50.9 Heart failure, unspecified (principal) | CPT/HCPCS: 93010; 99222 ==

== ENCOUNTER 2024-12-26 15:26 | Outpatient (AMB) | payer MEDICARE, SELFPAY ==
--- NOTE | 2024-12-26 15:29 | A.OFFPC_ITS ---
Vital Signs 12/26/24 15:31 Height 4 ft 11 in Weight 132 lb 4 oz BMI 26.7 BP 110/62 Blood Pressure Location Lt brachial Position Sitting Pulse 86 Pulse Source Pulse Oximeter Temp 97.1 F Temp Source Temporal Artery Scan Pulse Oximetry (%) 96 Oxygen Delivery Method Room Air Intake Visit Reasons: TCM [facility] 12/17 Pneumonia Intake Note: Patient is here for hospital discharge and TCM follow up. Patient was discharged from [facility] on 12/17/24. Alto Singer Required: No Perianesthesia Rn: Present Accompanied by: Grand Child Allergies No Known Allergies [No Known Allergies*] Allergy (Verified 12/26/24 15:31) Tobacco use date assessed: 12/26/24 Fall risk assessment: No Falls in past year Last assessed Fall Risk: 12/26/24 Dental Screening Dental Screen Date: 11/05/24 HPI TCM TCM Information Date of Discharge 12/17/24 Discharged From [facility] Interactive Contact Date (Reference documentation from this date) 12/22/24 HPI Comments History of Present Illness Details 69 y/o Female patient who presents to [facility] today for HDF. Past medical history of COPD/emphysema, tobacco dependence, COVID-19, DEBRA on CPAP, hyperlipidemia, depression/generalized anxiety disorder, and osteoporosis. Pt was admitted to [facility] on 12/16 - 12/17 for COPD exacerbation /Emphysema and new onset CHF with a BNP of 900. Patient follows with a Journalism Internship for her emphysema and stopped smoking, currently using Nicotine patch. Pt's daughter reports that patient has been very forgetful and has noticed changes in her memory. Daughter asking for Neurology referral for patient. [facility] Medical History (Updated 12/26/24 @ 16:02 by Megan Melara NP) Memory changes Oral thrush COPD with acute exacerbation Community acquired bacterial pneumonia Allergic conjunctivitis and rhinitis Difficulty sleeping Lip numbness Numbness of fingers Osteoporosis Hypercholesterolemia Generalized anxiety disorder Pulmonary nodules COPD (chronic obstructive pulmonary disease) Personal history of nicotine dependence Vitamin B12 deficiency Diverticulosis Insomnia Osteoporosis Surgical History History of left breast biopsy History of colonoscopy Family History Daughter Hx of cervical cancer Father Family hx of prostate cancer Mother Myocardial infarct Maternal Aunt Pancreatic cancer, Onset Age: 55 Social History (Updated 12/26/24 @ 15:36 by LINA Lamb) Household Members: Family Housing: House Do you presently have visiting nurse or other home services: No Alcohol intake: current Alcohol intake frequency: holidays/special occasions only Patient Tobacco Use Status: Former Tobacco user Tobacco use type: Cigarette Cigarette Packs Per Day: 0.5 Cigarettes Per Day: 4 Years Smoked: 17 years Packs Per Year: 0 Packs per year/per ci.00 e-Cigarette/Vaping Use: Never Used Second Hand Smoke Exposure: Yes service: No Current occupational status: retired Current occupational exposures/hazards: No Cognitive needs: No Hearing needs: No Vision needs: Yes (Glasses) Questionnaire Thrive Questionnaire Date Thrive assessed: 12/16/24 MAN-7 AMB Questionnaire MAN-7 Date MAN - 7 assessed: 11/05/24 Source: Developed by Drs. Leobardo Campos, Charlene Stoll, Syed Burk and colleagues, with an educational guera from [employer]. Review of Systems Const All systems reviewed & are unremarkable except as noted in HPI and below Physical exam (Primary Care) Vital Signs: Last Vital Signs Temp 97.1 F 12/26/24 15:31 Pulse 86 12/26/24 15:31 BP 110/62 12/26/24 15:31 Pulse Ox 96 12/26/24 15:31 Oxygen Delivery Method Room Air 12/26/24 15:31 BMI result Body Mass Index 26.7 Tobacco/Smoking Status: Tobacco use Status Tobacco use date assessed 12/26/24 12/26/24 15:37 Patient Tobacco Use Status Former Tobacco user 12/26/24 15:37 Tobacco use type Cigarette 12/26/24 15:37 e-Cigarette/Vaping Use Never Used 12/26/24 15:37 Thrive Assessment: Date of Thrive Assessment Date Thrive assessed 12/16/24 12/26/24 15:37 Const General: comfortable and no acute distress Nutritional Appearance: well nourished Orientation/consciousness: patient oriented x3 HENMT Head: Yes normocephalic Ears: external ears normal, TM abnormal obstructed by cerumen bilateral and unable to visualize TM bilaterally General nose exam: Normal external nose present Face and sinus: Yes sinuses nontender Mouth: tongue abnormal with white coating Neuro General: patient oriented x3 Coding Level of Care Code TCM Mod MDM <= 14 Days Diagnoses Community acquired bacterial pneumonia J15.9 COPD with acute exacerbation J44.1 Oral thrush B37.0 Memory changes R41.3 Time Spent (min) 20 Assessment & Plan Assessment & Plan (1) Community acquired bacterial pneumonia: Code(s): J15.9 - Unspecified bacterial pneumonia Category: Medical Plan: Stable, recovering Ordered cough medicine. (2) COPD with acute exacerbation: Code(s): J44.1 - Chronic obstructive pulmonary disease with (acute) exacerbation Category: Medical Plan: Stable, recovering at home. Ordered cough medicine (3) Oral thrush: Code(s): B37.0 - Candidal stomatitis Category: Medical Plan: Ordered Nystatin Mouth Wash. Advised to rinse mouth immediately after using Inhaler. (4) Memory changes: Code(s): R41.3 - Other amnesia Category: Medical Plan: Placed referral to Neurology as requested by Daughter. Orders: Referrals Neurology Referral R41.3 - Other amnesia Medications: New benzonatate 200 mg (2 x 100 mg) PO BID 60 caps 0RF J15.9 - Unspecified bacterial pneumonia, J44.1 - Chronic obstructive pulmonary disease with (acute) exacerbation nystatin swish in the mouth and retain for as long as possible (several minutes) before swallowing. 1 mL PO QID 40 mL 0RF 10 days B37.0 - Candidal stomatitis Discontinued loperamide Discontinued Reason: Patient Completed Course 2 mg PO QID PRN 14 caps 0RF loose stool
[2024-12-26 15:31] VITALS: BP 110/62; PULSE 86; TEMP 36.2; O2SAT 96; BMI 26.7
== END 2024-12-26 16:01 | disposition home or self-care (01) ==
LOC: HO.HMCH 15:27
PROVIDERS: PCP Internal Medicine; Visit Provider Nurse Practitioner Family
DX: J15.9 Unspecified bacterial pneumonia (principal); J44.1 Chronic obstructive pulmonary disease with (acute) exacerbation; B37.0 Candidal stomatitis; R41.3 Other amnesia

== ENCOUNTER → 2024-12-26 15:26 | Outpatient (BNVA) | payer MEDICARE, SELFPAY | PROVIDERS: PCP Internal Medicine; Visit Provider Nurse Practitioner Family | DX: J15.9 Unspecified bacterial pneumonia (principal); J44.1 Chronic obstructive pulmonary disease with (acute) exacerbation; B37.0 Candidal stomatitis; R41.3 Other amnesia | CPT/HCPCS: 99495 ==

== ENCOUNTER 2025-01-23 13:43 | Outpatient (REF) | payer MEDICARE, SELFPAY ==
[2025-01-23 15:16] LABS: MANUAL DIFF FLAG NO
[2025-01-23 15:41] LABS: Basophils Absolute Auto 0.1 X10*3/uL (0.0-0.2); Basophils Percent Auto 0.6 % (0-2); Eosinophils Absolute Auto 0.7 X10*3/uL (0.0-0.4); Eosinophils Percent Auto 7.7 % (0-4); Hematocrit 42.7 % (37.0-47.0); Hemoglobin 14.2 g/dl (12.0-16.0); Imm Gran Abs Auto 0.01 X10*3/uL (0.00-0.03); Imm Gran Pct Auto 0.1 % (0.0-0.4); Lymphocytes Absolute Auto 4.6 X10*3/uL (1.2-4.9); Lymphocytes Percent Auto 54.3 % (20-40); Mean Corpuscular HGB Conc 33.3 g/dl (31.0-35.0); Mean Corpuscular Hemoglobin 30.4 pg (27.0-33.0); Mean Corpuscular Volume 91.4 fL (80.0-98.0); Mean Platelet Volume 10.6 fL (9.4-12.3); Monocytes Absolute Auto 0.5 X10*3/uL (0.1-1.2); Monocytes Percent Auto 6.4 % (2-11); Neutrophils Absolute Auto 2.6 x10*3/uL (2.0-8.3); Neutrophils Percent Auto 30.9 % (45-73); Platelet Count 300 X10*3/uL (160-400); Red Blood Count 4.67 X10*6/uL (4.20-5.50); Red Cell Distribution Width 15.5 % (11.0-16.0); White Blood Count 8.5 X10*3/uL (4.8-10.8)
[2025-01-23 15:52] LABS: Estimated Average Glucose 126 mg/dL
[2025-01-23 16:09] LABS: B Type Natriuretic Peptide 96 pg/mL (<100)
[2025-01-23 16:38] LABS: Folate 7.7 ng/mL (> or = 4.0); Vitamin B12 757 pg/mL (200-900)
[2025-01-23 18:05] LABS: Alanine Aminotransferase 17 U/L (0-31); Albumin Level 4.3 g/dL (3.5-5.0); Anion Gap 13 (12-20); Aspartate Amino Transferase 23 U/L (5-31); Bilirubin Total 0.4 mg/dL (0.0-1.0); Blood Urea Nitrogen 9 mg/dL (9-16); Calcium 9.4 mg/dL (8.4-10.2); Carbon Dioxide 25 mmol/L (22-29); Chloride 106 mmol/L (96-108); Cholesterol 180 mg/dL (<200); Estimated Glomerular Filt Rate 52; Glucose Random 96 mg/dL (60-115); HDL Cholesterol 46 mg/dL (>40); LDL Cholesterol Calculated 95 mg/dL (<100); Magnesium 1.8 mg/dL (1.6-2.6); Sodium 140 mmol/L (135-145); Total Protein 7.1 g/dL (6.5-8.0); Triglycerides 198 mg/dL (<150)
[2025-01-23 18:26] LABS: Free T4 (Free Thyroxine) 1.01 ng/dL (0.71-1.85); Thyroid Stimulating Hormone 1.26 uIU/mL (0.32-4.0); Vitamin D 25-OH Total 33.5 ng/mL (>30)
[2025-01-23 18:50] LABS: Alkaline Phosphatase 140 U/L (39-117)
== END 2025-01-23 13:44 | disposition home or self-care (01) ==
LOC: HO.LAB 13:43
PROVIDERS: PCP Internal Medicine; Visit Provider Internal Medicine
DX: I42.9 Cardiomyopathy, unspecified (principal); I11.0 Hypertensive heart disease with heart failure; I50.9 Heart failure, unspecified; R73.02 Impaired glucose tolerance (oral); E78.00 Pure hypercholesterolemia, unspecified; J41.8 Mixed simple and mucopurulent chronic bronchitis; F41.1 Generalized anxiety disorder; R19.7 Diarrhea, unspecified; Z72.0 Tobacco use
CPT/HCPCS: 36415; 80053; 80061; 82306; 82607; 82746; 83036; 83735; 83880; 84439; 84443; 85025; 96127; 99212

== ENCOUNTER 2025-01-23 13:43 | Outpatient (AMB) | payer MEDICARE, SELFPAY ==
[2025-01-23 13:45] VITALS: BP 110/78; PULSE 94; O2SAT 97; BMI 24.7
--- NOTE | 2025-01-23 13:45 | MHC.PC.OV ---
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: No Accompanied by: Grand Child Allergies No Known Allergies [No Known Allergies*] Allergy (Verified 01/23/25 13:54) Medication List - Last Reconciled 01/23/25 by Sofía Gallo MD albuterol sulfate 90 mcg/actuation 2 inhalations inhalation Q6H PRN 30 days cetirizine (Zyrtec) 10 mg PO DAILY cholecalciferol (vitamin D3) (Vitamin D3) 50 mcg PO DAILY diclofenac sodium 1% (Voltaren Arthritis Pain) 4 grams topical QID PRN hydroxyzine HCl 25 mg PO BEDTIME PRN ipratropium-albuterol 0.5 mg-3 mg(2.5 mg base)/3 mL 3 mL inhalation Q6H PRN mecobalamin (vitamin B12) 1,000 mcg sublingual DAILY 30 days melatonin 3 mg PO BEDTIME PRN nicotine 1 patch transdermal DAILY PRN sertraline 50 mg PO DAILY Tobacco use date assessed: 01/23/25 Fall risk assessment: No Falls in past year Last assessed Fall Risk: 01/23/25 Dental Screening Dental Screen Date: 01/23/25 Did you have a dental visit in the last 12 months?: No Did you have a dental problem in the last 6 months where you did not have access to dental care?: No Was dental information given to patient?: No [facility] Medical History (Updated 01/23/25 @ 14:21 by Sofía Gallo MD) Memory changes Oral thrush COPD with acute exacerbation Community acquired bacterial pneumonia Allergic conjunctivitis and rhinitis Difficulty sleeping Lip numbness Numbness of fingers Osteoporosis Hypercholesterolemia Generalized anxiety disorder Pulmonary nodules COPD (chronic obstructive pulmonary disease) Personal history of nicotine dependence Vitamin B12 deficiency Diverticulosis Insomnia Osteoporosis Surgical History History of left breast biopsy History of colonoscopy Family History Daughter Hx of cervical cancer Father Family hx of prostate cancer Mother Myocardial infarct Maternal Aunt Pancreatic cancer, Onset Age: 55 Social History Household Members: Family Housing: House Do you presently have visiting nurse or other home services: No Alcohol intake: current Alcohol intake frequency: holidays/special occasions only Patient Tobacco Use Status: Tobacco use Unknown Tobacco use type: Cigarette Cigarette Packs Per Day: 0.5 Cigarettes Per Day: 4 Years Smoked: 17 years e-Cigarette/Vaping Use: Never Used Second Hand Smoke Exposure: Yes service: No Current occupational status: retired Current occupational exposures/hazards: No Cognitive needs: No Hearing needs: No Vision needs: Yes (Glasses) Questionnaire PHQ-9 Over the last 2 weeks, how often have you been bothered by any of the following problems? 1. Little interest or pleasure in doing things: nearly every day 2. Feeling down, depressed, or hopeless: more than half the days 3. Trouble falling or staying asleep, or sleeping too much: nearly every day 4. Feeling tired or having little energy: nearly every day 5. Poor appetite or overeating: nearly every day 6. Feeling bad about yourself - or that you are a failure or have let yourself or your family down: several days 7. Trouble concentrating on things, such as reading the newspaper or watching television: several days 8. Moving or speaking so slowly that other people could have noticed. Or the opposite - being so fidgety or restless that you have been moving around a lot more than usual: not at all 9. Thoughts that you would be better off or of hurting yourself in some way: not at all Total score: 16 Depression Screening Interpretation: Positive Depression Screening Done: Yes 01442 - PHQ-9 Billing: Yes Source: Developed by Drs. Leobardo Campos, Charlene Stoll, Syed Burk and colleagues, with an educational guera from [employer]. Thrive Questionnaire Date Thrive assessed: 01/23/25 I am a: Patient What is your living situation today?: I have a steady place to live Within the past 12 months, did the food you bought not last and you didn't have the money to get more?: Never true Within the past 12 months, did you worry whether your food would run out before you got money to buy more?: Never true Do you have trouble paying for medicines?: No Do you have trouble getting transportation to medical appointments?: No Do you have trouble paying your heating and electricity bill?: No Do you have trouble taking care of your child, family member or friend?: No Do you have trouble with day-to-day activities such as bathing, preparing meals, shopping, managing finances, etc.?: No Are you currently unemployed and looking for a job?: No Are you interested in more education?: No Please select the resources that you would like help with: Care for elder or disabled and Daily support Currently or been in a relationship where the following occur: No concerns reported THRIVE Score: 0 AUDIT C Alcohol Use Questionnaire (AUDIT-C) 1. How often do you have a drink containing alcohol?: Monthly or less 2. How many drinks containing alcohol do you have on a typical day when you are drinking?: 1 or 2 3. How often do you have six or more drinks on one occasion?: Never Total Score: 1 MAN-7 AMB Questionnaire MAN-7 Date MAN - 7 assessed: 01/23/25 Feeling nervous, anxious, or on edge: 1 = Several days Not being able to stop or control worryin = Not at all Worrying too much about different things: 1 = Several days Trouble relaxin = Several days Being so restless that it is hard to sit still: 0 = Not at all Becoming easily annoyed or irritable: 0 = Not at all Feeling afraid as if something awful might happen: 0 = Not at all Total MAN-7 score (0-4 normal; 5-9 mild; 10-14 moderate; 15-21 severe): 3 Source: Developed by Drs. Leobardo Campos, Charlene Stoll, Syed Burk and colleagues, with an educational guera from [employer]. MAN-7 Assessment Billing MAN-7 Assessment Tool: MAN-7 Assessment 12781 Physical exam (Primary Care) Vital Signs: Last Vital Signs Pulse 94 01/23/25 13:45 BP 110/78 01/23/25 13:45 Pulse Ox 97 01/23/25 13:45 Oxygen Delivery Method Room Air 01/23/25 13:45 BMI result Body Mass Index 24.7 Tobacco/Smoking Status: Tobacco use Status Tobacco use date assessed 01/23/25 01/23/25 13:59 Patient Tobacco Use Status Tobacco use Unknown 01/23/25 13:59 Tobacco use type Cigarette 01/23/25 13:59 e-Cigarette/Vaping Use Never Used 01/23/25 13:59 PHQ-9: PHQ-9 Score PHQ-9: Total score 16 01/23/25 17:29 Depression Screening Interpretation: Positive Thrive Assessment: Date of Thrive Assessment Date Thrive assessed 01/23/25 01/23/25 13:59 Currently or been in a relationship where the following occur: No concerns reported Const General: alert; No acute distress Eyes Conjunctivae: conjunctivae normal Resp Auscultation: clear to auscultation bilaterally Cardio Rate: regular rate Rhythm: regular rhythm GI Inspection: Yes normal to inspection Extrem General: Yes normal to inspection and No edema Coding Level of Care Code Est Pt Level 4 (97479) Complex EM visit Add On G2211 Diagnoses Cardiomyopathy I42.9 Tobacco abuse Z72.0 Congestive heart failure I50.9 Impaired glucose tolerance R73.02 Hypercholesterolemia E78.00 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 Advised to get Cardiology evaluation (2) Tobacco abuse: Comment: still smoking 08/2023, enrolled in the lung cancer screening July 2024- stopped 11/2024 Code(s): Z72.0 - Tobacco use Category: Medical Plan: Patient is strongly advised to stop smoking. stopped 11/2024 (3) Congestive heart failure: Code(s): I50.9 - Heart failure, unspecified Category: Medical Plan: Weigh daily and discussion about congestive heart failure (4) Impaired glucose tolerance: Code(s): R73.02 - Impaired glucose tolerance (oral) Category: Medical Plan: Decrease the amount of carbohydrate intake, pasta, bread, rice and potatoes are all sugar and that is aside from all the sweet stuff, remember that fruits are good but they are Sweet also. (5) Hypercholesterolemia: Code(s): E78.00 - Pure hypercholesterolemia, unspecified Category: Medical Plan: Avoid fried foods, chicken skin, eggs, butter margarine, pastries and meat. Be it pork or beef they have a lot of cholesterol LDL goal of less than 100 and triglyceride of less than 150 (6) COPD (chronic obstructive pulmonary disease): Comment: still smoking 4 a day Code(s): J44.9 - Chronic obstructive pulmonary disease, unspecified Category: Medical Qualifiers: COPD type: chronic bronchitis Chronic bronchitis type: mixed simple and mucopurulent Qualified Code(s): J41.8 - Mixed simple and mucopurulent chronic bronchitis Plan: Patient has advised strongly to stop smoking on albuterol inhaler (7) Generalized anxiety disorder: Code(s): F41.1 - Generalized anxiety disorder Category: Medical Plan: Continue with present medication (8) Diarrhea: Code(s): R19.7 - Diarrhea, unspecified Category: Medical (9) Diarrhea: Code(s): R19.7 - Diarrhea, unspecified Category: Medical Plan History of Present Illness The patient is a 69-year-old female presenting with a follow-up for multiple chronic conditions and recent hospitalization for pneumonia. She reports ongoing gastrointestinal issues including persistent diarrhea, vomiting, and significant weight loss following her discharge. Among her medical history, she has COPD, osteoporosis, hypertension, and hypercholesterolemia. Her chronic cough has improved following her recent smoking cessation using nicotine patches. An echocardiogram revealed cardiomyopathy with a notably low ejection fraction of 35-40%, contributing to concerns about congestive heart failure. Her recent laboratory workup showed a stable complete blood count and basic metabolic panel, though her blood sugar was elevated. Her most recent cholesterol screening indicated an LDL level of 149 mg/dL. She has been generally compliant with her medications but awaits a discontinuation in using Melatonin. Discussions included management of potential C. difficile infection and ongoing monitoring for her cardiovascular issues. A neurology and cardiology referral is in progress to address these health concerns further. Health Maintenance - Mammogram: Up to date - Bone density: Up to date - Colonoscopy: Up to date - Recent lab results: Normal complete blood count, normal electrolytes, normal renal function, elevated blood sugar at 183 mg/dL, LDL of 149 mg/dL - Regular use of Albuterol for COPD - Advisement on smoking cessation strategies and nicotine replacement therapy - Discussion on low sodium diet and the importance of proper hydration Social History - Lives with her , but her daughter, a manager social responsibility, also assists in her care - Smoked since age 12, recently quit after hospitalization using nicotine patches - Reports limited physical activity due to hospitalization recovery and ongoing symptoms - Primarily consumes canned chicken noodle soup due to gastrointestinal upset - Experiences significant withdrawal symptoms after cessation of smoking Review of Systems - Constitutional: Reports weight loss - Respiratory: Reports past frequent coughing, now improved - Gastrointestinal: Reports persistent diarrhea and vomiting - Neurological: Denies any substantial neurological symptoms - Cardiovascular: Reports existing diagnosis of cardiomyopathy, denies current symptoms suggestive of acute heart failure Physical Exam - Gastrointestinal- Abdomen not noisy; no pain on examination - Respiratory- Improved cough with smoking cessation - Cardiovascular- No abnormal findings reported during the exam Results - Labs: Normal blood count, elevated blood sugar of 183 mg/dL, LDL cholesterol at 149 mg/dL - Imaging: Echocardiogram showing left ventricular ejection fraction of 35-40% - Previous BNP was 900, corrected to 440 Plan Efforts focus on managing chronic conditions and following up post-hospitalization impacts. For cardiomyopathy and heart failure concerns, I am arranging a cardiology evaluation for further management. The nicotine patch will be increased to help with smoking cessation. Cholesterol management continues, aiming for an LDL below 100 mg/dL. Gastrointestinal symptoms suggest possible C. difficile infection; stool testing and supportive care are planned. Regular follow-ups and lab assessments will monitor her condition. Referral for neurology is in progress, with adjusted contact details for timely follow-up. Dietary recommendations continue with low sodium intake and hydration emphasized. Patient was informed and verbally consented to the use of an ambient scribe for clinic note documentation during this visit. Discussion Notes I discussed the need to follow up on her cardiovascular status with a printing specialist, given her reduced ejection fraction and history of congestive heart failure symptoms. I advised an increase in nicotine patch dosage to 21 mg to assist with smoking cessation and to reduce withdrawal symptoms. Ongoing management for hypercholesterolemia aims to reach an LDL target of under 100 mg/dL. The gastrointestinal symptoms may relate to possible infection; stool testing is recommended. I emphasize low sodium dietary intake and fluid balance, with rehydration solutions to avoid electrolyte imbalance. We discussed the necessary neurology referral to address any neurological concerns. Follow-up blood work to monitor various parameters will be scheduled. Patient and family have been informed about appropriate dietary choices, hydration, and the importance of continued smoking cessation support. Patient Instructions - Continue using the nicotine patches as directed to stop smoking - Follow up with cardiology for ejection fraction concerns - Use stool testing if diarrhea persists, follow dietary advice, and stay hydrated - Continue taking prescribed medications - Maintain low sodium diet, avoid canned soups - Schedule regular follow-up and blood work to monitor your health - Follow up with neurology to address any nerve issues - Contact with any changes in health or concerns Orders: Orders CDiff Gene PCR Today R19.7 - Diarrhea, unspecified Comprehensive Met. Panel Today I50.9 - Heart failure, unspecified Complete Blood Count Auto Diff Today I50.9 - Heart failure, unspecified Thyroid Stimulating Hormone Today I50.9 - Heart failure, unspecified UA CC w/rflx Micro + Cult Today I50.9 - Heart failure, unspecified, R30.0 - Dysuria Hemoglobin A1c Today I50.9 - Heart failure, unspecified XR chest 2V Today I42.9 - Cardiomyopathy, unspecified Leukocytes Stool Qualitative Today R19.7 - Diarrhea, unspecified B Type Natriuretic Peptide Today I50.9 - Heart failure, unspecified Magnesium Today I50.9 - Heart failure, unspecified Free T4 (Free Thyroxine) Today I50.9 - Heart failure, unspecified Referrals Cardiology Referral I42.9 - Cardiomyopathy, unspecified Neurology Referral R20.0 - Anesthesia of skin Medications: New ondansetron 4 mg PO Q8H PRN 20 tabs 0RF nausea and vomiting 30 days R19.7 - Diarrhea, unspecified Changed From melatonin 3 mg PO BEDTIME PRN 30 tabs 0RF sleep I42.9 - Cardiomyopathy, unspecified To melatonin 10 mg PO BEDTIME PRN 90 tabs 1RF sleep I42.9 - Cardiomyopathy, unspecified
== END 2025-01-23 14:30 | disposition home or self-care (01) ==
LOC: HO.HMCH 13:44
PROVIDERS: PCP Internal Medicine; Visit Provider Internal Medicine
DX: I42.9 Cardiomyopathy, unspecified (principal); I50.9 Heart failure, unspecified; J41.8 Mixed simple and mucopurulent chronic bronchitis; Z72.0 Tobacco use; R73.02 Impaired glucose tolerance (oral); E78.00 Pure hypercholesterolemia, unspecified; F41.1 Generalized anxiety disorder; R19.7 Diarrhea, unspecified

== ENCOUNTER 2025-02-03 14:56 | Outpatient (AMB) | payer MEDICARE, SELFPAY ==
--- NOTE | 2025-02-03 15:00 | A.OFFVIS_ITS ---
Vital Signs 02/03/25 15:02 Height 4 ft 11 in Weight 124 lb 8 oz BMI 25.1 BP 130/86 Blood Pressure Location Rt brachial Position Sitting Pulse 84 Pulse Source Pulse Oximeter Pulse Oximetry (%) 95 Oxygen Delivery Method Room Air Intake Visit Reasons: chronic bronchitis Allergies No Known Allergies (No Known Allergies*) Allergy (Verified 02/03/25 15:04) HPI HPI chronic bronchitis: Details: Brittany is a pleasant 69 year old female, former 54 pack year smoker, recently quit 1 month ago with underlying COPD, chronic bronchitis, pulmonary nodules and osteoporosis. At baseline she was moderately controlled on Trelegy however dicontinued, unclear reasoning. She continues to use albuterol MDI BID with suboptimal effect. Since the last visit, she was admitted to [facility] with pneumonia and new onset CHF. She presented to the ED 12/16 with fever 102 and worsening dyspnea on exertion. BNP 900 and question of pulmonary edema. Respiratory panel and BC x [address] revealed bilateral pulmonary opacities, ultimately treated for pneumonia with methylprednisolone, ceftriaxone and azithromycin and Tylenol for fever. She was also given lasix in the ED with improvements. Cardiology was consulted and felt CHF excerbation as related to PNA, no need for outpatient lasix. Upon discharge received azithromycin, cefuroxime and prednisone. Since discharge on 12/17, patient reports significant improvements and feels back to baseline, never required supplemental oxygen during hospitalization. She also stopped smoking about 1 month ago using NRT. There was also note of DEBRA, however patient reports not consistently using CPAP therapy because she has not had recent testing to confirm continued need. [facility] Medical History (Updated 02/04/25 @ 08:51 by Amparo Hubbard NP) Memory changes Oral thrush COPD with acute exacerbation Community acquired bacterial pneumonia Allergic conjunctivitis and rhinitis Difficulty sleeping Lip numbness Numbness of fingers Osteoporosis Hypercholesterolemia Generalized anxiety disorder Pulmonary nodules COPD (chronic obstructive pulmonary disease) Personal history of nicotine dependence Vitamin B12 deficiency Diverticulosis Insomnia Osteoporosis Surgical History History of left breast biopsy History of colonoscopy Family History Daughter Hx of cervical cancer Father Family hx of prostate cancer Mother Myocardial infarct Maternal Aunt Pancreatic cancer, Onset Age: 55 Social History (Updated 02/03/25 @ 15:04 by Mery Fiore CMA) Household Members: Family Housing: House Do you presently have visiting nurse or other home services: No Alcohol intake: current Alcohol intake frequency: holidays/special occasions only Patient Tobacco Use Status: Former Tobacco user Tobacco use type: Cigarette Cigarette Packs Per Day: 0.5 Cigarettes Per Day: 4 Years Smoked: 17 years e-Cigarette/Vaping Use: Never Used Second Hand Smoke Exposure: Yes service: No Current occupational status: retired Current occupational exposures/hazards: No Cognitive needs: No Hearing needs: No Vision needs: Yes (Glasses) Review of Systems Const Denies chills, Denies excessive sweating, Denies fever(s), Denies headache(s) and Denies night sweats Eyes Denies dry eyes, Denies irritation and Denies itchy eyes ENT Reports Normal hearing present, Denies headache(s), Denies nasal congestion, Denies nasal discharge, Denies post nasal drip and Denies sore throat Card Denies chest pain, Denies chest pain at rest, Denies chest pain with activity, Denies claudication, Denies leg edema, Denies dyspnea, Denies dyspnea on exertion, Denies orthopnea and Denies paroxysmal nocturnal dyspnea Resp Denies chest congestion, Denies cough, Denies excessive phlegm production, Denies pain on inspiration, Denies pain with cough, Denies dyspnea, Denies dyspnea on exertion, Denies stridor and Denies wheezing Musc Denies myalgias Neuro Reports Normal hearing present and Denies headache(s) Endo Denies excessive sweating Alex/Lymph Denies lymphadenopathy Aller/Immun Denies itchy eyes, Denies seasonal rhinorrhea and Denies wheezing Physical Exam Vital Signs: Last Vital Signs Pulse 84 02/03/25 15:02 BP 130/86 02/03/25 15:02 Pulse Ox 95 02/03/25 15:02 Oxygen Delivery Method Room Air 02/03/25 15:02 BMI result Body Mass Index 25.1 Const General: cooperative, healthy appearing, comfortable, no acute distress, well d eveloped and alert Orientation/consciousness: patient oriented x3 Limitations: no limitations HEENT Head: Yes normal to inspection, Yes normocephalic and Yes atraumatic Ears: hearing grossly normal bilaterally and external ears normal Eyes General: appearance normal, both eyes and all related structures Eyelids: Yes eyelids normal Sclerae: sclerae normal EOM: EOMs intact bilaterally Neck Neck: Yes normal visual inspection and Yes no lymphadenopathy Lymphatic: no lymphadenopathy noted Chest Chest palpation & inspection: normal inspection of the chest Resp Effort & Inspection: normal respiratory effort, able to speak in complete sentences, no audible wheezes, no cough, no stridor, not tachypneic, no tripod positioning and no use of accessory muscles Auscultation: clear to auscultation bilaterally Cardio Jugular venous distension: no JVD Rate: regular rate Rhythm: regular rhythm Skin Other: warm, dry General skin exam: no rashes or lesions noted Neuro General: patient oriented x3 Cranial nerves: Yes Normal hearing present Cognition (Neuro): normal cognition Gait exam (Neuro): Normal gait present Extrem General: Yes normal to inspection, Yes capillary refill normal, Yes no clubbing, cyanosis or edema and Yes no pedal edema Psych Appearance: grossly normal and well kempt Speech and movement: Normal speech and movement present and Clear speech present Affect: normal affect Attitude: cooperative Thought process: Normal thought process present Thought content: Normal thought content present Insight: Good insight present (Psych) Judgement: Good judgement present (Psych) Results Reviewed Results Reviewed: [address] [address] [address] Scan Report Signed Patient: Brittany Harris MR#: [id number] : 1955 Acct:[id number] Age/Sex: 69 / F ADM Date: 12/15/24 Loc: .ED Attending Dr: Ordering Physician: Amparo Shay MD Date of Service: 12/16/24 Procedure(s): CT chest wo IV con Accession Number(s): [id number] cc: Amparo Shay MD; Sofía Gallo MD~ Report Number: [id number]: Total DLP = 215.00 mGy-cm CLINICAL HISTORY: fever, cough, elevated BNP CT chest without contrast Comparison: Chest x-ray from 12/15/2024. Findings: Bilateral pulmonary opacities are nonspecific and can be seen with pulmonary edema and pneumonitis. These are superimposed on chronic lung disease given moderate to marked multifocal emphysematous changes mild bilateral peripheral scarring. Trace left pleural effusion present. No pneumothorax. Multiple mediastinal lymph nodes are nonspecific by noncontrast CT with right paratracheal measuring 7 mm short axis (imaged 40 of series 5). Vascular calcifications are multifocal including aorta, its branches, and coronary arteries. Small hiatal hernia. Mild mediastinal fluid. Mixed density of the diminutive thyroid without enlarged nodule or nodule greater than [address] Mild rib deformities appear old/chronic. Degenerative changes include imaged spine. Mild/minimal vertebral height losses appear old/chronic. Multiple hemangiomas and Schmorl's nodes noted. Facet arthropathy including mid and lower thoracic spine. IMPRESSION: 1. Mild bilateral pulmonary opacities are nonspecific and can be seen with pulmonary edema and pneumonitis. 2. Emphysematous changes again noted. 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 Will send for repeat CXR to assess for resolution of PNA. She has cardiology evaluation in May, not maintained on lasix at this time, as HF thought to be related to infectious process. She has a prior history of DEBRA, testing performed years ago and continues with significant daytime fatigue. Will send for home sleep study. She continues to use albuterol MDI BID, previously on Trelegy with good effect however this was discontinued. She was agreeable to restart ICS/LABA. Applauded patient for smoking cessation and she is motivated to continue. All questions were were answered and patient is in agreement of plan. Will follow-up in 2-3 months or sooner if needed. Orders: Orders XR chest 2V 02/03/25 Z87.01 - Personal history of pneumonia (recurrent) RT home sleep study Today R40.0 - Somnolence Medications: New fluticasone furoate-vilanterol 200-25 mcg/dose (Breo Ellipta) 1 inh inhalation DAILY 60 ea 4RF Coding Level of Care Code Est Pt Level 4 (96375) Complex EM visit Add On G2211 Diagnoses Mixed simple and mucopurulent chronic bronchitis J41.8 COPD type: chronic bronchitis Chronic bronchitis type: mixed simple and mucopurulent Pulmonary nodules R91.8
[2025-02-03 15:02] VITALS: BP 130/86; PULSE 84; O2SAT 95; BMI 25.1
== END 2025-02-03 15:32 | disposition home or self-care (01) ==
LOC: HO.HPSW 14:57
PROVIDERS: PCP Internal Medicine; Visit Provider Nurse Practitioner Family
DX: J41.8 Mixed simple and mucopurulent chronic bronchitis (principal); R91.8 Other nonspecific abnormal finding of lung field
CPT/HCPCS: 99214; G2211

== ENCOUNTER → 2025-02-03 14:56 | Outpatient (BNVA) | payer MEDICARE, SELFPAY | PROVIDERS: PCP Internal Medicine; Visit Provider Nurse Practitioner Family | DX: J41.8 Mixed simple and mucopurulent chronic bronchitis (principal); R91.8 Other nonspecific abnormal finding of lung field | CPT/HCPCS: 99212 ==

== ENCOUNTER 2025-02-05 11:42 | Outpatient (REF) | payer MEDICARE, SELFPAY ==
[2025-02-05 11:50] LABS: Appearance Urine Cloudy; Color Urine Yellow; Glucose Urine UA Negative (Negative); Leukocyte Esterase Urine Negative (Negative); Nitrite Urine Negative (Negative); Urine Blood Negative (Negative); Urine Ketones Negative (Negative); Urine Protein Negative (Neg-Trace)
[2025-02-05 12:35] LABS: CDiff Gene PCR NEGATIVE (Negative)
[2025-02-05 14:00] LABS: Leukocytes Stool Qualitative NEGATIVE (NEGATIVE)
== END 2025-02-05 11:43 | disposition home or self-care (01) ==
LOC: HO.LNP 11:42
PROVIDERS: Visit Provider Internal Medicine
DX: I50.9 Heart failure, unspecified (principal); R30.0 Dysuria; R19.7 Diarrhea, unspecified
CPT/HCPCS: 81003; 87493; 89055

== ENCOUNTER 2025-03-05 14:47 | Outpatient (AMB) | payer MEDICARE, SELFPAY ==
--- NOTE | 2025-03-05 14:54 | A.OFFVIS_ITS ---
Intake Visit Reasons: amnesia Allergies No Known Allergies (No Known Allergies*) Allergy (Verified 02/03/25 15:04) Medication List - Last Reconciled 03/05/25 by Nakul Ledesma MD albuterol sulfate 90 mcg/actuation 2 inhalations inhalation Q6H PRN 30 days cetirizine (Zyrtec) 10 mg PO DAILY cholecalciferol (vitamin D3) (Vitamin D3) 50 mcg PO DAILY diclofenac sodium 1% (Voltaren Arthritis Pain) 4 grams topical QID PRN fluticasone furoate-vilanterol 200-25 mcg/dose (Breo Ellipta) 1 inh inhalation DAILY hydroxyzine HCl 25 mg PO BEDTIME PRN ipratropium-albuterol 0.5 mg-3 mg(2.5 mg base)/3 mL 3 mL inhalation Q6H PRN mecobalamin (vitamin B12) 1,000 mcg sublingual DAILY 30 days melatonin 10 mg PO BEDTIME PRN nicotine 1 patch transdermal DAILY PRN ondansetron 4 mg PO Q8H PRN 30 days sertraline 50 mg PO DAILY HPI Comments Details: The patient is a 70-year-old female presenting with forgetfulness and cognitive decline. Cognitive issues have reportedly been noticed for about a year by family, significantly impacting routine activities such as cooking and laundry. The patient has experienced weight loss soon after hospitalization for pneumonia, although congestive heart failure was ruled out during that time. She has also been withdrawing from tobacco for three months. Symptom fluctuation in memory and cognition has been reported, without severe worsening. Notably, slurred speech and confusion after an outing raise the possibility of a cerebrovascular event. Despite insomnia, no aggravated anxiety was reported. 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 [facility] Medical History (Updated 03/05/25 @ 15:20 by Nakul Ledesma MD) Amnesia Memory changes Oral thrush COPD with acute exacerbation Community acquired bacterial pneumonia Allergic conjunctivitis and rhinitis Difficulty sleeping Lip numbness Numbness of fingers Osteoporosis Hypercholesterolemia Generalized anxiety disorder Pulmonary nodules COPD (chronic obstructive pulmonary disease) Personal history of nicotine dependence Vitamin B12 deficiency Diverticulosis Insomnia Osteoporosis Surgical History History of left breast biopsy History of colonoscopy Family History Daughter Hx of cervical cancer Father Family hx of prostate cancer Mother Myocardial infarct Maternal Aunt Pancreatic cancer, Onset Age: 55 Social History (Updated 02/03/25 @ 15:04 by Mery Fiore [facility]) Household Members: Family Housing: House Do you presently have visiting nurse or other home services: No Alcohol intake: current Alcohol intake frequency: holidays/special occasions only Patient Tobacco Use Status: Former Tobacco user Tobacco use type: Cigarette Cigarette Packs Per Day: 0.5 Cigarettes Per Day: 4 Years Smoked: 17 years e-Cigarette/Vaping Use: Never Used Second Hand Smoke Exposure: Yes service: No Current occupational status: retired Current occupational exposures/hazards: No Cognitive needs: No Hearing needs: No Vision needs: Yes (Glasses) Review of Systems Const Details: - General: Reports significant weight loss, fatigue. - Neurological: Reports forgetfulness and cognitive deficits; no headaches. - Respiratory: Denies current respiratory symptoms; history of pneumonia. - Psychiatric: Reports stress and insomnia; denies anxiety or nervousness. - Genitourinary: Reports bladder incontinence. - Gastrointestinal: Reports vomiting post-hospitalization. - Endocrine: Type 1 Diabetes Mellitus; denies other systemic endocrine symptoms. Physical Exam Neuro Other: Mental Status: - Appearance: Engages with conversation despite forgetfulness. - Sensorium & Orientation: Mild disorientation to time noted; difficulty with spellings and memory recall. - Intellect / Cognition: Memory recall challenged; difficulty with calculation. Cranial Nerves: CN II: Visual vee full to confrontation, visual acuity intact. CN III, IV, : Pupils equal, round, reactive to light and accommodation. Extraocular movements are normal. CN V: Facial sensation is normal. CN VII: Facial movements symmetrical. CN VIII: Hearing intact to bedside conversation is normal. CN IX, X: Palate elevates symmetrically. CN XI: Shoulder shrug and head turn symmetrical. CN XII: Tongue midline without atrophy or fasciculations. Motor: Bulk and tone normal in all extremities. No significant muscle weakness in arms and legs. No drift. Reflexes: Deep tendon reflexes 2+ and symmetric. Plantar response down-going bilaterally. Coordination: [id number] and [id number]-vc-[id number] testing normal. No dysmetria. Gait and Station: No obvious gait abnormality. No ataxia or instability. Sensory: Intact to light touch, pinprick, and vibration. Romberg is negative. Extrapyramidal: Full facial expressions and blinking. No rigidity. Movements are appropriate with no tremor or abnormality. Speech: Normal; no dysarthria or tremor. Assessment & Plan Assessment & Plan (1) MCI (mild cognitive impairment): Code(s): G31.84 - Mild cognitive impairment of uncertain or unknown etiology Category: Medical Plan Impression: MCI with fair possibility of underlying Alzheimer +/- vascular disease Rec: a: MRI brain WO b: Abeta/tau testing for amyloid I discussed the likely cognitive impairments, including potential Alzheimer's or vascular cognitive issues considering the recent slurred speech incident. Orders: Orders MR head/brain w con Today G31.84 - Mild cognitive impairment of uncertain or unknown etiology ABeta 42/40 p-tau 217 Eval Today G31.84 - Mild cognitive impairment of uncertain or unknown etiology Coding Level of Care Code Est Pt Level 5 (79230) Diagnoses MCI (mild cognitive impairment) G31.84
== END 2025-03-05 15:30 | disposition home or self-care (01) ==
LOC: HO.HSM 14:48
PROVIDERS: PCP Internal Medicine; Visit Provider Psychiatry & Neurology Neurology
DX: G31.84 Mild cognitive impairment of uncertain or unknown etiology (principal)
CPT/HCPCS: 99214

== ENCOUNTER 2025-03-05 14:47 | Outpatient (REF) | payer MEDICARE, SELFPAY ==
--- NOTE | ~2025-03-05 | XR_ITS ---
EXAMINATION: XR CHEST CLINICAL INFORMATION: Z87.01 - Personal history of pneumonia (recurrent) COMPARISON: December 15, 2024 TECHNIQUE: 2 views of the chest were obtained. FINDINGS: Lungs are mildly hyperinflated with coarse interstitial markings. Lungs are clear. There is no pleural effusion. Heart size is within normal limits. XR/XR chest 2V IMPRESSION: No acute disease Electronically signed by: Silvio Blanchard MD 03/05/2025 05:24 PM EDT
[2025-03-18 19:27] LABS: ABETA 42/40 Ratio 0.181 (> OR = 0.170); Alzeheimer's Interpretation Low Likelihood; Alzeimer's Disease Score 0.1100; Tau protein phosphorylated 217 0.24 pg/mL (< OR = 0.15)
== END 2025-03-05 14:48 | disposition home or self-care (01) ==
LOC: HO.LAB 14:47
PROVIDERS: Absent Provider Internal Medicine; PCP Internal Medicine; Referring Provider Nurse Practitioner Family; Visit Provider Psychiatry & Neurology Neurology
DX: G31.84 Mild cognitive impairment of uncertain or unknown etiology (principal); Z87.01 Personal history of pneumonia (recurrent)
CPT/HCPCS: 36415; 71046; 82233; 82234; 84393; 99212

== ENCOUNTER → 2025-03-05 15:50 | Outpatient (BNV) | payer MEDICARE, SELFPAY | PROVIDERS: Absent Provider Internal Medicine; PCP Internal Medicine; Referring Provider Nurse Practitioner Family; Visit Provider Radiology Diagnostic Radiology | DX: Z87.01 Personal history of pneumonia (recurrent) (principal) | CPT/HCPCS: 71046 ==

== ENCOUNTER → 2025-03-22 09:15 | Outpatient (BNV) | payer MEDICARE, SELFPAY | PROVIDERS: PCP Internal Medicine; Visit Provider Radiology Diagnostic Radiology | DX: I67.82 Cerebral ischemia (principal) | CPT/HCPCS: 70551 ==

== ENCOUNTER 2025-03-22 09:16 | Outpatient (REF) | payer MEDICARE, SELFPAY ==
--- NOTE | ~2025-03-22 | MR_ITS ---
CLINICAL HISTORY: G31.84 - Mild cognitive impairment of uncertain or unknown etiology Exam: MRI brain without IV contrast Comparison: None Findings: No abnormal diffusion restriction to suggest acute ischemia. No acute intracranial hemorrhage, mass, midline shift or hydrocephalus. Encephalomalacia with adjacent gliosis of the left posterior temporal lobe, most likely sequela of prior ischemic infarct. Moderate to advanced supratentorial patchy subcortical and nearly confluence periventricular white matter signals, mild white matter signals of the central sunil, non-specific, most frequently ascribed to chronic small vessel ischemic disease. Age-appropriate global atrophy. Preserved signal voids of major intracranial vasculature. Orbital contents, paranasal sinuses, mastoid air cells are unremarkable. Unremarkable osseous structures and extracranial soft tissue. Impression: 1. No acute intracranial finding. 2. 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 3. Chronic small vessel ischemic disease. This document has been electronically signed by: Nery Martínez MD on 03/24/2025 11:11:48
== END 2025-03-22 09:17 | disposition home or self-care (01) ==
LOC: HO.MRI 09:16
PROVIDERS: PCP Internal Medicine; Visit Provider Psychiatry & Neurology Neurology
DX: G31.84 Mild cognitive impairment of uncertain or unknown etiology (principal)
CPT/HCPCS: 70551

== ENCOUNTER 2025-03-31 15:07 | Outpatient (AMB) | payer MEDICARE, SELFPAY ==
--- NOTE | 2025-03-31 15:14 | A.OFFVIS_ITS ---
Vital Signs 03/31/25 15:15 Height 4 ft 11 in Weight 126 lb 6 oz BMI 25.5 BP 120/82 Blood Pressure Location Rt brachial Position Sitting Pulse 88 Pulse Source Pulse Oximeter Pulse Oximetry (%) 97 Oxygen Delivery Method Room Air Intake Visit Reasons: chronic bronchitis Allergies No Known Allergies (No Known Allergies*) Allergy (Verified 03/31/25 15:18) HPI HPI chronic bronchitis: Details: Brittany is a pleasant 69 year old female, former 54 pack year smoker, recently quit 2 months ago with underlying COPD, chronic bronchitis, pulmonary nodules and osteoporosis. Today she is accompanied by her daughter. Since the last visit, she reports moderate control of respiratory symptoms with the use of Breo, using albuterol MDI BID with good effect. She has been doing well with smoking cessation, previously using NRT however has discontinued two weeks ago and is motivated to continue. She denies any visits to urgent care or hospitalizations related to respiratory distress since the last visit. Prior Chest CT 11/[address] to be scheduled 11/2025. [facility] Medical History (Updated 03/31/25 @ 19:55 by Amparo Hubbard NP) Amnesia Memory changes Oral thrush COPD with acute exacerbation Community acquired bacterial pneumonia Allergic conjunctivitis and rhinitis Difficulty sleeping Lip numbness Numbness of fingers Osteoporosis Hypercholesterolemia Generalized anxiety disorder Pulmonary nodules COPD (chronic obstructive pulmonary disease) Personal history of nicotine dependence Vitamin B12 deficiency Diverticulosis Insomnia Osteoporosis Surgical History History of left breast biopsy History of colonoscopy Family History Daughter Hx of cervical cancer Father Family hx of prostate cancer Mother Myocardial infarct Maternal Aunt Pancreatic cancer, Onset Age: 55 Social History Household Members: Family Housing: House Do you presently have visiting nurse or other home services: No Alcohol intake: current Alcohol intake frequency: holidays/special occasions only Patient Tobacco Use Status: Former Tobacco user Tobacco use type: Cigarette Cigarette Packs Per Day: 0.5 Cigarettes Per Day: 4 Years Smoked: 17 years e-Cigarette/Vaping Use: Never Used Second Hand Smoke Exposure: Yes service: No Current occupational status: retired Current occupational exposures/hazards: No Cognitive needs: No Hearing needs: No Vision needs: Yes (Glasses) Review of Systems Const Denies chills, Denies excessive sweating, Denies fever(s), Denies headache(s) and Denies night sweats Eyes Denies dry eyes, Denies irritation and Denies itchy eyes ENT Reports Normal hearing present, Denies headache(s), Denies nasal congestion, Denies nasal discharge, Denies post nasal drip and Denies sore throat Card Denies chest pain, Denies chest pain at rest, Denies chest pain with activity, Denies claudication, Denies leg edema, Denies dyspnea, Denies orthopnea and Denies paroxysmal nocturnal dyspnea Resp Denies chest congestion, Denies excessive phlegm production, Denies pain on inspiration, Denies pain with cough, Denies dyspnea and Denies stridor Musc Denies myalgias Neuro Reports Normal hearing present and Denies headache(s) Endo Denies excessive sweating Alex/Lymph Denies lymphadenopathy Aller/Immun Denies itchy eyes and Denies seasonal rhinorrhea Physical Exam Vital Signs: Last Vital Signs Pulse 88 03/31/25 15:15 BP 120/82 03/31/25 15:15 Pulse Ox 97 03/31/25 15:15 Oxygen Delivery Method Room Air 03/31/25 15:15 BMI result Body Mass Index 25.5 Const General: cooperative, healthy appearing, comfortable, no acute distress, well developed and alert Orientation/consciousness: patient oriented x3 Limitations: no limitations HEENT Head: Yes normal to inspection, Yes normocephalic and Yes atraumatic Ears: hearing grossly normal bilaterally and external ears normal Eyes General: appearance normal, both eyes and all related structures Eyelids: Yes eyelids normal Sclerae: sclerae normal EOM: EOMs intact bilaterally Neck Neck: Yes normal visual inspection and Yes no lymphadenopathy Lymphatic: no lymphadenopathy noted Chest Chest palpation & inspection: normal inspection of the chest Resp Effort & Inspection: normal respiratory effort, able to speak in complete sentences, no audible wheezes, no cough, no stridor, not tachypneic, no tripod positioning and no use of accessory muscles Auscultation: clear to auscultation bilaterally Cardio Jugular venous distension: no JVD Rate: regular rate Rhythm: regular rhythm Skin Other: warm, dry General skin exam: no rashes or lesions noted Neuro General: patient oriented x3 Cranial nerves: Yes Normal hearing present Cognition (Neuro): normal cognition Gait exam (Neuro): Normal gait present Extrem General: Yes normal to inspection, Yes capillary refill normal, Yes no clubbing, cyanosis or edema and Yes no pedal edema Psych Appearance: grossly normal and well kempt Speech and movement: Normal speech and movement present and Clear speech present Affect: normal affect Attitude: cooperative Thought process: Normal thought process present Thought content: Normal thought content present Insight: Good insight present (Psych) Judgement: Good judgement present (Psych) Assessment & Plan Assessment & Plan (1) COPD (chronic obstructive pulmonary disease): Code(s): J44.9 - Chronic obstructive pulmonary disease, unspecified Category: Medical Qualifiers: COPD type: chronic bronchitis Chronic bronchitis type: mixed simple and mucopurulent Qualified Code(s): J41.8 - Mixed simple and mucopurulent chronic bronchitis (2) Pulmonary nodules: Code(s): R91.8 - Other nonspecific abnormal finding of lung field Category: Medical Plan Brittany reports suboptimal control with Breo continuing to use albuterol MDI BID, will switch to Trelegy. Will repeat chest CT in one year given smoking history, to be scheduled 11/2025. She has a prior history of DEBRA, testing performed years ago and continues with significant daytime fatigue, home sleep study scheduled for April. Applauded patient for smoking cessation and she is motivated to continue. All questions were were answered and patient is in agreement of plan. Will follow-up to review results or sooner if needed. Orders: Orders CT chest wo IV con 8 Months F17.210 - Nicotine dependence, cigarettes, uncomplicated Medications: New wcwxidqbexy-qskvzlckh-aqlnymlc 200-62.5-25 mcg (Trelegy Ellipta) 1 inh inhalation DAILY 60 ea 3RF Coding Level of Care Code Est Pt Level 4 (30054) Diagnoses Mixed simple and mucopurulent chronic bronchitis J41.8 COPD type: chronic bronchitis Chronic bronchitis type: mixed simple and mucopurulent Pulmonary nodules R91.8
[2025-03-31 15:15] VITALS: BP 120/82; PULSE 88; O2SAT 97; BMI 25.5
== END 2025-03-31 15:40 | disposition home or self-care (01) ==
LOC: HO.HPSW 15:08
PROVIDERS: PCP Internal Medicine; Visit Provider Nurse Practitioner Family
DX: J41.8 Mixed simple and mucopurulent chronic bronchitis (principal); R91.8 Other nonspecific abnormal finding of lung field
CPT/HCPCS: 99214

== ENCOUNTER → 2025-03-31 15:07 | Outpatient (BNVA) | payer MEDICARE, SELFPAY | PROVIDERS: PCP Internal Medicine; Visit Provider Nurse Practitioner Family | DX: J41.8 Mixed simple and mucopurulent chronic bronchitis (principal); R91.8 Other nonspecific abnormal finding of lung field; F17.210 Nicotine dependence, cigarettes, uncomplicated | CPT/HCPCS: 99212 ==

== ENCOUNTER 2025-04-22 10:14 | Outpatient (AMB) | payer MEDICARE, SELFPAY ==
[2025-04-22 10:30] VITALS: BP 136/72; PULSE 90; O2SAT 91; BMI 24.4
--- NOTE | 2025-04-22 10:30 | A.OFFPC_ITS ---
Vital Signs 04/22/25 10:30 Height 4 ft 11 in Weight 121 lb BMI 24.4 BP 136/72 Blood Pressure Location Lt brachial Position Sitting Pulse 90 Pulse Source Pulse Oximeter Pulse Oximetry (%) 91 L Oxygen Delivery Method Room Air Intake Visit Reasons: diarrhea/vomiting Allergies No Known Allergies (No Known Allergies*) Allergy (Verified 04/22/25 10:31) Medication List - Last Reconciled 04/22/25 by Sofía Gallo MD albuterol sulfate 90 mcg/actuation 2 inhalations inhalation Q6H PRN 30 days azithromycin (Zithromax) For 250 mg dose pack: take 500 mg today (day 1), then 250 mg for 4 days (days 2-5) PO cetirizine (Zyrtec) 10 mg PO DAILY cholecalciferol (vitamin D3) (Vitamin D3) 50 mcg PO DAILY diclofenac sodium 1% (Voltaren Arthritis Pain) 4 grams topical QID PRN juqljztqbda-zmjkdmlez-gkizsfdr 200-62.5-25 mcg (Trelegy Ellipta) 1 inh inhalation DAILY hydrocortisone 2.5% (Proctosol HC) 1 appl MN BID-QID PRN hydroxyzine HCl 25 mg PO BEDTIME PRN ipratropium-albuterol 0.5 mg-3 mg(2.5 mg base)/3 mL 3 mL inhalation Q6H PRN loperamide (Imodium A-D) 2 mg PO QID PRN mecobalamin (vitamin B12) 1,000 mcg sublingual DAILY 30 days melatonin 10 mg PO BEDTIME PRN ondansetron 4 mg PO Q8H PRN 30 days sertraline 50 mg PO DAILY Tobacco use date assessed: 01/23/25 Fall risk assessment: 2 + Falls in past year Last assessed Fall Risk: 04/22/25 Dental Screening Dental Screen Date: 01/23/25 HPI diarrhea/vomiting HPI Details cough productive - does have trelegy. started 2 week , no fevers, , no sore throat congestion PFSH Medical History (Updated 04/22/25 @ 11:06 by Sofía Gallo MD) Amnesia Memory changes Oral thrush COPD with acute exacerbation Community acquired bacterial pneumonia Allergic conjunctivitis and rhinitis Difficulty sleeping Lip numbness Numbness of fingers Osteoporosis Hypercholesterolemia Generalized anxiety disorder Pulmonary nodules COPD (chronic obstructive pulmonary disease) Personal history of nicotine dependence Vitamin B12 deficiency Diverticulosis Insomnia Osteoporosis Surgical History History of left breast biopsy History of colonoscopy Family History Daughter Hx of cervical cancer Father Family hx of prostate cancer Mother Myocardial infarct Maternal Aunt Pancreatic cancer, Onset Age: 55 Social History Household Members: Family Housing: House Do you presently have visiting nurse or other home services: No Alcohol intake: current Alcohol intake frequency: holidays/special occasions only Patient Tobacco Use Status: Former Tobacco user Tobacco use type: Cigarette Cigarette Packs Per Day: 0.5 Cigarettes Per Day: 4 Years Smoked: 17 years Packs Per Year: 0 Packs per year/per ci.00 e-Cigarette/Vaping Use: Never Used Second Hand Smoke Exposure: Yes service: No Current occupational status: retired Current occupational exposures/hazards: No Cognitive needs: No Hearing needs: No Vision needs: Yes (Glasses) Questionnaire PHQ-9 Over the last 2 weeks, how often have you been bothered by any of the following problems? 1. Little interest or pleasure in doing things: nearly every day 2. Feeling down, depressed, or hopeless: more than half the days 3. Trouble falling or staying asleep, or sleeping too much: nearly every day 4. Feeling tired or having little energy: nearly every day 5. Poor appetite or overeating: nearly every day 6. Feeling bad about yourself - or that you are a failure or have let yourself or your family down: several days 7. Trouble concentrating on things, such as reading the newspaper or watching television: several days 8. Moving or speaking so slowly that other people could have noticed. Or the opposite - being so fidgety or restless that you have been moving around a lot more than usual: not at all 9. Thoughts that you would be better off or of hurting yourself in some way: not at all Total score: 16 Depression Screening Interpretation: Positive Depression Screening Done: Yes Source: Developed by Drs. Leobardo Campos, Charlene Stoll, Syed Burk and colleagues, with an educational guera from [employer]. Thrive Questionnaire Date Thrive assessed: 04/22/25 I am a: Patient What is your living situation today?: I have a steady place to live Within the past 12 months, did the food you bought not last and you didn't have the money to get more?: Never true Within the past 12 months, did you worry whether your food would run out before you got money to buy more?: Never true Do you have trouble paying for medicines?: No Do you have trouble getting transportation to medical appointments?: No Do you have trouble paying your heating and electricity bill?: No Do you have trouble taking care of your child, family member or friend?: No Do you have trouble with day-to-day activities such as bathing, preparing meals, shopping, managing finances, etc.?: No Are you currently unemployed and looking for a job?: No Are you interested in more education?: No Currently or been in a relationship where the following occur: No concerns reported THRIVE Score: 0 AUDIT C Alcohol Use Questionnaire (AUDIT-C) 1. How often do you have a drink containing alcohol?: Monthly or less 2. How many drinks containing alcohol do you have on a typical day when you are drinking?: 1 or 2 3. How often do you have six or more drinks on one occasion?: Never Total Score: 1 MAN-7 AMB Questionnaire MAN-7 Date MAN - 7 assessed: 01/23/25 Source: Developed by Drs. Leobardo Campos, Charlene Stoll, Syed Burk and colleagues, with an educational guera from [employer]. Physical exam (Primary Care) Vital Signs: Last Vital Signs Pulse 90 04/22/25 10:30 BP 136/72 04/22/25 10:30 Pulse Ox 91 L 04/22/25 10:30 Oxygen Delivery Method Room Air 04/22/25 10:30 BMI result Body Mass Index 24.4 Tobacco/Smoking Status: Tobacco use Status Tobacco use date assessed 01/23/25 04/22/25 10:36 Patient Tobacco Use Status Former Tobacco user 04/22/25 10:36 Tobacco use type Cigarette 04/22/25 10:36 e-Cigarette/Vaping Use Never Used 04/22/25 10:36 PHQ-9: PHQ-9 Score PHQ-9: Total score 16 04/22/25 11:23 Depression Screening Interpretation: Positive Thrive Assessment: Date of Thrive Assessment Date Thrive assessed 04/22/25 04/22/25 10:36 Currently or been in a relationship where the following occur: No concerns reported Const General: alert; No acute distress Eyes Conjunctivae: conjunctivae normal Resp Auscultation: clear to auscultation bilaterally Cardio Rate: regular rate Rhythm: regular rhythm GI Inspection: Yes normal to inspection Extrem General: Yes normal to inspection and No edema Coding Level of Care Code Est Pt Level 4 (25267) Complex EM visit Add On G2211 Diagnoses Cardiomyopathy I42.9 Hypercholesterolemia E78.00 Impaired glucose tolerance R73.02 MCI (mild cognitive impairment) G31.84 Mixed simple and mucopurulent chronic bronchitis J41.8 COPD type: chronic bronchitis Chronic bronchitis type: mixed simple and mucopurulent Tobacco abuse Z72.0 Diarrhea R19.7 Cough R05.9 Hemorrhoid K64.9 Assessment & Plan Assessment & Plan (1) Cardiomyopathy: Comment: Echocardiogram November 2024Normal left ventricular cavity size. There is mildly increased left ventricular wall thickness. The left ventricular systolic function is mild to moderately decreased. The visually estimated ejection fraction is between 35-40%. - Elevated filling pressures. - Normal right ventricular cavity size and systolic function. Code(s): I42.9 - Cardiomyopathy, unspecified Category: Medical Plan: Patient has been referred to Cardiology (2) Hypercholesterolemia: Code(s): E78.00 - Pure hypercholesterolemia, unspecified Category: Medical Plan: Avoid fried foods, chicken skin, eggs, butter margarine, pastries and meat. Be it pork or beef they have a lot of cholesterol LDL goal of less than 70 and triglyceride of less than 150 (3) Impaired glucose tolerance: Code(s): R73.02 - Impaired glucose tolerance (oral) Category: Medical Plan: Decrease the amount of carbohydrate intake, pasta, bread, rice and potatoes are all sugar and that is aside from all the sweet stuff, remember that fruits are good but they are Sweet also. (4) MCI (mild cognitive impairment): Code(s): G31.84 - Mild cognitive impairment of uncertain or unknown etiology Category: Medical Plan: Patient has been sent to Neurology MRI done (5) COPD (chronic obstructive pulmonary disease): Code(s): J44.9 - Chronic obstructive pulmonary disease, unspecified Category: Medical Qualifiers: COPD type: chronic bronchitis Chronic bronchitis type: mixed simple and mucopurulent Qualified Code(s): J41.8 - Mixed simple and mucopurulent chronic b ronchitis Plan: Patient has been placed on Trelegy and albuterol inhaler (6) Tobacco abuse: Comment: still smoking 08/2023, enrolled in the lung cancer screening July 2024- stopped 11/2024 Code(s): Z72.0 - Tobacco use Category: Medical Plan: Continuing with lung cancer screening November 2025. Patient stop smoking November 2024 (7) Diarrhea: Code(s): R19.7 - Diarrhea, unspecified Category: Medical Plan: Keep well hydrated, referral to Gastroenterology done will send stools for testing (8) Cough: Code(s): R05.9 - Cough, unspecified Category: Medical (9) Hemorrhoid: Code(s): K64.9 - Unspecified hemorrhoids Category: Medical Plan: Three rules for constipation 1. Diet need to have a high fiber diet less of meat 2. Increase oral fluids 3. Exercise Plan History of Present Illness The patient is a 70-year-old female presenting with multiple chronic conditions including COPD, cognitive impairment, and gastrointestinal symptoms. The patient has a history of osteoporosis, with the last bone density scan conducted in May 2024. She is a former smoker with a diagnosis of COPD, specifically chronic bronchitis, and has been seen by pulmonary specialists. The patient has been using Breo and albuterol for management, but due to suboptimal control, her medication was switched to Trelegy. The patient has hypercholesterolemia with an LDL level of 95 mg/dL, which is above the target of less than 70 mg/dL for stroke and heart attack prevention. She also has a history of anxiety disorder and cardiomyopathy, with a recent echocardiogram showing a reduced ejection fraction of 35%. 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 The patient has been referred to neurology for further evaluation. The patient reports gastrointestinal symptoms, including diarrhea and vomiting, which have been intermittent since January. There has been a recent exacerbation over the past week and a half, with watery stools and a weight loss of 10 pounds. Stool testing and blood work have been ordered to investigate the cause, and a referral to a environmental health manager is planned. Health Maintenance - Bone density scan last conducted in May 2024 - Echocardiogram performed in November 2024 - MRI of the brain conducted in March 2023 - Chest CT scheduled for November 2025 - Lung cancer screening planned for November 2025 Social History - Former smoker, has stopped smoking as of November 2024 Review of Systems - Respiratory: Reports cough with phlegm, denies dyspnea, sore throat, or congestion - Gastrointestinal: Reports diarrhea and vomiting, denies abdominal pain - Neurological: Reports cognitive impairment, denies headaches or dizziness Physical Exam - Oral examination: No abnormalities noted - Abdominal examination: No pain on palpation - Respiratory examination: Presence of crackles, no acute distress Results - Labs: Normal blood count, electrolytes, renal function with creatinine 1.05, hemoglobin A1c 6.0, liver function normal - Imaging: MRI of the brain showed chronic small vessel ischemic disease and 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 1. Chronic Obstructive Pulmonary Disease (Copd) The patient has been diagnosed with COPD, specifically chronic bronchitis, and has been using Breo and albuterol for management. Due to suboptimal control, the medication was switched to Trelegy, and a chest CT is scheduled for November 2025 to monitor pulmonary nodules. 2. Cognitive Impairment The patient exhibits cognitive impairment with a Mini-Mental State Examination score of 27/30. 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 The patient has been referred to neurology for further evaluation. 3. Diarrhea And Vomiting The patient reports intermittent diarrhea and vomiting since January, with a recent exacerbation over the past week and a half. Stool testing and blood work have been ordered, and a referral to a environmental health manager is planned. The patient has been advised to hold off on dairy products and maintain a bland diet until further evaluation. 4. Hypercholesterolemia The patient has hypercholesterolemia with an LDL level of 95 mg/dL, which is above the target of less than 70 mg/dL for stroke and heart attack prevention. Dietary modifications have been discussed to help lower cholesterol levels. 5. Cardiomyopathy The patient has a history of cardiomyopathy with a recent echocardiogram showing a reduced ejection fraction of 35%. The patient has been referred to cardiology for further management. 6. Hemorrhoids The patient reports a history of hemorrhoids, and a topical cream has been prescribed for management. The patient has been advised to avoid straining during bowel movements and to use sitz baths as needed. Discussion Notes During the visit, we discussed the management of COPD, including the switch to Trelegy for better control and the upcoming chest CT to monitor pulmonary nodules. We also reviewed the patient's cognitive impairment, with plans for further evaluation by neurology and the significance of the MRI findings. The gastrointestinal symptoms were addressed with plans for stool testing, blood work, and a gastroenterology referral. Dietary modifications were advised for hypercholesterolemia, and the importance of maintaining a bland diet was emphasized due to the diarrhea. The patient was informed about the need to avoid dairy products temporarily and to use sitz baths for hemorrhoid management. Patient Instructions - Continue using Trelegy as prescribed for COPD management. - Attend scheduled chest CT in November 2025. - Follow up with neurology for cognitive impairment evaluation. - Undergo stool testing and blood work as ordered. - Maintain a bland diet and avoid dairy products until further notice. - Use sitz baths and apply prescribed cream for hemorrhoid relief. Orders: Orders Comprehensive Met. Panel Today R19.7 - Diarrhea, unspecified Magnesium Today R19.7 - Diarrhea, unspecified Leukocytes Stool Qualitative Today R19.7 - Diarrhea, unspecified Ova and Parasite Today R19.7 - Diarrhea, unspecified CDiff Gene PCR Today R19.7 - Diarrhea, unspecified B Type Natriuretic Peptide Today R19.7 - Diarrhea, unspecified Complete Blood Count Auto Diff Today R19.7 - Diarrhea, unspecified Thyroid Stimulating Hormone Today R19.7 - Diarrhea, unspecified Free T4 (Free Thyroxine) Today R19.7 - Diarrhea, unspecified Referrals Gastroenterology Referral R19.7 - Diarrhea, unspecified Medications: New loperamide (Imodium A-D) 2 mg PO QID PRN 20 tabs 0RF loose stool R19.7 - Diarrhea, unspecified azithromycin (Zithromax) For 250 mg dose pack: take 500 mg today (day 1), then 250 mg for 4 days (days 2-5) PO 6 tabs 0RF R19.7 - Diarrhea, unspecified hydrocortisone 2.5% (Proctosol HC) 1 appl MN BID-QID PRN 30 grams 1RF hemorrhoids R19.7 - Diarrhea, unspecified Discontinued fluticasone furoate-vilanterol 200-25 mcg/dose (George Riley) Discontinued Reason: Patient Completed Course 1 inh inhalation DAILY 60 ea 4RF
== END 2025-04-22 11:35 | disposition home or self-care (01) ==
LOC: HO.HMCH 10:15
PROVIDERS: PCP Internal Medicine; Visit Provider Internal Medicine
DX: J41.8 Mixed simple and mucopurulent chronic bronchitis (principal); I42.9 Cardiomyopathy, unspecified; E78.00 Pure hypercholesterolemia, unspecified; R73.02 Impaired glucose tolerance (oral); G31.84 Mild cognitive impairment of uncertain or unknown etiology; Z72.0 Tobacco use; R19.7 Diarrhea, unspecified; R05.9 Cough, unspecified; K64.9 Unspecified hemorrhoids

== ENCOUNTER 2025-04-22 10:14 | Outpatient (REF) | payer MEDICARE, SELFPAY ==
[2025-04-22 12:48] LABS: Hematocrit 39.2 % (37.0-47.0); Hemoglobin 12.7 g/dl (12.0-16.0); Imm Gran Abs Auto 0.02 X10*3/uL (0.00-0.03); Imm Gran Pct Auto 0.2 % (0.0-0.4); Lymphocytes Absolute Auto 5.4 X10*3/uL (1.2-4.9); MANUAL DIFF FLAG SCAN; Mean Corpuscular HGB Conc 32.4 g/dl (31.0-35.0); Mean Corpuscular Hemoglobin 28.7 pg (27.0-33.0); Mean Corpuscular Volume 88.5 fL (80.0-98.0); NRBC Abs Auto 0.000 X10*3/uL (0.0-0.012); NRBC Pct Auto 0.0 /100WBC (0.0-0.2); Platelet Count 450 X10*3/uL (160-400); Red Blood Count 4.43 X10*6/uL (4.20-5.50); SCAN SMEAR FLAG 1; White Blood Count 8.9 X10*3/uL (4.8-10.8)
[2025-04-22 13:05] LABS: B Type Natriuretic Peptide 381 pg/mL (<100)
[2025-04-22 13:19] LABS: Alanine Aminotransferase 9 U/L (0-31); Albumin Level 4.5 g/dL (3.5-5.0); Alkaline Phosphatase 130 U/L (39-117); Anion Gap 14 (12-20); Aspartate Amino Transferase 20 U/L (5-31); Blood Urea Nitrogen 13 mg/dL (9-16); Calcium 9.6 mg/dL (8.4-10.2); Carbon Dioxide 25 mmol/L (22-29); Chloride 107 mmol/L (96-108); Estimated Glomerular Filt Rate 59; Magnesium 1.9 mg/dL (1.6-2.6); Potassium 4.1 mmol/L (3.3-5.1); Sodium 142 mmol/L (135-145); Total Protein 8.3 g/dL (6.5-8.0)
[2025-04-22 13:37] LABS: Free T4 (Free Thyroxine) 1.17 ng/dL (0.71-1.85); Thyroid Stimulating Hormone 1.18 uIU/mL (0.32-4.0)
== END 2025-04-22 10:15 | disposition home or self-care (01) ==
LOC: HO.LAB 10:14
PROVIDERS: PCP Internal Medicine; Visit Provider Internal Medicine
DX: R19.7 Diarrhea, unspecified (principal); I42.9 Cardiomyopathy, unspecified; E78.00 Pure hypercholesterolemia, unspecified; R73.02 Impaired glucose tolerance (oral); G31.84 Mild cognitive impairment of uncertain or unknown etiology; J41.8 Mixed simple and mucopurulent chronic bronchitis; R05.9 Cough, unspecified; F17.210 Nicotine dependence, cigarettes, uncomplicated; Z79.2 Long term (current) use of antibiotics; Z79.899 Other long term (current) drug therapy
CPT/HCPCS: 36415; 80053; 83735; 83880; 84439; 84443; 85025; 99212

== ENCOUNTER 2025-04-29 11:28 | Outpatient (AMB) | payer MEDICARE, SELFPAY ==
--- NOTE | 2025-04-29 11:33 | MHC.OFFVIS ---
Vital Signs 04/29/25 11:41 BP 161/69 H Intake Visit Reasons: MRI result Allergies No Known Allergies (No Known Allergies*) Allergy (Verified 04/22/25 10:31) HPI Comments Details: 70 years old woman with COPD and mild cognitive impairment. Serum B12, folate, and TSH were with a normal limits. A beta/tau serum test suggested low likelihood of Alzheimer. MRI of brain revealed significant small and medium-sized vessel ischemic disease of brain with mild cerebral atrophy. Vascular component was larger than degenerative. She did not have any new symptoms. [facility] Medical History (Updated 04/29/25 @ 11:46 by Nakul Ledesma MD) Amnesia Memory changes Oral thrush COPD with acute exacerbation Community acquired bacterial pneumonia Allergic conjunctivitis and rhinitis Difficulty sleeping Lip numbness Numbness of fingers Osteoporosis Hypercholesterolemia Generalized anxiety disorder Pulmonary nodules COPD (chronic obstructive pulmonary disease) Personal history of nicotine dependence Vitamin B12 deficiency Diverticulosis Insomnia Osteoporosis Surgical History History of left breast biopsy History of colonoscopy Family History Daughter Hx of cervical cancer Father Family hx of prostate cancer Mother Myocardial infarct Maternal Aunt Pancreatic cancer, Onset Age: 55 Social History Household Members: Family Housing: House Do you presently have visiting nurse or other home services: No Alcohol intake: current Alcohol intake frequency: holidays/special occasions only Patient Tobacco Use Status: Former Tobacco user Tobacco use type: Cigarette Cigarette Packs Per Day: 0.5 Cigarettes Per Day: 4 Years Smoked: 17 years e-Cigarette/Vaping Use: Never Used Second Hand Smoke Exposure: Yes service: No Current occupational status: retired Current occupational exposures/hazards: No Cognitive needs: No Hearing needs: No Vision needs: Yes (Glasses) Review of Systems Const Details: No new symptoms. Physical Exam Neuro Other: She is alert and awake with normal spontaneity of speech fluency comprehension and flat affect. Walking is slightly cautious. Assessment & Plan Assessment & Plan (1) Vascular dementia: Comment: MRI brain WO at [facility] in Mar 2025: Mod MVD, mild atrophy Abeta/tau ratio at [facility] in Mar 2025: Low likelihood of AD Code(s): F01.50 - Vascular dementia, unspecified severity, without behavioral disturbance, psychotic disturbance, mood disturbance, and anxiety Category: Medical Qualifiers: Dementia severity: mild Dementia behavioral or psychological symptom: without behavioral, psychotic, or mood disturbance or anxiety Qualified Code(s): F01.A0 - Vascular dementia, mild, without behavioral disturbance, psychotic disturbance, mood disturbance, and anxiety Plan Impression: Mild dementia with significant microvascular ischemic disease of brain and uncontrolled HTN Rec: a: Control BP b: Baby aspirin daily c: Statin treatment Coding Level of Care Code Est Pt Level 5 (69936) Diagnoses Mild vascular dementia without behavioral disturbance, psychotic disturbance, mood disturbance, or anxiety F01.A0 Dementia severity: mild Dementia behavioral or psychological symptom: without behavioral, psychotic, or mood disturbance or anxiety
[2025-04-29 11:41] VITALS: BP 161/69
== END 2025-04-29 11:46 | disposition home or self-care (01) ==
LOC: HO.HSM 11:29
PROVIDERS: PCP Internal Medicine; Visit Provider Psychiatry & Neurology Neurology
DX: F01.A0 Vascular dementia, mild, without behavioral disturbance, psychotic disturbance, mood disturbance, and anxiety (principal)
CPT/HCPCS: 99213

== ENCOUNTER → 2025-04-29 11:28 | Outpatient (BNVA) | payer MEDICARE, SELFPAY | PROVIDERS: PCP Internal Medicine; Visit Provider Psychiatry & Neurology Neurology | DX: F01.A0 Vascular dementia, mild, without behavioral disturbance, psychotic disturbance, mood disturbance, and anxiety (principal) | CPT/HCPCS: 99212 ==

== ENCOUNTER → 2025-05-07 10:58 | Outpatient (REF) | payer MEDICARE, SELFPAY | LOC: HO.SL 10:58 | PROVIDERS: PCP Internal Medicine; Visit Provider Nurse Practitioner Family | DX: Z13.89 Encounter for screening for other disorder (principal) ==

== ENCOUNTER 2025-05-15 15:32 | Outpatient (AMB) | payer MEDICARE, SELFPAY ==
[2025-05-15 15:34] VITALS: BP 132/84; PULSE 97; O2SAT 98; BMI 25.1
--- NOTE | 2025-05-15 15:34 | A.OFFVIS_ITS ---
Vital Signs 05/15/25 15:34 Height 4 ft 11 in Weight 124 lb 6 oz BMI 25.1 BP 132/84 Blood Pressure Location Rt brachial Position Sitting Pulse 97 Pulse Source Pulse Oximeter Pulse Oximetry (%) 98 Oxygen Delivery Method Room Air Intake Visit Reasons: chronic bronchitis Allergies No Known Allergies (No Known Allergies*) Allergy (Verified 05/15/25 15:35) HPI HPI chronic bronchitis: Details: Brittany is a pleasant 69 year old female, former 54 pack year smoker, recently quit 2 months ago with underlying COPD, chronic bronchitis, pulmonary nodules and osteoporosis. Today she is accompanied by her daughter.The patient has been using Breo for COPD management, which she reports as effective in controlling her symptoms, however continues to report shortness of breath and wheezing. She also uses albuterol MDI BID as well as nebulizer QD. She was prescribed Trelegy at the last visit, but it was not covered by her insurance. In November 2024, the patient had a CAT scan due to pneumonia, which revealed some lung scarring. The scarring has shown slight progression over time, raising concerns about pulmonary fibrosis. [facility] Medical History (Updated 05/16/25 @ 13:37 by Amparo Hubbard NP) Amnesia Memory changes Oral thrush COPD with acute exacerbation Community acquired bacterial pneumonia Allergic conjunctivitis and rhinitis Difficulty sleeping Lip numbness Numbness of fingers Osteoporosis Hypercholesterolemia Generalized anxiety disorder Pulmonary nodules COPD (chronic obstructive pulmonary disease) Personal history of nicotine dependence Vitamin B12 deficiency Diverticulosis Insomnia Osteoporosis Surgical History History of left breast biopsy History of colonoscopy Family History Daughter Hx of cervical cancer Father Family hx of prostate cancer Mother Myocardial infarct Maternal Aunt Pancreatic cancer, Onset Age: 55 Social History Household Members: Family Housing: House Do you presently have visiting nurse or other home services: No Alcohol intake: current Alcohol intake frequency: holidays/special occasions only Patient Tobacco Use Status: Former Tobacco user Tobacco use type: Cigarette Cigarette Packs Per Day: 0.5 Cigarettes Per Day: 4 Years Smoked: 17 years e-Cigarette/Vaping Use: Never Used Second Hand Smoke Exposure: Yes service: No Current occupational status: retired Current occupational exposures/hazards: No Cognitive needs: No Hearing needs: No Vision needs: Yes (Glasses) Review of Systems Const Denies chills, Denies excessive sweating, Denies fever(s), Denies headache(s) and Denies night sweats Eyes Denies dry eyes, Denies irritation and Denies itchy eyes ENT Reports Normal hearing present, Denies headache(s), Denies nasal congestion, Denies nasal discharge, Denies post nasal drip and Denies sore throat Card Denies chest pain, Denies chest pain at rest, Denies chest pain with activity, Denies claudication, Denies leg edema, Denies orthopnea and Denies paroxysmal nocturnal dyspnea Resp Denies chest congestion, Denies excessive phlegm production, Denies pain on inspiration, Denies pain with cough and Denies stridor Musc Denies myalgias Neuro Reports Normal hearing present and Denies headache(s) Endo Denies excessive sweating Alex/Lymph Denies lymphadenopathy Aller/Immun Denies itchy eyes and Denies seasonal rhinorrhea Physical Exam Vital Signs: Last Vital Signs Pulse 97 05/15/25 15:34 BP 132/84 05/15/25 15:34 Pulse Ox 98 05/15/25 15:34 Oxygen Delivery Method Room Air 05/15/25 15:34 BMI result Body Mass Index 25.1 Const General: cooperative, healthy appearing, comfortable, no acute distress, well developed and alert Orientation/consciousness: patient oriented x3 Limitations: no limitations HEENT Head: Yes normal to inspection, Yes normocephalic and Yes atraumatic Ears: hearing grossly normal bilaterally and external ears normal Eyes General: appearance normal, both eyes and all related structures Eyelids: Yes eyelids normal Sclerae: sclerae normal EOM: EOMs intact bilaterally Neck Neck: Yes normal visual inspection and Yes no lymphadenopathy Lymphatic: no lymphadenopathy noted Chest Chest palpation & inspection: normal inspection of the chest Resp Other: faint bibasilar inspiratory crackles Effort & Inspection: normal respiratory effort, able to speak in complete sentences, no audible wheezes, no cough, no stridor, not tachypneic, no tripod positioning and no use of accessory muscles Cardio Jugular venous distension: no JVD Rate: regular rate Rhythm: regular rhythm Skin Other: warm, dry General skin exam: no rashes or lesions noted Neuro General: patient oriented x3 Cranial nerves: Yes Normal hearing present Cognition (Neuro): normal cognition Gait exam (Neuro): Normal gait present Extrem General: Yes normal to inspection, Yes capillary refill normal, Yes no clubbing, cyanosis or edema and Yes no pedal edema Psych Appearance: grossly normal and well kempt Speech and movement: Normal speech and movement present and Clear speech present Affect: normal affect Attitude: cooperative Thought process: Normal thought process present Thought content: Normal thought content present Insight: Good insight present (Psych) Judgement: Good judgement present (Psych) Results Reviewed Results Reviewed: [address] [address] [address] Scan Report Signed Patient: Brittany Harris MR#: [id number] : 1955 Acct:[id number] Age/Sex: 69 / F ADM Date: 12/15/24 Loc: HO.ED Attending Dr: Ordering Physician: Amparo Shay MD Date of Service: 12/16/24 Procedure(s): CT chest wo IV con Accession Number(s): [id number] cc: Amparo Shay MD; Sofía Gallo MD~ Report Number: [id number]: Total DLP = 215.00 mGy-cm CLINICAL HISTORY: fever, cough, elevated BNP CT chest without contrast Comparison: Chest x-ray from 12/15/2024. Findings: Bilateral pulmonary opacities are nonspecific and can be seen with pulmonary edema and pneumonitis. These are superimposed on chronic lung disease given moderate to marked multifocal emphysematous changes mild bilateral peripheral scarring. Trace left pleural effusion present. No pneumothorax. Multiple mediastinal lymph nodes are nonspecific by noncontrast CT with right paratracheal measuring 7 mm short axis (imaged 40 of series 5). Vascular calcifications are multifocal including aorta, its branches, and coronary arteries. Small hiatal hernia. Mild mediastinal fluid. Mixed density of the diminutive thyroid without enlarged nodule or nodule greater than [address] Mild rib deformities appear old/chronic. Degenerative changes include imaged spine. Mild/minimal vertebral height losses appear old/chronic. Multiple hemangiomas and Schmorl's nodes noted. Facet arthropathy including mid and lower thoracic spine. IMPRESSION: 1. Mild bilateral pulmonary opacities are nonspecific and can be seen with pulmonary edema and pneumonitis. 2. Emphysematous changes again noted. 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 She is aware to call if symptoms continue to be uncontrolled. A follow-up Chest CT will be scheduled to monitor the progression of lung scarring, with potential blood work to rule out autoimmune causes if progression is noted. If scarring progresses, prednisone may be considered to manage inflammation. All questions were were answered and patient is in agreement of plan. Will follow-up to review results or sooner if needed. Orders: Orders CT chest wo IV con Today R91.8 - Other nonspecific abnormal finding of lung field Medications: New umeclidinium 62.5 mcg/actuation (Incruse Ellipta) 1 inh inhalation DAILY 30 ea 3RF Discontinued oxfshwkzyxe-herwtklzy-ipewsawu 200-62.5-25 mcg (Trelegy Ellipta) Discontinued Reason: Patient Completed Course 1 inh inhalation DAILY 60 ea 3RF Coding Level of Care Code Est Pt Level 4 (02118) Diagnoses Mixed simple and mucopurulent chronic bronchitis J41.8 COPD type: chronic bronchitis Chronic bronchitis type: mixed simple and mucopurulent Pulmonary nodules R91.8
== END 2025-05-15 15:54 | disposition home or self-care (01) ==
LOC: HO.HPSW 15:33
PROVIDERS: PCP Internal Medicine; Visit Provider Nurse Practitioner Family
DX: J41.8 Mixed simple and mucopurulent chronic bronchitis (principal); R91.8 Other nonspecific abnormal finding of lung field
CPT/HCPCS: 99214

== ENCOUNTER → 2025-05-15 15:32 | Outpatient (BNVA) | payer MEDICARE, SELFPAY | PROVIDERS: PCP Internal Medicine; Visit Provider Nurse Practitioner Family | DX: J41.8 Mixed simple and mucopurulent chronic bronchitis (principal); Z72.0 Tobacco use | CPT/HCPCS: 99212 ==

== ENCOUNTER 2025-05-22 16:04 | Outpatient (AMB) | payer MEDICARE, SELFPAY ==
[2025-05-22 16:11] VITALS: BP 132/68; PULSE 106; O2SAT 98; BMI 24.8
--- NOTE | 2025-05-22 16:11 | A.OFFPC_ITS ---
Vital Signs 05/22/25 16:11 Height 4 ft 11 in Weight 123 lb BMI 24.8 BP 132/68 Blood Pressure Location Lt brachial Position Sitting Pulse 106 H Pulse Source Pulse Oximeter Pulse Oximetry (%) 98 Oxygen Delivery Method Room Air Intake Visit Reasons: CArdiomyopathy Allergies No Known Allergies (No Known Allergies*) Allergy (Verified 05/22/25 16:11) Medication List - Last Reconciled 05/22/25 by Sofía Gallo MD albuterol sulfate 90 mcg/actuation 2 inhalations inhalation Q6H PRN 30 days aspirin 81 mg PO DAILY cetirizine (Zyrtec) 10 mg PO DAILY cholecalciferol (vitamin D3) (Vitamin D3) 50 mcg PO DAILY diclofenac sodium 1% (Voltaren Arthritis Pain) 4 grams topical QID PRN fluticasone propionate 50 mcg/actuation (Flonase Allergy Relief) 1 spray intranasal DAILY hydrocortisone 2.5% (Proctosol HC) 1 appl [place] BID-QID PRN hydroxyzine HCl 25 mg PO BEDTIME PRN ipratropium-albuterol 0.5 mg-3 mg(2.5 mg base)/3 mL 3 mL inhalation Q6H PRN loperamide (Imodium A-D) 2 mg PO QID PRN mecobalamin (vitamin B12) 1,000 mcg sublingual DAILY 30 days melatonin 10 mg PO BEDTIME PRN rosuvastatin 5 mg PO DAILY sertraline 50 mg PO DAILY umeclidinium 62.5 mcg/actuation (Incruse Ellipta) 1 inh inhalation DAILY Tobacco use date assessed: 01/23/25 Fall risk assessment: No Falls in past year Last assessed Fall Risk: 05/22/25 Dental Screening Dental Screen Date: 01/23/25 [facility] Medical History (Updated 05/16/25 @ 13:37 by Amparo Hubbard NP) Amnesia Memory changes Oral thrush COPD with acute exacerbation Community acquired bacterial pneumonia Allergic conjunctivitis and rhinitis Difficulty sleeping Lip numbness Numbness of fingers Osteoporosis Hypercholesterolemia Generalized anxiety disorder Pulmonary nodules COPD (chronic obstructive pulmonary disease) Personal history of nicotine dependence Vitamin B12 deficiency Diverticulosis Insomnia Osteoporosis Surgical History History of left breast biopsy History of colonoscopy Family History Daughter Hx of cervical cancer Father Family hx of prostate cancer Mother Myocardial infarct Maternal Aunt Pancreatic cancer, Onset Age: 55 Social History Household Members: Family Housing: House Do you presently have visiting nurse or other home services: No Alcohol intake: current Alcohol intake frequency: holidays/special occasions only Patient Tobacco Use Status: Former Tobacco user Tobacco use type: Cigarette Cigarette Packs Per Day: 0.5 Cigarettes Per Day: 4 Years Smoked: 17 years e-Cigarette/Vaping Use: Never Used Second Hand Smoke Exposure: Yes service: No Current occupational status: retired Current occupational exposures/hazards: No Cognitive needs: No Hearing needs: No Vision needs: Yes (Glasses) Questionnaire Thrive Questionnaire Date Thrive assessed: 01/16/25 I am a: Patient What is your living situation today?: I have a steady place to live Within the past 12 months, did the food you bought not last and you didn't have the money to get more?: Never true Within the past 12 months, did you worry whether your food would run out before you got money to buy more?: Never true Do you have trouble paying for medicines?: No Do you have trouble getting transportation to medical appointments?: No Do you have trouble paying your heating and electricity bill?: No Do you have trouble taking care of your child, family member or friend?: No Do you have trouble with day-to-day activities such as bathing, preparing meals, shopping, managing finances, etc.?: No Are you currently unemployed and looking for a job?: No Are you interested in more education?: No Currently or been in a relationship where the following occur: No concerns reported THRIVE Score: 0 MAN-7 AMB Questionnaire MAN-7 Date MAN - 7 assessed: 01/23/25 Source: Developed by Drs. Leobardo Campos, Charlene Stoll, Syed Burk and colleagues, with an educational guera from [employer]. Physical exam (Primary Care) Vital Signs: Last Vital Signs Pulse 106 H 05/22/25 16:11 BP 132/68 05/22/25 16:11 Pulse Ox 98 05/22/25 16:11 Oxygen Delivery Method Room Air 05/22/25 16:11 BMI result Body Mass Index 24.8 Tobacco/Smoking Status: Tobacco use Status Tobacco use date assessed 01/23/25 05/22/25 16:15 Patient Tobacco Use Status Former Tobacco user 05/22/25 16:15 Tobacco use type Cigarette 05/22/25 16:15 e-Cigarette/Vaping Use Never Used 05/22/25 16:15 Thrive Assessment: Date of Thrive Assessment Date Thrive assessed 01/16/25 05/22/25 16:15 Currently or been in a relationship where the following occur: No concerns reported Const General: alert; No acute distress Eyes Conjunctivae: conjunctivae normal Resp Auscultation: clear to auscultation bilaterally Cardio Rate: regular rate Rhythm: regular rhythm GI Inspection: Yes normal to inspection Extrem General: Yes normal to inspection and No edema Coding Level of Care Code Est Pt Level 4 (85404) Complex EM visit Add On G2211 Diagnoses Hypertension I10 Hypercholesterolemia E78.00 Impaired glucose tolerance R73.02 Mild vascular dementia without behavioral disturbance, psychotic disturbance, mood disturbance, or anxiety F01.A0 Dementia behavioral or psychological symptom: without behavioral, psychotic, or mood disturbance or anxiety Dementia severity: mild Mixed simple and mucopurulent chronic bronchitis J41.8 COPD type: chronic bronchitis Chronic bronchitis type: mixed simple and mucopurulent Tobacco abuse Z72.0 Assessment & Plan Assessment & Plan (1) Hypertension: Code(s): I10 - Essential (primary) hypertension Category: Medical Plan: Decrease salt intake (2) Hypercholesterolemia: Code(s): E78.00 - Pure hypercholesterolemia, unspecified Category: Medical Plan: Avoid fried foods, chicken skin, eggs, butter margarine, pastries and meat. Be it pork or beef they have a lot of cholesterol LDL goal of less than 70 and triglyceride of less than 150 (3) Impaired glucose tolerance: Code(s): R73.02 - Impaired glucose tolerance (oral) Category: Medical Plan: Decrease the amount of carbohydrate intake, pasta, bread, rice and potatoes are all sugar and that is aside from all the sweet stuff, remember that fruits are good but they are Sweet also. (4) Vascular dementia: Comment: [place] [facility] [place]: Mod MVD, mild atrophy Abeta/tau [place] [facility] [place]: Low likelihood of AD Code(s): F01.50 - Vascular dementia, unspecified severity, without behavioral disturbance, psychotic disturbance, mood disturbance, and anxiety Category: Medical Qualifiers: Dementia behavioral or psychological symptom: without behavioral, psychotic, or mood disturbance or anxiety Dementia severity: mild Qualified Code(s): F01.A0 - Vascular dementia, mild, without behavioral disturbance, psychotic disturbance, mood disturbance, and anxiety Plan: Patient has seen Neurology and control blood pressure cholesterol (5) COPD (chronic obstructive pulmonary disease): Code(s): J44.9 - Chronic obstructive pulmonary disease, unspecified Category: Medical Qualifiers: COPD type: chronic bronchitis Chronic bronchitis type: mixed simple and mucopurulent Qualified Code(s): J41.8 - Mixed simple and mucopurulent chronic bronchitis Plan: Patient has seen Pulmonary and has been placed on Incruse in addition to Breo and albuterol inhaler (6) Tobacco abuse: Comment: still smoking 08/2023, enrolled in the lung cancer screening July 2024- stopped 11/2024 Code(s): Z72.0 - Tobacco use Category: Medical Plan: Patient is in the lung cancer screening program. Plan History of Present Illness The patient is a 70-year-old female presenting for a follow-up visit. She has a history of osteoporosis, with the last bone density scan conducted in May 2024. The patient is a smoker, which may contribute to her osteoporosis and other health conditions. The patient has been diagnosed with Chronic Obstructive Pulmonary Disease (COPD) and was recently seen by a nailer machine on May 15, where she was diagnosed with chronic bronchitis. She is currently on Breo and Incruse, with a follow-up CT scan scheduled to monitor lung scarring progression. The patient has generalized anxiety disorder and is also managing hypercholesterolemia and hypertension. Her cholesterol was last tested in January, showing an LDL of 95 mg/dL, and she is on a plan to reduce LDL to less than 70 mg/dL and triglycerides to less than 150 mg/dL. She has a history of cardiomyopathy with congestive heart failure and vascular dementia, diagnosed by neurology on April 29. The patient was advised to control her blood pressure and is currently on aspirin therapy. The patient reports persistent diarrhea since March, with watery stools and associated hemorrhoids. A referral to gastroenterology was made on April 22, and stool testing has been requested. [facility] Lung cancer screening program participation - Cholesterol management with LDL goal of less than 70 mg/dL and triglycerides less than 150 mg/dL - Blood pressure monitoring and reduction of salt intake - Aspirin therapy for cardiovascular prevention - Stool testing for diarrhea evaluation Social History - Smoking: The patient is a smoker, which may impact her osteoporosis and other health conditions. - Diet: Advised to reduce intake of fried foods, chicken skin, eggs, butter, margarine, meats, pork, beef, and fast foods to manage cholesterol levels. - Exercise: Encouraged to continue exercises to improve good cholesterol levels. Review of Systems - Respiratory: Reports dyspnea on exertion. Denies cough, hemoptysis, or wheezing. - Gastrointestinal: Reports persistent watery diarrhea since March. Denies formed stools. - Cardiovascular: Denies chest pain, orthopnea, or syncope. - Neurological: Denies headaches, dizziness, or balance issues. Physical Exam Results - Labs: Cholesterol tested in January with LDL of 95 mg/dL. - Labs: Blood work on April 22 showed normal blood count, electrolytes, blood sugar, and kidney function. - Labs: BMP was 381. Plan Patient was informed and verbally consented to the use of an ambient scribe for clinic note documentation during this visit. 1. Osteoporosis The patient has a history of osteoporosis, with the last bone density scan conducted in May 2024. Smoking cessation is advised to help manage osteoporosis. 2. Chronic Obstructive Pulmonary Disease (Copd) The patient is diagnosed with COPD and chronic bronchitis, managed with Breo and Incruse. A follow-up CT scan is scheduled to monitor lung scarring progression. 3. Generalized Anxiety Disorder The patient is managing generalized anxiety disorder. 4. Hypercholesterolemia The patient is on a cholesterol management plan with a goal to reduce LDL to less than 70 mg/dL and triglycerides to less than 150 mg/dL. Rosuvastatin has been prescribed, and a follow-up cholesterol test is scheduled in three months. 5. Hypertension The patient is advised to monitor blood pressure and reduce salt intake. 6. Cardiomyopathy With Congestive Heart Failure The patient has a history of cardiomyopathy with congestive heart failure. 7. Vascular Dementia The patient was diagnosed with vascular dementia and advised to control blood pressure and cholesterol levels. 8. Diarrhea The patient reports persistent diarrhea since March, with a referral to gastroenterology and stool testing requested. 9. Hemorrhoids The patient reports hemorrhoids, and a cream has been prescribed for management. Discussion Notes During the visit, we discussed the management of the patient's multiple chronic conditions, including COPD, hypercholesterolemia, and hypertension. We reviewed the importance of medication adherence, lifestyle modifications, and regular follow-up appointments to monitor her health status. The patient was informed about the need for a follow-up CT scan to assess lung scarring and the importance of controlling blood pressure and cholesterol levels to manage vascular dementia. Patient Instructions - Continue taking prescribed medications, including Breo, Incruse, and rosuvastatin. - Monitor blood pressure regularly and reduce salt intake. - Follow up with gastroenterology for diarrhea evaluation and complete stool testing. - Attend scheduled follow-up appointments and CT scan. - Engage in regular physical activity to improve cholesterol levels. Orders: Orders Comprehensive Met. Panel 3 Months E78.00 - Pure hypercholesterolemia, unspec ified Hemoglobin A1c 3 Months E78.00 - Pure hypercholesterolemia, unspecified Ova and Parasite Today R19.7 - Diarrhea, unspecified Lipid Panel 3 Months E78.00 - Pure hypercholesterolemia, unspecified Medications: New rosuvastatin 5 mg PO DAILY 30 tabs 3RF E78.00 - Pure hypercholesterolemia, unspecified aspirin 81 mg PO DAILY 90 tabs 3RF
== END 2025-05-22 16:48 | disposition home or self-care (01) ==
LOC: HO.HMCH 16:05
PROVIDERS: PCP Internal Medicine; Visit Provider Internal Medicine
DX: I10 Essential (primary) hypertension (principal); E78.00 Pure hypercholesterolemia, unspecified; F01.A0 Vascular dementia, mild, without behavioral disturbance, psychotic disturbance, mood disturbance, and anxiety; J41.8 Mixed simple and mucopurulent chronic bronchitis; R73.02 Impaired glucose tolerance (oral); Z72.0 Tobacco use

== ENCOUNTER → 2025-05-22 16:04 | Outpatient (BNVA) | payer MEDICARE, SELFPAY | PROVIDERS: PCP Internal Medicine; Visit Provider Internal Medicine | DX: I11.0 Hypertensive heart disease with heart failure (principal); I42.9 Cardiomyopathy, unspecified; I50.9 Heart failure, unspecified; E78.00 Pure hypercholesterolemia, unspecified; R73.02 Impaired glucose tolerance (oral); F01.A0 Vascular dementia, mild, without behavioral disturbance, psychotic disturbance, mood disturbance, and anxiety; J41.8 Mixed simple and mucopurulent chronic bronchitis; F41.1 Generalized anxiety disorder; R19.7 Diarrhea, unspecified; K64.9 Unspecified hemorrhoids; M81.0 Age-related osteoporosis without current pathological fracture; F01.50 Vascular dementia, unspecified severity, without behavioral disturbance, psychotic disturbance, mood disturbance, and anxiety | CPT/HCPCS: 99212 ==

== ENCOUNTER 2025-06-11 11:39 | Outpatient (REF) | payer MEDICARE, SELFPAY ==
[2025-06-12 12:33] LABS: Leukocytes Stool Qualitative NEGATIVE (NEGATIVE)
== END 2025-06-11 11:40 | disposition home or self-care (01) ==
LOC: HO.LNP 11:39
PROVIDERS: Visit Provider Internal Medicine
DX: R19.7 Diarrhea, unspecified (principal)
CPT/HCPCS: 87177; 87209; 87493; 89055

== ENCOUNTER 2025-08-07 16:07 | Outpatient (REF) | payer MEDICARE, SELFPAY ==
--- NOTE | ~2025-08-07 | CT_ITS ---
CLINICAL HISTORY: R91.8 - Other nonspecific abnormal finding of lung field Exam: Nonenhanced CT chest with multiplanar reformats. Comparison: 12/16/2024 Findings: Lungs are free of focal consolidation. No new pulmonary nodules or parenchymal lesions are appreciated. Scattered tiny calcified granulomas appear stable. Subtle subpleural septal thickening appears improved compared with the prior exam although not resolved, raising the possibility of very minimal interstitial pulmonary edema. Mild centrilobular emphysematous changes are grossly stable. Airways appear patent. No pneumothorax. Bilateral subpleural honeycombing involving 4 bilateral lower lobes (5; 81) suggest idiopathic pulmonary fibrosis or usual interstitial pneumonitis. No new mediastinal or hilar masses or adenopathy. No pleural or pericardial effusions. Images below the diaphragms reveal no acute abnormalities. Osseous structures reveal no destructive osseous lesions. Impression: 1. Findings described above suggesting mild pulmonary fibrosis or usual interstitial pneumonitis. 2. Mild centrilobular emphysematous disease. 3. Slight septal thickening may be related to pulmonary fibrosis although the possibility of minimal interstitial edema can not be excluded. This document has been electronically signed by: Itz Rivera MD on 08/07/2025 17:43:39
--- NOTE | ~2025-08-07 | XR_ITS ---
EXAMINATION: XR CHEST CLINICAL INFORMATION: I42.9 - Cardiomyopathy, unspecified COMPARISON: Chest x-ray 03/05/2025.. TECHNIQUE: 2 views of the chest were obtained. FINDINGS: The lungs are well-expanded and clear acute pneumonic process. Heart size and pulmonary vascularity is normal. There is mild spondylosis with minimal scoliosis of dorsal spine. No aggressive lytic or sclerotic process seen. XR/XR chest 2V IMPRESSION: Unremarkable chest exam. No major change compared to previous study 03/05/2025 Electronically signed by: Remington Lamb MD 08/07/2025 04:41 PM EST
== END 2025-08-07 16:08 | disposition home or self-care (01) ==
LOC: HO.CT 16:07
PROVIDERS: PCP Internal Medicine; Visit Provider Nurse Practitioner Family
DX: R91.8 Other nonspecific abnormal finding of lung field (principal); I42.9 Cardiomyopathy, unspecified
CPT/HCPCS: 71046; 71250

== ENCOUNTER → 2025-08-07 16:13 | Outpatient (BNV) | payer MEDICARE, SELFPAY | PROVIDERS: PCP Internal Medicine; Visit Provider Radiology Diagnostic Radiology | DX: I42.9 Cardiomyopathy, unspecified (principal) | CPT/HCPCS: 71046 ==